=== PATIENT | male | born 1945 | race Caucasian/White ===

== ENCOUNTER → 2016-06-02 | Outpatient (CLI) | payer BC ==
[2016-06-02 13:04] LABS: BASO % 0.2 %; BASO ABS # 0.01 K/uL (0-0.2); COMPLETE YES; EOS % 2.1 %; HEMATOCRIT 45.5 % (42-52); IG% 0.5 %; LYMPH % 25.6 %; LYMPH ABS # 1.59 K/uL (1.2-3.4); MEAN CELL VOLUME 92.7 fL (80-100); MEAN CORPUSCULAR HEMOGLOBIN 32.8 pg (25-34); MEAN CORPUSCULAR HGB CONC 35.4 g/dl (32-36); MONO % 10.5 %; NEUT % 61.1 %; PLATELET COUNT 203 K/uL (130-400); RED BLOOD COUNT 4.91 M/uL (4.7-6.1); WHITE BLOOD COUNT 6.22 K/uL (4.8-10.8)
[2016-06-02 13:15] LABS: ALT/SGPT 29 U/L (12-78); AST/SGOT 17 U/L (15-37); BLOOD UREA NITROGEN 11 mg/dl (7-18); BUN/CREATININE RATIO 11.2 (10-20); CALCIUM 8.8 mg/dl (8.5-10.1); CARBON DIOXIDE 30 mmol/L (21-32); CHLORIDE 103 mmol/L (98-107); CREATININE 0.95 mg/dl (0.60-1.40); GLUCOSE 102 mg/dl (70-99); SODIUM 140 mmol/L (136-145)
[2016-06-02 13:20] LABS: ALKALINE PHOSPHATASE 59 U/L (45-117); CHOLESTEROL 176 mg/dl (0-200); CHOLESTEROL/HDL RATIO 3.2; HDL CHOLESTEROL 55 mg/dl; LDL CHOLESTEROL CALCULATED 108 mg/dl; TRIGLYCERIDES 63 mg/dl (0-150); VERY LOW DENSITY LIPOPROT CALC 13 mg/dl
[2016-06-02 13:22] LABS: ESTIMATED AVERAGE GLUCOSE 94 mg/dl; HA1C FLAG Normal (Normal)
--- NOTE | 2016-06-07 12:56 | CODING QUERY MEDICAL NECESSITY ---
SUPPORTING DIAGNOSIS NEEDED A supporting diagnosis is required for the test/procedure performed on this patient in order for us to be reimbursed by the patient's insurance. Please provide a supporting diagnosis for the following test/procedure listed below next to the test name along with your signature. *If there is no additional diagnosis for this patient that would support the following test/procedure please document that below next to the test/procedure. Test(s)/Procedure(s) that require a supporting diagnosis: * PSA DIAGNOSIS: * DOS: 06/02/16 Provider Signature: Date: Thank you Doris Marshall [facility] [employer] [facility] Once completed, please kindly fax back to [phone] For questions please call [phone]
== END | disposition home or self-care (01) ==
LOC: C.LABPBG 08:45
PROVIDERS: ATTEND Internal Medicine
DX: R73.01 Impaired fasting glucose (principal); Z12.5 Encounter for screening for malignant neoplasm of prostate

== ENCOUNTER → 2016-12-13 | Outpatient (CLI) | payer BC ==
[2016-12-13 12:13] LABS: BASO % 0.2 %; BASO ABS # 0.01 K/uL (0-0.2); COMPLETE YES; EOS % 2.8 %; HEMATOCRIT 44.9 % (42-52); IG% 0.3 %; LYMPH % 23.7 %; LYMPH ABS # 1.43 K/uL (1.2-3.4); MEAN CELL VOLUME 91.8 fL (80-100); MEAN CORPUSCULAR HEMOGLOBIN 32.3 pg (25-34); MEAN CORPUSCULAR HGB CONC 35.2 g/dl (32-36); PLATELET COUNT 184 K/uL (130-400); RED BLOOD COUNT 4.89 M/uL (4.7-6.1); WHITE BLOOD COUNT 6.03 K/uL (4.8-10.8)
[2016-12-13 12:16] LABS: ALT/SGPT 25 U/L (12-78); AST/SGOT 18 U/L (15-37); BLOOD UREA NITROGEN 13 mg/dl (7-18); BUN/CREATININE RATIO 12.6 (10-20); CALCIUM 8.7 mg/dl (8.5-10.1); CARBON DIOXIDE 30 mmol/L (21-32); CHLORIDE 104 mmol/L (98-107); CHOLESTEROL 126 mg/dl (0-200); GLUCOSE 95 mg/dl (70-99); POTASSIUM 4.2 mmol/L (3.5-5.1); SODIUM 141 mmol/L (136-145)
[2016-12-13 12:21] LABS: ALB/GLOB RATIO 0.9 (0.9-2); ALKALINE PHOSPHATASE 59 U/L (45-117); CHOLESTEROL/HDL RATIO 2.3; HDL CHOLESTEROL 55 mg/dl; LDL CHOLESTEROL CALCULATED 61 mg/dl; TRIGLYCERIDES 48 mg/dl (0-150); VERY LOW DENSITY LIPOPROT CALC 10 mg/dl
--- NOTE | 2016-12-22 12:59 | CODING QUERY MEDICAL NECESSITY ---
CQSUPPORTING DIAGNOSIS NEEDED A supporting diagnosis is required for the test/procedure performed on this patient in order for us to be reimbursed by the patient's insurance. Please provide a supporting diagnosis for the following test/procedure listed below next to the test name along with your signature. *If there is no additional diagnosis for this patient that would support the following test/procedure please document that below next to the test/procedure. Test(s)/Procedure(s) that require a supporting diagnosis: DOS 12/13/16 PROSTATE SPECIFIC TEST LIPID TEST Provider Signature: Date: Thank you Emerald Z[facility] Information Management Once completed, please kindly fax back to [phone] For questions please call [phone]
== END | disposition home or self-care (01) ==
LOC: C.LABPBG 07:48
PROVIDERS: ATTEND Internal Medicine
DX: F17.200 Nicotine dependence, unspecified, uncomplicated (principal); Z12.5 Encounter for screening for malignant neoplasm of prostate; E78.5 Hyperlipidemia, unspecified

== ENCOUNTER → 2017-03-08 | Outpatient (CLI) | payer BC | END | disposition home or self-care (01) | LOC: C.PATHSPEC 17:07 | PROVIDERS: ATTEND Urology | DX: R97.20 Elevated prostate specific antigen [PSA] (principal) ==

== ENCOUNTER 2017-06-11 15:16 | Inpatient (IN) | payer BC, OTHER ==
[~2017-06-11] VITALS: Ht 172.7 cm; Wt 82.6 kg
[~2017-06-11 15:16] MED LIST: ASPI325T45 PO; ATEN-173 PO; ATEN50TA8 PO; B CO1TAB7 PO; CHOL100010 PO; OMEG10007 PO; SIMV40TA2 PO
--- NOTE | 2017-06-11 15:35 | EMERGENCY ROOM VISIT NOTE ---
History Report prepared by Eitan: Donal Salazar Under the Supervision of: Dr. Ambrose Ronquillo D.O. First contact with patient: 15:26 Chief Complaint: LEG PAIN,LEG INJURY Stated Complaint: SWOLLEN LEFT LEG History of Present Illness The patient is a 72 year old male who presents to the Emergency Room with complaints of cramping left leg pain that began two days ago. He rates his pain mild in severity. He has a past medical history of a cardiac stent in place, hypertension, and prostate cancer. He denies any past medical history of PE or DVT. Three days ago, the patient went to his PCP to be evaluated. They next day , he woke up with left leg swelling which has never happened to him before. He then began to have this mild pain to his left calf that he states feels like a "Mj horse." He denies any fevers, headache, chest pain, shortness of breath , nausea, vomiting, abdominal pain, diarrhea, weakness, or numbness. He denies any trauma or injury to the area. He discontinued his Aspirin a couple of days ago to prepare him for his surgical procedure in two weeks. Source of History: patient Onset: two days ago Position: leg (left) Symptom Intensity: mild Quality: cramping Timing: constant Associated Symptoms: No fevers, No headache, No chest pain, No SOB, No nausea, No vomiting, No abdominal pain, No diarrhea, No weakness, No numbness Note: He is experiencing some left leg swelling as well. Review of Systems See HPI for pertinent positives & negatives. A total of 10 systems reviewed and were otherwise negative. Past Medical & Surgical Medical Problems: (1) HTN (hypertension) Family History Omitted secondary to the patient's age. Social History Smoking Status: Former Smoker Drug Use: none Marital Status: Housing Status: lives with family Occupation Status: retired Current/Historical Medications Scheduled Aspirin (Aspirin), 325 MG PO QAM Atenolol (Tenormin), 50 MG PO AM Atenolol (Atenolol), 25 MG PO HS B Complex W/ C (B Complex with C), 1 TAB PO QPM Cholecalciferol (Vitamin D), 1,000 INTER.UNIT PO QPM Fish Oil ([place]-3), 1 CAP PO QPM Simvastatin (Zocor), 40 MG PO QPM Allergies Coded Allergies: No Known Allergies (Verified , 2/13/18) Physical Exam Vital Signs Date Time Temp Pulse Resp B/P (MAP) Pulse Ox O2 Delivery O2 Flow Rate FiO2 06/11/17 17:25 67 133/72 94 Room Air 06/11/17 15:18 36.9 69 20 127/66 98 Room Air Physical Exam GENERAL: Patient is awake, alert, and in no acute distress. Patient is resting comfortably and showing no signs of anxiety EYES: The conjunctivae are clear. The pupils are round and reactive. EARS, NOSE, MOUTH AND THROAT: The nose is without any evidence of any deformity. Mucous membranes are moist tongue is midline NECK: The neck is nontender and supple. RESPIRATORY: Normal respiratory effort is noted there is no evidence of wheezing rhonchi or rales CARDIOVASCULAR: Regular rate and rhythm noted there no murmurs rubs or gallops normal S1 normal S2 GASTROINTESTINAL: The abdomen is soft. Bowel sounds are present in all quadrants. Abdomen is nontender MUSCULOSKELETAL/EXTREMITIES: There is no evidence of gross deformity full range of motion is noted in the hips and shoulders. Left calf tenderness to palpation. SKIN: Pedal edema bilaterally, left greater than right. Skin is warm and dry. Pulses symmetric. There is no obvious evidence of any rash. There are no petechiae, pallor or cyanosis noted. NEUROLOGIC: Patient is awake alert and oriented x3 strength is symmetric patellar reflexes are 2+ bilaterally Medical Decision & Procedures ER Provider Diagnostic Interpretation: Radiology results as stated below per my review and radiologist interpretation: ULTRASOUND VENOUS DOPPLER LWR EXT BILA CLINICAL HISTORY: Bilateral leg pain and swelling COMPARISON STUDY: No previous studies for comparison. FINDINGS: On the right, no intraluminal thrombus was visualized. The common femoral superficial femoral popliteal anterior tibial posterior tibial and peroneal veins are patent. On the left there is extensive thrombus with involvement of the common femoral, superficial femoral, popliteal, posterior tibial, peroneal and anterior tibial veins. IMPRESSION: 1. Extensive left lower extremity DVT 2. No evidence of right lower extremity DVT Electronically signed by: Charles Montague M.D. 06/11/2017 4:56 PM Dictated Date/Time: 06/11/2017 4:55 PM Laboratory Results 06/11/17 15:54 Test 06/11/17 15:54 Anion Gap 5.0 mmol/L (3-11) Est Creatinine Clear Calc Drug Dose 94.4 ml/min Estimated GFR () 106.4 Estimated GFR (Non- 91.8 BUN/Creatinine Ratio 6.4 (10-20) Calcium Level 8.7 mg/dl (8.5-10.1) Total Bilirubin 0.6 mg/dl (0.2-1) Aspartate Amino Transf (AST/SGOT) 14 U/L (15-37) Alanine Aminotransferase (ALT/SGPT) 17 U/L (12-78) Alkaline Phosphatase 69 U/L (45-117) Total Protein 7.6 gm/dl (6.4-8.2) Albumin 3.5 gm/dl (3.4-5.0) Globulin 4.1 gm/dl (2.5-4.0) Albumin/Globulin Ratio 0.9 (0.9-2) Laboratory results per my review. Medications Administered Medications (Trade) Dose Ordered Sig/Annie Route Start Time Stop Time Status Last Admin Dose Admin Enoxaparin Sodium (Lovenox Inj) 85 mg NOW ONCE SQ 06/11/17 17:15 06/11/17 17:16 DC 06/11/17 17:23 85 MG ED Course 1526: The patient was evaluated in room A11A. A complete history and physical examination were performed. 1715: Ordered Lovenox Inj 85 mg SQ 1720: Upon reevaluation, the patient is resting. I discussed results and treatment plan with him. He verbalizes agreement and understanding. I spoke with Dr. Arcos of the [facility]. The patient will be evaluated for further management and care. Medical Decision Differential diagnosis: Etiologies such as DVT, musculoskeletal, infection, joint effusion, trauma, lymphedema, idiopathic, CHF, as well as others were entertained.. Nursing notes reviewed. The patient is a 72-year-old male who presented to the emergency department with lower extremity edema. The patient has been noticing leg swelling for a short while. He is currently awaiting a workup because he was recently diagnosed with prostate cancer. The patient was found to have an extensive DVT in his left lower extremity. The patient was treated with Lovenox in the emergency department. I discussed this case with the on-call [facility] hospitalist group. They have agreed to evaluate the patient in the emergency department for further management and disposition. I discussed the patient's laboratory and radiographic studies with him. Medication Reconcilliation Current Medication List: was personally reviewed by me Blood Pressure Screening Patient's blood pressure: Normal blood pressure Blood pressure disposition: Did not require urgent referral Consults Time Called: 1715 Consulting Physician: Dr. Isrrael Laurent [facility] Returned Call: 1720 I discussed the patient's case with her. The patient will be evaluated for further management. Impression Primary Impression: Deep vein thrombosis (DVT) of left lower extremity Scribe Attestation The scribe's documentation has been prepared under my direction and personally reviewed by me in its entirety. I confirm that the note above accurately reflects all work, treatment, procedures, and medical decision making performed by me. Departure Information Dispostion Being Evaluated By Hospitalist Referrals Richard Bonilla M.D. (PCP) Patient Instructions My [facility] Problem Qualifiers Primary Impression: Deep vein thrombosis (DVT) of left lower extremity Affected thrombotic vein of extremity: unspecified vein of extremity Chronicity: acute Qualified Codes: I82.402 - Acute embolism and thrombosis of unspecified deep veins of left lower extremity
[2017-06-11 16:05] LABS: BASO % 0.1 %; BASO ABS # 0.01 K/uL (0-0.2); EOS % 2.2 %; EOS ABS # 0.17 K/uL (0-0.5); HEMOGLOBIN 15.1 g/dL (14.0-18.0); IG# 0.04 K/uL (0.00-0.02); LYMPH % 17.5 %; LYMPH ABS # 1.35 K/uL (1.2-3.4); MEAN CELL VOLUME 92.3 fL (80-100); MEAN CORPUSCULAR HEMOGLOBIN 32.4 pg (25-34); MEAN CORPUSCULAR HGB CONC 35.1 g/dl (32-36); MEAN PLATELET VOLUME 9.2 fL (7.4-10.4); MONO % 9.2 %; MONO ABS # 0.71 K/uL (0.11-0.59); NEUT % 70.5 %; NEUT ABS # 5.45 K/uL (1.4-6.5); PLATELET COUNT 149 K/uL (130-400); RED CELL DISTRIBUTION WIDTH CV 13.1 % (11.5-14.5); RED CELL DISTRIBUTION WIDTH SD 43.8 fL (36.4-46.3); WHITE BLOOD COUNT 7.73 K/uL (4.8-10.8)
[2017-06-11 16:19] LABS: PTT PATIENT 28.9 SECONDS (21.0-31.0)
[2017-06-11 16:23] LABS: ALBUMIN 3.5 gm/dl (3.4-5.0); CALCIUM 8.7 mg/dl (8.5-10.1); CREATININE 0.76 mg/dl (0.60-1.40); POTASSIUM 3.8 mmol/L (3.5-5.1)
[2017-06-11] MEDS ORDERED: TNR50 PO (16:24)
[2017-06-11 16:28] LABS: TOTAL PROTEIN 7.6 gm/dl (6.4-8.2)
--- NOTE | 2017-06-11 16:58 | DIAGNOSTIC IMAGING REPORT ---
ULTRASOUND VENOUS DOPPLER LWR EXT BILA CLINICAL HISTORY: Bilateral leg pain and swelling COMPARISON STUDY: No previous studies for comparison. FINDINGS: On the right, no intraluminal thrombus was visualized. The common femoral superficial femoral popliteal anterior tibial posterior tibial and peroneal veins are patent. On the left there is extensive thrombus with involvement of the common femoral, superficial femoral, popliteal, posterior tibial, peroneal and anterior tibial veins. IMPRESSION: 1. Extensive left lower extremity DVT 2. No evidence of right lower extremity DVT Electronically signed by: Charles Montague M.D. 06/11/2017 4:56 PM Dictated Date/Time: 06/11/2017 4:55 PM
[2017-06-11] MEDS ORDERED: ENOXAPARIN 100 MG/1ML SYR SQ ONE (17:15)
[2017-06-11] MEDS ORDERED: MAGNESIUM HYDROXIDE SUSP 30 ML UDC PO PRN (18:15)
[2017-06-11] MEDS ORDERED: ONDANSETRON INJ 2 MG/ML 2 ML VIAL IV PRN (18:15)
[2017-06-11] MEDS ORDERED: ACETAMINOPHEN 325 MG TAB PO PRN (18:15)
[2017-06-11] MEDS ORDERED: LORAZEPAM 2 MG/ML 1 ML VIAL IV PRN (18:30)
--- NOTE | 2017-06-11 18:32 | History and Physical ---
History & Physical Date & Time of Service: Jun 11, 2017 at 18:19 Chief Complaint: Swollen Left Leg Primary Care Physician: Richard Bonilla M.D. History of Present Illness Source: patient 72 y/o M c/o L LE pain and swelling. Pt states he was seen by PCP on Tuesday for a check-up and had no LE swelling or pain at that time. AM he woke up with L LE pain and swelling that has increased since that time. Pain is worse with ambulation. He has never had LE swelling like this before. No chest pain or SOB. Pt denies lightheadedness, dizziness fever, abd pain, n/v/c/ d. He has no prior hx of clotting. Pt with recent dx of prostate cancer. He was to have his prostate removed on 06/16. He takes aspirin for hx of SC and stent 17 years ago. This has been on hold since Tuesday for this procedure. Pt states he has held his aspirin prior for a c-scope x10 days and no issues. Past Medical/Surgical History Prostate ca, noted above hx of SC, s/p stent x17 years HTN Hyperlipidemia Family History Denies hx of clotting in other family Social History Smoking Status: Former Smoker (quit "a couple of years ago") Alcohol Use: 2-3 beers daily, has days without alcohol and no s/sx of withdrawal, is present and agrees Drug Use: none Marital Status: Occupational Status: retired Multi-Drug Resistant Organisms History of MDRO: No Allergies Coded Allergies: No Known Allergies (Verified , 05/31/17) Home Medications Scheduled Aspirin (Aspirin), 325 MG PO QAM Atenolol (Tenormin), 50 MG PO AM Atenolol (Atenolol), 25 MG PO HS B Complex W/ C (B Complex with C), 1 TAB PO QPM Cholecalciferol (Vitamin D), 1,000 INTER.UNIT PO QPM Fish Oil ([place]-3), 1 CAP PO QPM Simvastatin (Zocor), 40 MG PO QPM Review of Systems Pertinent positives and negatives reviewed in HPI--all others negative Physical Exam Vital Signs Date Time Temp Pulse Resp B/P (MAP) Pulse Ox O2 Delivery O2 Flow Rate FiO2 06/11/17 17:25 67 133/72 94 Room Air 06/11/17 15:18 36.9 69 20 127/66 98 Room Air General Appearance: WD/WN, no apparent distress Head: normocephalic, atraumatic Eyes: normal inspection, sclerae normal Respiratory/Chest: normal breath sounds, no respiratory distress Cardiovascular: regular rate, rhythm, no edema Abdomen/GI: non tender, soft Extremities/Musculoskelatal: no calf tenderness, no pedal edema Neurologic/Psych: alert, normal mood/affect, oriented x 3 Skin: normal color, warm/dry Diagnostics Laboratory Results Results Past 24 Hours Test 06/11/17 15:54 Range/Units White Blood Count 7.73 4.8-10.8 K/uL Red Blood Count 4.66 4.7-6.1 M/uL Hemoglobin 15.1 14.0-18.0 g/dL Hematocrit 43.0 42-52 % Mean Corpuscular Volume 92.3 80-100 fL Mean Corpuscular Hemoglobin 32.4 25-34 pg Mean Corpuscular Hemoglobin Concent 35.1 32-36 g/dl Platelet Count 149 130-400 K/uL Mean Platelet Volume 9.2 7.4-10.4 fL Neutrophils (%) (Auto) 70.5 % Lymphocytes (%) (Auto) 17.5 % Monocytes (%) (Auto) 9.2 % Eosinophils (%) (Auto) 2.2 % Basophils (%) (Auto) 0.1 % Neutrophils # (Auto) 5.45 1.4-6.5 K/uL Lymphocytes # (Auto) 1.35 1.2-3.4 K/uL Monocytes # (Auto) 0.71 0.11-0.59 K/uL Eosinophils # (Auto) 0.17 0-0.5 K/uL Basophils # (Auto) 0.01 0-0.2 K/uL RDW Standard Deviation 43.8 36.4-46.3 fL RDW Coefficient of Variation 13.1 11.5-14.5 % Immature Granulocyte % (Auto) 0.5 % Immature Granulocyte # (Auto) 0.04 0.00-0.02 K/uL Prothrombin Time 10.0 9.0-12.0 SECONDS Prothromb Time International Ratio 1.0 0.9-1.1 Activated Partial Thromboplast Time 28.9 21.0-31.0 SECONDS Partial Thromboplastin Ratio 1.1 Sodium Level 134 136-145 mmol/L Potassium Level 3.8 3.5-5.1 mmol/L Chloride Level 100 98-107 mmol/L Carbon Dioxide Level 29 21-32 mmol/L Anion Gap 5.0 3-11 mmol/L Blood Urea Nitrogen 5 7-18 mg/dl Creatinine 0.76 0.60-1.40 mg/dl Est Creatinine Clear Calc Drug Dose 94.4 ml/min Estimated GFR () 106.4 Estimated GFR (Non- 91.8 BUN/Creatinine Ratio 6.4 10-20 Random Glucose 94 70-99 mg/dl Calcium Level 8.7 8.5-10.1 mg/dl Total Bilirubin 0.6 0.2-1 mg/dl Aspartate Amino Transf (AST/SGOT) 14 15-37 U/L Alanine Aminotransferase (ALT/SGPT) 17 12-78 U/L Alkaline Phosphatase 69 45-117 U/L Total Protein 7.6 6.4-8.2 gm/dl Albumin 3.5 3.4-5.0 gm/dl Globulin 4.1 2.5-4.0 gm/dl Albumin/Globulin Ratio 0.9 0.9-2 Diagnostic Radiology LE US: R neg On the left there is extensive thrombus with involvement of the common femoral, superficial femoral, popliteal, posterior tibial, peroneal and anterior tibial veins. Impression Assessment and Plan 72 y/o M who was admitted on 06/11 for extensive L LE DVT L LE DVT: noted to be extensive, likely related to prostate ca Lovenox x1 in the ED, will start on heparin and monitor Holding PO agents given possible prostate surgery No s/sx of PE, will hold on scan for now. Discussed with pt and Prostate ca: Planning for prostatectomy on 06/[address] Springer Urology c/s for further planning to determine coagulation options It is unclear if the prostate dx requires urgent intervention vs waiting for tx of DVT prior to surgery CAD: s/p stent Aspirin on hold for OR Alcohol use: no hx of withdrawal and reports 2-3 beers daily, which agrees with Ativan PRN with WAS assessment Will hold on scheduled prevention for now but advised to call nursing if any concern for anxiety, nervousness, shaking, etc HTN: stable, continue home meds HLD: continue home meds Other: Full code AHA diet Heparin for DVT proph Level of Care Telemetry Resuscitation Status FULL RESUSCITATION VTE Prophylaxis VTE Risk Assessment Done? Y/N: Yes Risk Level: Low
[2017-06-11 19:15] VITALS: BP 165/70; PULSE 66; TEMP 37; O2SAT 92; Ht 172.7 cm; Wt 82.6 kg
[2017-06-11 19:19] VITALS: BP 165/70; PULSE 70; TEMP 37; O2SAT 88
[2017-06-11 19:24] VITALS: PULSE 66; O2SAT 92
[2017-06-11] MEDS: SIMVASTATIN 40 MG TAB PO SCH (22:00)
[2017-06-11] MEDS: CHOLECALCIFEROL 1000 INTER.UNIT TAB PO SCH (22:01)
[2017-06-11 23:25] VITALS: BP 113/57; PULSE 67; TEMP 36.7; O2SAT 92
[2017-06-12] VITALS (10 sets, daily range): BP systolic 105–125; BP diastolic 58–73; PULSE 60–69; TEMP 36.7–37; O2SAT 91–93
[2017-06-12 04:24] LABS: BASO % 0.1 %; BASO ABS # 0.01 K/uL (0-0.2); EOS % 3.5 %; EOS ABS # 0.24 K/uL (0-0.5); HEMATOCRIT 40.4 % (42-52); HEMOGLOBIN 14.1 g/dL (14.0-18.0); IG# 0.02 K/uL (0.00-0.02); LYMPH % 21.8 %; LYMPH ABS # 1.49 K/uL (1.2-3.4); MEAN CELL VOLUME 92.7 fL (80-100); MEAN CORPUSCULAR HEMOGLOBIN 32.3 pg (25-34); MEAN PLATELET VOLUME 9.1 fL (7.4-10.4); MONO % 11.5 %; MONO ABS # 0.79 K/uL (0.11-0.59); NEUT % 62.8 %; NEUT ABS # 4.29 K/uL (1.4-6.5); PLATELET COUNT 146 K/uL (130-400); RED CELL DISTRIBUTION WIDTH CV 13.1 % (11.5-14.5); RED CELL DISTRIBUTION WIDTH SD 44.5 fL (36.4-46.3); WHITE BLOOD COUNT 6.84 K/uL (4.8-10.8)
[2017-06-12 04:28] LABS: MEAN CORPUSCULAR HGB CONC 34.9 g/dl (32-36)
[2017-06-12] MEDS: HEPARIN 25,000 UNIT/500ML D5W 500 ML IV PRN ×3 (05:28→22:55)
[2017-06-12 06:07] LABS: PTT PATIENT 33.4 SECONDS (21.0-31.0)
--- NOTE | 2017-06-12 11:09 | Progress Note ---
Subjective Date of Service: Jun 12, 2017. Subjective Pt evaluation today including: conversation w/ patient, physical exam, lab review, review of studies, review of inpatient medication list Pain: mild left leg pain PO Intake: adequate Voiding: no voiding problems patient feels the same, left leg swollen, mild pain eating well no chest pain, no dyspnea, no tachycardia awaiting urology recommendations discussed possible options with patient such as IVC filter for surgery Problem List Medical Problems: (1) Deep vein thrombosis (DVT) of left lower extremity Status: Acute Review of Systems Musculoskeletal: + swelling (left leg swollen) All Other Systems: Reviewed and Negative Medications Current Inpatient Medications Medications (Trade) Dose Ordered Sig/Annie Route Start Time Stop Time Status Last Admin Dose Admin Acetaminophen (Tylenol Tab) 650 mg Q4H PRN PO 06/11/17 18:15 07/11/17 18:14 Magnesium Hydroxide (Milk Of Magnesia Susp) 30 ml Q12H PRN PO 06/11/17 18:15 07/11/17 18:14 Ondansetron HCl (Zofran Inj) 4 mg Q6H PRN IV 06/11/17 18:15 07/11/17 18:14 Atenolol (Tenormin Tab) 25 mg HS PO 06/11/17 21:00 07/11/17 20:59 06/11/17 22:00 25 MG Atenolol (Tenormin Tab) 50 mg DAILY PO 06/12/17 09:00 07/12/17 08:59 06/12/17 08:57 50 MG Cholecalciferol (Vitamin D Tab) 1,000 inter.unit QPM PO 06/11/17 21:00 07/11/17 20:59 06/11/17 22:01 1,000 INTER.UNIT Simvastatin (Zocor Tab) 40 mg QPM PO 06/11/17 21:00 07/11/17 20:59 06/11/17 22:00 40 MG Vitamin B Complex (Vitamin B Complex) 1 tab QPM PO 06/12/17 21:00 07/12/17 20:59 Lorazepam (Ativan Inj) 0.5 mg Q1H PRN IV 06/11/17 18:30 07/11/17 18:29 Heparin Sodium/ Dextrose 500 ml @ 27 mls/hr [id number] PRN IV 06/12/17 05:23 07/12/17 05:22 06/12/17 07:13 27 MLS/HR Objective Vital Signs Date Time Temp Pulse Resp B/P (MAP) Pulse Ox O2 Delivery O2 Flow Rate FiO2 06/12/17 07:41 36.9 62 20 105/58 (74) 91 Room Air 06/12/17 05:06 Room Air 06/12/17 04:15 36.7 64 16 118/70 (86) 92 Room Air 06/12/17 00:00 Room Air 06/11/17 23:25 36.7 67 20 113/57 (75) 92 Room Air 67 06/11/17 19:24 66 92 Room Air 06/11/17 19:19 37.0 70 18 165/70 (101) 88 Room Air 06/11/17 19:15 37.0 66 18 165/70 92 Room Air 06/11/17 19:09 64 133/56 95 06/11/17 17:25 67 133/72 94 Room Air 06/11/17 15:18 36.9 69 20 127/66 98 Room Air Physical Exam General Appearance: WD/WN, no apparent distress Eyes: normal inspection, EOMI, sclerae normal ENT: normal ENT inspection, hearing grossly normal, pharynx normal Neck: supple, no adenopathy, no JVD, trachea midline Respiratory/Chest: chest non-tender, lungs clear, normal breath sounds, no respiratory distress, no accessory muscle use Cardiovascular: regular rate, rhythm, no edema, no gallop, no JVD, no murmur Abdomen: normal bowel sounds, non tender, soft, no organomegaly Extremities: no pedal edema, normal capillary refill, pelvis stable, + swelling (left leg swollen, tender to palpation) Neurologic/Psychiatric: ultrasound technician II-XII nml as tested, no motor/sensory deficits, alert, normal mood/affect, oriented x 3 Skin: normal color, warm/dry, no rash Laboratory Results Last 24 Hours Test 06/11/17 15:54 06/12/17 04:14 06/12/17 05:40 White Blood Count 7.73 K/uL 6.84 K/uL Red Blood Count 4.66 M/uL 4.36 M/uL Hemoglobin 15.1 g/dL 14.1 g/dL Hematocrit 43.0 % 40.4 % Mean Corpuscular Volume 92.3 fL 92.7 fL Mean Corpuscular Hemoglobin 32.4 pg 32.3 pg Mean Corpuscular Hemoglobin Concent 35.1 g/dl 34.9 g/dl Platelet Count 149 K/uL 146 K/uL Mean Platelet Volume 9.2 fL 9.1 fL Neutrophils (%) (Auto) 70.5 % 62.8 % Lymphocytes (%) (Auto) 17.5 % 21.8 % Monocytes (%) (Auto) 9.2 % 11.5 % Eosinophils (%) (Auto) 2.2 % 3.5 % Basophils (%) (Auto) 0.1 % 0.1 % Neutrophils # (Auto) 5.45 K/uL 4.29 K/uL Lymphocytes # (Auto) 1.35 K/uL 1.49 K/uL Monocytes # (Auto) 0.71 K/uL 0.79 K/uL Eosinophils # (Auto) 0.17 K/uL 0.24 K/uL Basophils # (Auto) 0.01 K/uL 0.01 K/uL RDW Standard Deviation 43.8 fL 44.5 fL RDW Coefficient of Variation 13.1 % 13.1 % Immature Granulocyte % (Auto) 0.5 % 0.3 % Immature Granulocyte # (Auto) 0.04 K/uL 0.02 K/uL Prothrombin Time 10.0 SECONDS 10.3 SECONDS Prothromb Time International Ratio 1.0 1.0 Activated Partial Thromboplast Time 28.9 SECONDS 33.4 SECONDS Partial Thromboplastin Ratio 1.1 1.3 Sodium Level 134 mmol/L Potassium Level 3.8 mmol/L Chloride Level 100 mmol/L Carbon Dioxide Level 29 mmol/L Anion Gap 5.0 mmol/L Blood Urea Nitrogen 5 mg/dl Creatinine 0.76 mg/dl Est Creatinine Clear Calc Drug Dose 94.4 ml/min Estimated GFR () 106.4 Estimated GFR (Non- 91.8 BUN/Creatinine Ratio 6.4 Random Glucose 94 mg/dl Calcium Level 8.7 mg/dl Total Bilirubin 0.6 mg/dl Aspartate Amino Transf (AST/SGOT) 14 U/L Alanine Aminotransferase (ALT/SGPT) 17 U/L Alkaline Phosphatase 69 U/L Total Protein 7.6 gm/dl Albumin 3.5 gm/dl Globulin 4.1 gm/dl Albumin/Globulin Ratio 0.9 Assessment and Plan 72 y/o M who was admitted on 06/11 for extensive L LE DVT, has prostate cancer, diagnosed in March, plan for prostatectomy on 06/16 L LE DVT: noted to be extensive, likely related to prostate ca continue heparin drip since DVT related to malignancy, preferred treatment going forward would be Lovenox ultimately treatment plan will depend on need for prostatectomy certainly if prostatectomy needs to be done, the patient could have a temporary IVC filter no chest pain, no tachycardia, no dyspnea, told patient to alert RN if he has these symptoms and we will get CTA chest Prostate ca: was planning for prostatectomy on 06/[address] Springer awaiting urology consult to see if surgery needs to be done soon can plan for anticoagulation according to urology plan CAD: s/p stent Aspirin on hold for OR no chest pain or pressure Alcohol use: no hx of withdrawal and reports 2-3 beers daily, which agrees with Ativan PRN with WAS assessment no need for scheduled prevention HTN: stable, continue home meds HLD: continue home meds Other: Full code AHA diet Heparin for DVT proph
[2017-06-12 12:04] LABS: PTT PATIENT 53.7 SECONDS (21.0-31.0)
--- NOTE | 2017-06-12 18:43 | Urology Consultation ---
History General Date of Service: Jun 12, 2017. Chief Complaint: Prostate Cancer. LE DVT Primary Care Physician: Richard Bonilla M.D. 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 No previous issues. Denies injury. Does have smoking history. On Heparin> doing well Severe leg pain into groin with burning and radiation and swelling and redness. Has surgery scheduled for Rad Prostate on . Laboratory Labs were reviewed and are within normal limits unless listed below. Labs are available in the chart and at [facility] Problem List Medical Problems: (1) Deep vein thrombosis (DVT) of left lower extremity Status: Acute Past History cancer - prostate Past Surgical History: other (biopsy prostate) Social History Hx Tobacco Use In Past Year?: Yes (chews tobacco prev smoked 1/2 pack per dayx50 yrs.) Marital status: Occupation status: retired History of MDRO No Allergies Coded Allergies: No Known Allergies (Verified , 05/31/17) Medications Home Medications: Home Meds and Scripts Medications Dose Route/Sig Max Daily Dose Days Date Category Dose Instructions Atenolol 50 Mg Tab 25 Mg PO HS 06/11/17 Reported Vitamin D (Cholecalciferol) 1,000 Unit Tab 1,000 Inter.unit PO QPM 05/31/17 Reported MEDICATION CURRENTLY BEING HELD UNTIL OTHERWISE DIRECTED TO TAKE BY MD Asiya Scherer with C (B Complex W/ C) 1 Tab Tab 1 Tab PO QPM 03/30/17 Reported MEDICATION CURRENTLY BEING HELD UNTIL OTHERWISE DIRECTED TO TAKE BY [place]-3 (Fish Oil) 1 Ea Cap 1 Cap PO QPM 03/30/17 Reported MEDICATION CURRENTLY BEING HELD UNTIL OTHERWISE DIRECTED TO TAKE BY Aspirin 325 Mg Tab 325 Mg PO QAM 03/30/17 Reported MEDICATION CURRENTLY BEING HELD UNTIL OTHERWISE DIRECTED TO TAKE BY Tenormin (Atenolol) 50 Mg Tab 50 Mg PO AM 03/30/17 Reported Zocor (Simvastatin) 40 Mg Tab 40 Mg PO QPM 03/30/17 Reported MEDICATION CURRENTLY BEING HELD UNTIL OTHERWISE DIRECTED TO TAKE BY MD Inpatient Medications: Current Inpatient Medications Medications (Trade) Dose Ordered Sig/Annie Route Start Time Stop Time Status Last Admin Dose Admin Acetaminophen (Tylenol Tab) 650 mg Q4H PRN PO 06/11/17 18:15 07/11/17 18:14 Magnesium Hydroxide (Milk Of Magnesia Susp) 30 ml Q12H PRN PO 06/11/17 18:15 07/11/17 18:14 Ondansetron HCl (Zofran Inj) 4 mg Q6H PRN IV 06/11/17 18:15 07/11/17 18:14 Atenolol (Tenormin Tab) 25 mg HS PO 06/11/17 21:00 07/11/17 20:59 06/11/17 22:00 25 MG Atenolol (Tenormin Tab) 50 mg DAILY PO 06/12/17 09:00 07/12/17 08:59 06/12/17 08:57 50 MG Cholecalciferol (Vitamin D Tab) 1,000 inter.unit QPM PO 06/11/17 21:00 07/11/17 20:59 06/11/17 22:01 1,000 INTER.UNIT Simvastatin (Zocor Tab) 40 mg QPM PO 06/11/17 21:00 07/11/17 20:59 06/11/17 22:00 40 MG Vitamin B Complex (Vitamin B Complex) 1 tab QPM PO 06/12/17 21:00 07/12/17 20:59 Lorazepam (Ativan Inj) 0.5 mg Q1H PRN IV 06/11/17 18:30 07/11/17 18:29 Heparin Sodium/ Dextrose 500 ml @ 27 mls/hr [id number] PRN IV 06/12/17 05:23 07/12/17 05:22 06/12/17 07:13 27 MLS/HR Review of Systems Review of Systems All Other Systems: Reviewed and Negative (All pertinent values in HPI) Physical Exam Vital Signs: Vital Signs Past 12 Hours Date Time Temp Pulse Resp B/P (MAP) Pulse Ox O2 Delivery O2 Flow Rate FiO2 06/12/17 16:00 91 Room Air 06/12/17 15:41 36.9 69 18 116/73 (87) 91 06/12/17 12:16 36.9 62 18 112/65 (81) 92 Room Air 06/12/17 12:00 91 Room Air 06/12/17 08:00 91 Room Air 06/12/17 07:41 36.9 62 20 105/58 (74) 91 Room Air Physical Exam: General Appearance: WD/WN, no apparent distress Eyes: bilateral eyes normal inspection ENT: normal ENT inspection, TMs normal, pharynx normal Neck: supple, no JVD Respiratory/Chest: chest non-tender, no respiratory distress, no accessory muscle use Cardiovascular: regular rate, rhythm Gastrointestinal: Abdomen: normal abdomen Bladder: normal bladder Extremities: normal range of motion, + calf tenderness 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 Prostate Cancer 2. Acute DVT. Patient has surgery scheduled for . Will alert surgeon of findings. Currently on Heparin. Patient unsure of anticoagulation plan. Will monitor. Likely will be inpatient for 1-2 more days. Will discuss options. Imaging, labs, and results reviewed and interpreted by myself. History reviewed.
[2017-06-12] MEDS: SIMVASTATIN 40 MG TAB PO SCH (20:56)
[2017-06-12] MEDS: CHOLECALCIFEROL 1000 INTER.UNIT TAB PO SCH ×2 (20:58→21:48)
[2017-06-12] MEDS ORDERED: VITAMIN B COMPLEX TAB PO SCH (21:00)
[2017-06-13] VITALS (8 sets, daily range): BP systolic 95–118; BP diastolic 58–66; PULSE 58–88; TEMP 36.7–36.8; O2SAT 91–97
[2017-06-13 07:00] LABS: PTT PATIENT 66.9 SECONDS (21.0-31.0)
[2017-06-13] MEDS: HEPARIN 25,000 UNIT/500ML D5W 500 ML IV PRN (07:18)
--- NOTE | 2017-06-13 09:28 | Progress Note ---
Subjective Date of Service: Jun 13, 2017. Subjective Pt evaluation today including: conversation w/ patient, chart review Voiding: no voiding problems 72 yo male with prostate cancer admitted with DVT. Pt denies pain this morning. Problem List Medical Problems: (1) Deep vein thrombosis (DVT) of left lower extremity Status: Acute Review of Systems Constitutional: No fever, No chills Respiratory: No shortness of breath Cardiac: No chest pain Abdomen: No pain, No nausea, No vomiting Heme: No abnormal bleeding/bruising Objective Vital Signs Date Time Temp Pulse Resp B/P (MAP) Pulse Ox O2 Delivery O2 Flow Rate FiO2 06/13/17 08:29 64 18 114/66 (82) 92 Room Air 06/13/17 08:00 92 Room Air 06/13/17 07:09 36.8 59 16 95/60 (72) 91 Room Air 06/13/17 03:53 Room Air 06/13/17 03:36 36.7 58 20 105/58 (74) 95 Room Air 06/13/17 00:00 Room Air 06/12/17 23:42 105/59 (74) 06/12/17 23:22 37.0 60 18 93 Room Air 06/12/17 20:24 36.9 65 18 125/70 (88) 92 Room Air 06/12/17 20:20 Room Air 06/12/17 16:00 91 Room Air 06/12/17 15:41 36.9 69 18 116/73 (87) 91 06/12/17 12:16 36.9 62 18 112/65 (81) 92 Room Air 06/12/17 12:00 91 Room Air Physical Exam General Appearance: no apparent distress Eyes: normal inspection ENT: hearing grossly normal Neck: no JVD Respiratory/Chest: no respiratory distress, no accessory muscle use Cardiovascular: no JVD Extremities: normal inspection Neurologic/Psychiatric: alert, normal mood/affect, oriented x 3 Skin: normal color Laboratory Results Last 24 Hours Test 06/12/17 11:38 06/13/17 06:13 Activated Partial Thromboplast Time 53.7 SECONDS 66.9 SECONDS Partial Thromboplastin Ratio 2.1 2.6 Assessment and Plan A/P: DVT, prostate cancer AFVSS. Discussed pt's DVT with Dr. Springer this morning. Will plan to cancel his RALRP scheduled for Thursday. Anticoagulation as per primary service. The pt will f/u with Dr. Springer in 2 weeks and will discuss rescheduling surgery at that time. No further management at this time. Thanks for allowing us to participate in this pt's care.
[2017-06-13] MEDS ORDERED: ENOXAPARIN 120 MG/0.8 ML SYR SQ SCH (16:00)
[2017-06-13] MEDS ORDERED: NURSING VERBAL MED ORDER ONE (16:00)
[2017-06-13] MEDS ORDERED: LVNIS120 SQ (16:06)
[2017-06-13] MEDS ORDERED: ASPI81TA28 PO (16:06)
--- NOTE | 2017-06-13 16:07 | Discharge Instructions ---
Discharge Instructions Date of Service Jun 13, 2017. Admission Reason for Admission: Dvt Of Left Lower Extremity Discharge Discharge Diagnosis / Problem: dvt OF LEFT LOWER EXTREMITY Discharge Goals Goal(s): Decrease discomfort, Improve function Activity Recommendations Activity Limitations: as noted below Lifting Limitations: gradually increase as tolerated . Instructions / Follow-Up Instructions / Follow-Up F/U with PCP in 1-2 weeks Follow up with Dr. Springer in 2 weeks Current Hospital Diet Patient's current hospital diet: AHA Diet (Heart Healthy) Discharge Diet Recommended Diet: AHA Diet (Heart Healthy) Pending Studies Studies pending at discharge: no Medical Emergencies . Who to Call and When: Medical Emergencies: If at any time you feel your situation is an emergency, please call 911 immediately. . Non-Emergent Contact Non-Emergency issues call your: Primary Care Provider Call Non-Emergent contact if: your pain is worsening . . "Provider Documentation" section prepared by Taye Barnes. . VTE Core Measure Inpt VTE Proph given/why not?: Enoxaparin (Lovenox)SQ
[2017-06-13] MEDS ORDERED: LOVENOX TEACHING KIT SCH (17:00)
--- NOTE | 2017-06-13 23:00 | Discharge Summary ---
Discharge Summary Date of Service Jun 13, 2017. Discharge Summary Admission Date: Jun 11, 2017 at 18:18 Discharge Date: Jun 13, 2017 Discharge Disposition: Home Principal Diagnosis: Extensive DVT Problems/Secondary Diagnoses: Noted in hospital course Procedures: ULTRASOUND VENOUS DOPPLER LWR EXT BILA CLINICAL HISTORY: Bilateral leg pain and swelling COMPARISON STUDY: No previous studies for comparison. FINDINGS: On the right, no intraluminal thrombus was visualized. The common femoral superficial femoral popliteal anterior tibial posterior tibial and peroneal veins are patent. On the left there is extensive thrombus with involvement of the common femoral, superficial femoral, popliteal, posterior tibial, peroneal and anterior tibial veins. IMPRESSION: 1. Extensive left lower extremity DVT 2. No evidence of right lower extremity DVT Consultations: Urology Medication Reconciliation New Medications: Aspirin (Aspirin Ec) 81 Mg Tab 1 TAB PO DAILY for 30 Days, #30 TAB 2 Refills Enoxaparin (Lovenox) 120 Mg/0.8 Ml Inj 120 MG SQ Q24H for 30 Days, #30 SYR 2 Refills Take at 4pm everyday Continued Medications: Atenolol (Tenormin) 50 Mg Tab 50 MG PO AM, TAB Atenolol (Atenolol) 50 Mg Tab 25 MG PO HS B Complex W/ C (B Complex with C) 1 Tab Tab 1 TAB PO QPM Cholecalciferol (Vitamin D) 1,000 Unit Tab 1000 INTER.UNIT PO QPM Fish Oil ([place]-3) 1 Ea Cap 1 CAP PO QPM, CAP Simvastatin (Zocor) 40 Mg Tab 40 MG PO QPM, TAB Discontinued Medications: Aspirin (Aspirin) 325 Mg Tab 325 MG PO QAM MEDICATION CURRENTLY BEING HELD UNTIL OTHERWISE DIRECTED TO TAKE BY MD Discharge Exam Review of Systems: Constitutional: No fever, No chills ENT: No hearing loss Respiratory: No cough, No sputum Cardiovascular: No chest pain, No orthopnea Abdomen: No pain, No nausea Musculoskeletal: No joint pain Neurologic: No memory loss, No paralysis Psychiatric: No depression symptoms Endocrine: No fatigue Hematologic / Lymphatic: + clotting problems, No abnormal bleeding/bruising Integumentary: No rash Physical Exam: General Appearance: WD/WN, no apparent distress Eyes: normal inspection ENT: normal ENT inspection Neck: supple, no adenopathy Respiratory/Chest: chest non-tender, lungs clear, normal breath sounds Cardiovascular: regular rate, rhythm, no edema Abdomen / GI: normal bowel sounds, non tender, soft Extremities: normal inspection, normal range of motion Neurologic/Psychiatric: alert, oriented x 3 Skin: normal color Lymphatic: no adenopathy Hospital Course 72 y/o M who was admitted on 06/11 for extensive L LE DVT, has prostate cancer, diagnosed in March, plan for prostatectomy on 06/16 L LE DVT: noted to be extensive, likely related to prostate ca initially on heaprin drip will discharge patient on lovenox since DVT related to malignancy low risk of P/E as patient is saturating well on room air patient did not want IVC filter Prostate ca: was planning for prostatectomy on 06/[address] Springer Discussed pt's DVT with Dr. Springer this morning. Will plan to cancel his RALRP scheduled for . Anticoagulation as per primary service. The pt will f/u with Dr. Springer in 2 weeks and will discuss rescheduling surgery at that time. CAD: s/p stent will resume home meds Alcohol use: no hx of withdrawal and reports 2-3 beers daily, which agrees with Ativan PRN with WAS assessment no need for scheduled prevention HTN: stable, continue home meds HLD: continue home meds Other: Full code AHA diet Total Time Spent: Greater than 30 minutes This includes examination of the patient, discharge planning, medication reconciliation, and communication with other providers. Discharge Instructions Please refer to the electronic Patient Visit Report (Discharge Instructions) for additional information. Follow-Up f/u as per discharge instructions Additional Copies To Richard Bonilla M.D.
[2017-06-14] MEDS ORDERED: ENOXAPARIN 1.5 MG/KG SQ SCH (15:30)
== END 2017-06-13 16:25 | disposition home or self-care (01) | DRG 301 ==
LOC: C.EDB 15:16 → C.MED 18:18 → ENRESERV 18:26
PROVIDERS: ADMIT Family Medicine; ATTEND Internal Medicine
DX: I82.4Z2 Acute embolism and thrombosis of unspecified deep veins of left distal lower extremity (principal); I10 Essential (primary) hypertension; C61 Malignant neoplasm of prostate; I25.2 Old myocardial infarction; F17.220 Nicotine dependence, chewing tobacco, uncomplicated; I25.10 Atherosclerotic heart disease of native coronary artery without angina pectoris; F10.10 Alcohol abuse, uncomplicated; E78.5 Hyperlipidemia, unspecified; Z79.82 Long term (current) use of aspirin; Z95.818 Presence of other cardiac implants and grafts

== ENCOUNTER → 2017-07-27 | Outpatient (CLI) | payer BC ==
[~2017-07-27] MED LIST changes: -ASPI325T45 PO; +ASPI81TA28 PO; -ATEN-173 PO; +LVNIS120 SQ; +RIVA1TAB4 PO; +TNR50 PO
[2017-07-27 14:24] VITALS: BP 126/83; PULSE 61; TEMP 37.3; O2SAT 96
== END | disposition home or self-care (01) ==
LOC: C.ONC 13:54
PROVIDERS: ATTEND Physician Assistant Medical
DX: C61 Malignant neoplasm of prostate (principal)

== ENCOUNTER 2017-07-31 09:45 | Emergency (ER) | payer BC ==
[~2017-07-31] VITALS: Ht 172.7 cm; Wt 84.1 kg
[~2017-07-31 09:45] MED LIST changes: -LVNIS120 SQ
[2017-07-31 09:49] VITALS: TEMP 36.2; Ht 172.7 cm; Wt 84.1 kg
[2017-07-31] MEDS ORDERED: OXYMETAZOLINE HCL 0.05% NA SPR 15 ML BTL ONE (09:52)
[2017-07-31] MEDS ORDERED: SILVER NITR/POTASSIUM NITRATE APPLICATOR ONE (10:31)
--- NOTE | 2017-07-31 11:38 | EMERGENCY ROOM VISIT NOTE ---
History Report prepared by Valeriibjermaine: Veronica Sanders Under the Supervision of: Dr. Yaniv Grant D.O. First contact with patient: 10:26 Chief Complaint: NOSE BLEED (MINOR) Stated Complaint: NOSE BLEED, PT ON BLOOD THINNER History of Present Illness The patient is a 72 year old male who presents to the Emergency Room with complaints of an intermittent nose bleed since yesterday afternoon. He states the nosebleed started after he bent over yesterday, but it eventually stopped. This morning around 0530, the patient sneezed, and the bleeding started up again. He is on daily Xarelto, but has not taken his dosage for today yet. He denies any other complaints at today's visit. Source of History: patient Onset: yesterday afternoon Position: nose Quality: other (nosebleed) Timing: intermittent Modifying Factors (Worsening): other (bending over, sneezing) Review of Systems See HPI for pertinent positives & negatives. A total of 10 systems reviewed and were otherwise negative. Past Medical & Surgical Medical Problems: (1) HTN (hypertension) Social History Smoking Status: Never Smoker Alcohol Use: none Drug Use: none Marital Status: Housing Status: lives with family Occupation Status: retired Current/Historical Medications Scheduled Aspirin (Aspirin Ec), 1 TAB PO DAILY Atenolol (Tenormin), 50 MG PO AM Atenolol (Atenolol), 25 MG PO HS B Complex W/ C (B Complex with C), 1 TAB PO QPM Cholecalciferol (Vitamin D), 1,000 INTER.UNIT PO QPM Fish Oil ([place]-3), 1 CAP PO QPM Rivaroxaban (Xarelto), 1 TAB PO DAILY Simvastatin (Zocor), 40 MG PO QPM Allergies Coded Allergies: No Known Allergies (Verified , 07/31/17) Physical Exam Vital Signs Date Time Temp Pulse Resp B/P (MAP) Pulse Ox O2 Delivery O2 Flow Rate FiO2 07/31/17 10:38 72 20 124/93 95 07/31/17 09:49 36.2 70 18 154/76 92 Room Air Physical Exam CONSTITUTIONAL/VITAL SIGNS: Reviewed / noted above. GENERAL: Non-toxic in appearance. INTEGUMENTARY: Warm, dry, and [place]. HEAD: Normocephalic. EYES: without scleral icterus or trauma. ENT/OROPHARYNX: Moist mucous membranes. Patient has some non-bleeding superficial vessels in left nares that appear to have been recently bleeding, no active bleeding noticed. LYMPHADENOPATHY/NECK: Is supple without lymphadenopathy or meningismus. RESPIRATORY: Lungs clear and equal. CARDIOVASCULAR: Regular rate and rhythm. GI/ABDOMEN: Soft and nontender. No organomegaly or pulsatile mass. No rebound or guarding. Normal bowel sounds. EXTREMITIES: Warm and well perfused. BACK: No CVA tenderness. NEUROLOGICAL: Intact without focal deficits. PSYCHIATRIC: normal affect. MUSCULOSKELETAL: Normally developed with good muscle tone. Medical Decision & Procedures Medications Administered Medications (Trade) Dose Ordered Sig/Annie Route Start Time Stop Time Status Last Admin Dose Admin Oxymetazoline HCl (Afrin 0.05% Nasal [place]) 75 sprays STK-MED ONCE .ROUTE 07/31/17 09:52 07/31/17 09:53 DC 07/31/17 09:55 75 SPRAYS Silver Nitrate/ Potassium Nitrate (Silver Nitrate Applicators) 1 appl STK-MED ONCE .ROUTE 07/31/17 10:31 07/31/17 10:32 DC 07/31/17 10:31 1 APPL ED Course 0952: Afrin 0.05 75 Sprays IN. 1027: Previous medical records were reviewed. The patient was evaluated in room B3. A complete history and physical examination was performed. 1031: Silver Nitrate 1 application EXT. 1125: On reevaluation, the patient is feeling well and resting comfortably. I discussed the results and findings with the patient. He verbalized agreement of the treatment plan. He was discharged home. Medical Decision Etiologies such as anterior epistaxis, coagulopathy, traumatic injury, fracture , septal hematoma, posterior epistaxis as well as other pathologies were entertained. This is a 72-year-old male who presents to the ED with a chief complaint of epistaxis. The patient states that his symptoms occurred somewhat yesterday and again this morning. He is on Xarelto chronically. The patient has no other complaints. His nose is currently not bleeding on exam. There are a few areas in the left anterior septum that appear may have been recently bleeding. These were cauterized with silver nitrate. On reexam, the nose is not bleeding. There is no posterior oropharyngeal bleeding. The patient is felt to be stable for discharge. He was advised to not take his aspirin or Xarelto today and to resume it tomorrow. Medication Reconcilliation Current Medication List: was personally reviewed by me Blood Pressure Screening Patient's blood pressure: Normal blood pressure Blood pressure disposition: Did not require urgent referral Impression Primary Impression: Bleeding from the nose Scribe Attestation The scribe's documentation has been prepared under my direction and personally reviewed by me in its entirety. I confirm that the note above accurately reflects all work, treatment, procedures, and medical decision making performed by me. Departure Information Dispostion Home / Self-Care Referrals Richard Bonilla M.D. (PCP) Patient Instructions My [facility] Additional Instructions Do not take aspirin or Xarelto today. Resume this tomorrow. Use the nasal compression device if your nosebleeds. Use this for 15 minutes at a time for nose bleeding.
[2017-07-31 11:50] VITALS: BP 128/67; PULSE 62; O2SAT 96
== END 2017-07-31 11:53 | disposition home or self-care (01) ==
LOC: C.EDB 09:46
DX: R04.0 Epistaxis (principal); I10 Essential (primary) hypertension; Z79.82 Long term (current) use of aspirin

== ENCOUNTER 2021-11-29 20:35 | Inpatient (IN) ==
[2021-11-29] MEDS ORDERED: SODIUM CHLORIDE 0.9% 1000ML 1,000 ML IV ONE ×2 (20:52→21:33)
--- NOTE | 2021-11-29 20:58 | Emergency Department Note ---
Impression & Plan COVID-19, Encephalopathy acute, Hypomagnesemia, Acute hyponatremia ED Provider Note Name: DALIA ALDANA Age: 76 Sex: M Arrives Via: Ambulance Informant: Patient poor historian due to encephalopathy, EMS, family ED Provider: Vincenzo Malin MD Chief Complaint: Illness Impression: As per impressions above Medical Decision Makin-year-old gentleman with complex past medical history including CAD, dyslipidemia, DVT, hypertension arrives for evaluation of worsening confusion and fever. He has very junky lung sounds, he is febrile and he is confused. P atient essentially is encephalopathic. He is dehydrated by exam and thus given fluids and with the fever and confusion I did give him 2 L normal saline bolus with vast improvement of his mental status. Chest x-ray without lobar infiltrate and UA is clear. I suspect this is all secondary to COVID, which testing is positive. Better his lungs sound quite poor in the initial evaluation I do not feel be safe for discharge. Hospitalist was consulted for further management. At this point his O2 sats are 94% and we will hold off on steroids for now. Prior Medical Record and Triage/Nursing Notes reviewed by Me Additional history obtained from chart and family Differentials:Viral syndrome, otitis, pharyngitis, pneumonia, influenza, meningitis, urinary tract infection, sepsis, bacteremia, as well as other pathologies. Vital Signs: reviewed and remarkable for fever Interventions: nss bolus 2L IV Labs:Reviewed and remarkable for low magnesium, low sodium, positive COVID Imagin view chest x-ray diffuse viral/congestive findings no lobar infiltrat e as per my evaluation Cardiac/Tele Monitoring: Cardiac Monitoring: An Order was placed for continuous cardiac monitoring. The monitor shows a rate of 8 with a normal sinus rhythm. Consults:Dr Klever DAILEY Hospitalist Plan: Disposition: Hospitalization Condition: Fair History of Present Illness:76-year-old gentleman arrives for evaluation of altered mental status. Patient with increasing fever and confusion throughout the day. Increased urinary burning and frequency and discoloration. In addition he is having increasing cough and congestion. He reportedly was exposed to COVID in the last few days. No falls, trauma, injuries. He received 1 g of Tylenol and 400 mL IV fluids (NSS) by EMS prior to arrival. No recent antibiotics. ROS: Patient confused and unable to give review of systems Past Medical History:See Below Past Surgical History:See Below Family History:See Below Social History:See Below Home Medications:See Below Allergies:nkda Vitals:Blood Pressure: 147/84, Pulse 89, RR 20, T 381C, O2 94% on RA Physical Exam: GENERAL: Patient is tired/dehydrated/ill/confused appearing and in minimal distress. EYES: No scleral icterus, unremarkable pupils. ENT: Mucous membranes moist, no nasal congestion. NECK: No masses appreciated, nomeningismus, trachea is midline. RESPIRATORY: Junky cough with diffuse crackles worse throughout the left lung field CARDIOVASCULAR: Regular rate and rhythm.No murmurs, rubs, gallops appreciated. GASTROINTESTINAL: Abdomen soft, non-tender, no peritonitis.Bowel sounds positive.No masses appreciated. BACK: No midline tenderness, no CVA tenderness EXTREMITIES: Normal motion all extremities, no cyanosis, no edema. NEUROLOGIC: Awake confused periodic non-sensical speech, no acute motor or senso ry deficits, no focal weakness, cranial nerves grossly intact. SKIN: No rash, no jaundice, no diaphoresis. GCS: 15 ED Course: Times/Reassessments: Patient appears much improved he is talking clearly following fluids. Agreeable to hospitalization as his family. Vincenzo Malin MD Past Med/Surg History Medical History Anemia Benign colonic polyp Chronic anticoagulation Chronic obstructive pulmonary disease Dyslipidemia Epistaxis nose bleed 02/05 and had packing. now has scabbed over area and need cauterized 02/22/2019 HTN (hypertension) Hx of deep venous thrombosis 05/2016 -- takes xarelto-TAKEN OFF MED 04/19/19 BY LEANNA SIMPSON Prostate cancer (03/08/17) Surgical History History of colonoscopy X MULTIPLE History of excision of pilonidal cyst History of heart artery stent x 1 ---- 1999 follow with medical doctor History of shoulder surgery right and left Hx of cataract surgery right and left Family History Brother Cardiac disorder Sister Hepatic cirrhosis Denies family history of Ovarian cancer Prostate cancer Myocardial infarction Breast cancer Colorectal cancer Social History Smoking Status: Former smoker Tobacco Type: Cigarettes Age Quit Using Tobacco: 71; Second Hand Exposure: No; Hx Alcohol Use: Yes Alcohol type: beer Alcohol type Comment: 2-3 Alcohol Intake Frequency: 4 or More x per/Week Alcohol Intake Frequency Comment: daily Hx Substance Use: No Preferred Language: Polish Communication Ability: Effective Buggy Ladle Tender Required: No Beliefs That Will Affect Care: None marital status: Current Living Situation: Spouse current occupational status: retired current occupation: semi retired- [employer] Feels Safe at Home: Yes Dental Care, Regularly: No Physical Activity Frequency: Daily Physical Activity Frequency Comment: work Seatbelt Use: never Sunscreen Use: No Assistive Devices: Denture - Upper and Denture - Lower Allergies Allergies Allergy/AdvReac Type Severity Reaction Status Date / Time No Known Allergies Allergy Verified 09/28/21 12:55 Home Meds Home Medications Medication Instructions Recorded Confirmed cholecalciferol (vitamin D3) 25 1,000 unit PO QAM 02/21/19 11/29/21 mcg (1,000 unit) capsule (Vitamin D3) omega 6-llo-ida-fish oil 1,000 mg 1 cap PO QAM 02/21/19 11/29/21 (120 mg-180 mg) capsule (Fish Oil) aspirin 81 mg chewable tablet 81 mg PO QAM 04/20/19 11/29/21 (Colin Chewable Low Dose Aspirin) Previous Rx's Medication Instructions Recorded simvastatin 40 mg tablet 40 mg PO QPM #90 tabs 05/11/21 atenolol 50 mg tablet See Rx Instructions PO DAILY #30 11/26/21 tabs Results & Data (ED) Vital Signs Vital Signs - 24 hr 11/29/21 20:42 11/29/21 20:45 11/29/21 20:45 Temperature 38.1 C H Temperature Source Oral Pulse Rate 89 92 H Pulse Rate from SpO2 Sensor Respiratory Rate 20 25 H Respiratory Depth Normal Blood Pressure 147/84 H 110/64 Blood Pressure Mean 105 79 Pulse Oximetry 94 Oxygen Delivery Method Room Air Sepsis Recent Fever Within 48 Hours Yes Sepsis New/Unexplained Change in Mental Status Yes Sepsis Action Taken by Nursing Physician Notified 11/29/21 20:50 11/29/21 21:00 11/29/21 21:00 Temperature Temperature Source Pulse Rate 87 83 Pulse Rate from SpO2 Sensor Respiratory Rate 27 H 35 H Respiratory Depth Blood Pressure 105/64 Blood Pressure Mean 77 Pulse Oximetry Oxygen Delivery Method Sepsis Recent Fever Within 48 Hours Sepsis New/Unexplained Change in Mental Status Sepsis Action Taken by Nursing 11/29/21 21:06 11/29/21 21:06 11/29/21 21:10 Temperature Temperature Source Pulse Rate 83 81 Pulse Rate from SpO2 Sensor 84 83 Respiratory Rate 24 24 Respiratory Depth Blood Pressure 116/53 L Blood Pressure Mean 74 Pulse Oximetry 94 96 Oxygen Delivery Method Sepsis Recent Fever Within 48 Hours Sepsis New/Unexplained Change in Mental Status Sepsis Action Taken by Nursing 11/29/21 21:20 11/29/21 21:30 11/29/21 21:30 Temperature Temperature Source Pulse Rate 82 78 Pulse Rate from SpO2 Sensor 83 78 Respiratory Rate 16 28 H Respiratory Depth Blood Pressure 110/63 Blood Pressure Mean 78 Pulse Oximetry 97 95 Oxygen Delivery Method Sepsis Recent Fever Within 48 Hours Sepsis New/Unexplained Change in Mental Status Sepsis Action Taken by Nursing 11/29/21 21:40 11/29/21 21:50 11/29/21 22:00 Temperature Temperature Source Pulse Rate 87 83 Pulse Rate from SpO2 Sensor Respiratory Rate 28 H 27 H Respiratory Depth Blood Pressure 126/77 Blood Pressure Mean 93 Pulse Oximetry Oxygen Delivery Method Sepsis Recent Fever Within 48 Hours Sepsis New/Unexplained Change in Mental Status Sepsis Action Taken by Nursing 11/29/21 22:00 11/29/21 22:10 11/29/21 22:20 Temperature Temperature Source Pulse Rate 84 84 87 Pulse Rate from SpO2 Sensor Respiratory Rate 24 25 H 19 Respiratory Depth Blood Pressure Blood Pressure Mean Pulse Oximetry Oxygen Delivery Method Sepsis Recent Fever Within 48 Hours Sepsis New/Unexplained Change in Mental Status Sepsis Action Taken by Nursing Laboratory Data Result diagrams: 11/29/21 20:56 11/29/21 20:56 Lab Results 11/29/21 11/29/21 11/29/21 Range/Units 20:53 20:56 20:56 WBC 7.51 (4.8-10.8) K/ul RBC 4.49 L (4.63-6.08) M/uL Hgb 14.5 (14.0-18.0) g/dl Hct 40.2 (40.1-51.0) % MCV 89.5 (80.0-100.0) fL MCH 32.3 (25.0-34.0) pg MCHC 36.1 H (32.0-36.0) g/dL RDW Std Deviation 41.7 (36.4-46.3) fL RDW Coeff of Ramirez 12.7 (11.5-14.5) % Plt Count 150 (130-400) K/uL MPV 8.9 L (9.4-12.4) fL Immature Gran % (Auto) 1.1 % Neut % (Auto) 87.6 % Lymph % (Auto) 3.6 % [place] % (Auto) 7.6 % Eos % (Auto) 0.0 % Baso % (Auto) 0.1 % Neut # (Auto) 6.58 H (1.4-6.5) K/uL Lymph # (Auto) 0.27 L (1.2-3.4) K/uL [place] # (Auto) 0.57 (0.24-0.82) K/uL Eos # (Auto) 0.00 (0-0.50) K/uL Baso # (Auto) 0.01 (0-0.2) K/uL Immature Gran # (Auto) 0.08 H (0.00-0.02) K/uL PT 11.9 (9.0-12.0) Seconds INR 1.1 (0.9-1.1) Sodium (136-145) mmol/L Potassium (3.5-5.1) mmol/L Chloride (98-107) mmol/L Carbon Dioxide (21-32) mmol/L Anion Gap (3-11) BUN (6-23) mg/dl Creatinine (0.6-1.4) mg/dl Est Cr Clr Drug Dosing ml/min Est GFR ( Amer) ml/min Est GFR (Non-Af Amer) ml/min BUN/Creatinine Ratio (10-20) Glucose (70-99(Fasting)) mg/dl Lactate 1.3 (0.4-2.0) mmol/L Calcium (8.5-10.1) mg/dl Magnesium (1.7-2.4) mg/dl Total Bilirubin (0.2-1.0) mg/dl Direct Bilirubin (0-0.2) mg/dl AST (13-39) U/L ALT (7-52) U/L Alkaline Phosphatase (34-104) U/L Troponin I High Sens (0-20) pg/ml Total Protein (6.0-8.3) gm/dl Albumin (3.4-5.0) gm/dl Lipase (11-82) U/L Procalcitonin (0-0.5) ng/ml Urine Color Urine Appearance (Clear) Urine pH (4.5-7.5) Ur Specific [place] (1.000-1.030) Urine Protein (Negative) Urine Glucose (UA) (Negative) Urine Ketones (Negative) Urine Blood (Negative) Urine Nitrite (Negative) Urine Bilirubin (Negative) Urine Urobilinogen (Negative) Ur Leukocyte Esterase (Negative) Urine WBC (Auto) (0-5) /hpf Urine RBC (Auto) (0-4) /hpf U Hyaline Cast (Auto) (0-5) /lpf U Epithel Cells (Auto) (0-5) /lpf Urine Bacteria (Auto) (Negative) SARS-CoV-2 (PCR) (Negative) 11/29/21 11/29/21 11/29/21 Range/Units 20:56 20:56 21:00 WBC (4.8-10.8) K/ul RBC (4.63-6.08) M/uL Hgb (14.0-18.0) g/dl Hct (40.1-51.0) % MCV (80.0-100.0) fL MCH (25.0-34.0) pg MCHC (32.0-36.0) g/dL RDW Std Deviation (36.4-46.3) fL RDW Coeff of Ramirez (11.5-14.5) % Plt Count (130-400) K/uL MPV (9.4-12.4) fL Immature Gran % (Auto) % Neut % (Auto) % Lymph % (Auto) % [place] % (Auto) % Eos % (Auto) % Baso % (Auto) % Neut # (Auto) (1.4-6.5) K/uL Lymph # (Auto) (1.2-3.4) K/uL [place] # (Auto) (0.24-0.82) K/uL Eos # (Auto) (0-0.50) K/uL Baso # (Auto) (0-0.2) K/uL Immature Gran # (Auto) (0.00-0.02) K/uL PT (9.0-12.0) Seconds INR (0.9-1.1) Sodium 128 L (136-145) mmol/L Potassium 3.5 (3.5-5.1) mmol/L Chloride 93 L (98-107) mmol/L Carbon Dioxide 25 (21-32) mmol/L Anion Gap 10 (3-11) BUN 5 L (6-23) mg/dl Creatinine 0.43 L (0.6-1.4) mg/dl Est Cr Clr Drug Dosing 138.8 ml/min Est GFR ( Amer) 130.7 ml/min Est GFR (Non-Af Amer) 112.8 ml/min BUN/Creatinine Ratio 11.6 (10-20) Glucose 109 H (70-99(Fasting)) mg/dl Lactate (0.4-2.0) mmol/L Calcium 8.1 L (8.5-10.1) mg/dl Magnesium 1.5 L (1.7-2.4) mg/dl Total Bilirubin 1.2 H (0.2-1.0) mg/dl Direct Bilirubin 0.2 (0-0.2) mg/dl AST 17 (13-39) U/L ALT 15 (7-52) U/L Alkaline Phosphatase 66 (34-104) U/L Troponin I High Sens 5.1 (0-20) pg/ml Total Protein 6.1 (6.0-8.3) gm/dl Albumin 3.1 L (3.4-5.0) gm/dl Lipase 8 L (11-82) U/L Procalcitonin 0.11 (0-0.5) ng/ml Urine Color Urine Appearance (Clear) Urine pH (4.5-7.5) Ur Specific [place] (1.000-1.030) Urine Protein (Negative) Urine Glucose (UA) (Negative) Urine Ketones (Negative) Urine Blood (Negative) Urine Nitrite (Negative) Urine Bilirubin (Negative) Urine Urobilinogen (Negative) Ur Leukocyte Esterase (Negative) Urine WBC (Auto) (0-5) /hpf Urine RBC (Auto) (0-4) /hpf U Hyaline Cast (Auto) (0-5) /lpf U Epithel Cells (Auto) (0-5) /lpf Urine Bacteria (Auto) (Negative) SARS-CoV-2 (PCR) POSITIVE A* (Negative) 11/29/21 Range/Units 21:43 WBC (4.8-10.8) K/ul RBC (4.63-6.08) M/uL Hgb (14.0-18.0) g/dl Hct (40.1-51.0) % MCV (80.0-100.0) fL MCH (25.0-34.0) pg MCHC (32.0-36.0) g/dL RDW Std Deviation (36.4-46.3) fL RDW Coeff of Ramirez (11.5-14.5) % Plt Count (130-400) K/uL MPV (9.4-12.4) fL Immature Gran % (Auto) % Neut % (Auto) % Lymph % (Auto) % [place] % (Auto) % Eos % (Auto) % Baso % (Auto) % Neut # (Auto) (1.4-6.5) K/uL Lymph # (Auto) (1.2-3.4) K/uL [place] # (Auto) (0.24-0.82) K/uL Eos # (Auto) (0-0.50) K/uL Baso # (Auto) (0-0.2) K/uL Immature Gran # (Auto) (0.00-0.02) K/uL PT (9.0-12.0) Seconds INR (0.9-1.1) Sodium (136-145) mmol/L Potassium (3.5-5.1) mmol/L Chloride (98-107) mmol/L Carbon Dioxide (21-32) mmol/L Anion Gap (3-11) BUN (6-23) mg/dl Creatinine (0.6-1.4) mg/dl Est Cr Clr Drug Dosing ml/min Est GFR ( Amer) ml/min Est GFR (Non-Af Amer) ml/min BUN/Creatinine Ratio (10-20) Glucose (70-99(Fasting)) mg/dl Lactate (0.4-2.0) mmol/L Calcium (8.5-10.1) mg/dl Magnesium (1.7-2.4) mg/dl Total Bilirubin (0.2-1.0) mg/dl Direct Bilirubin (0-0.2) mg/dl AST (13-39) U/L ALT (7-52) U/L Alkaline Phosphatase (34-104) U/L Troponin I High Sens (0-20) pg/ml Total Protein (6.0-8.3) gm/dl Albumin (3.4-5.0) gm/dl Lipase (11-82) U/L Procalcitonin (0-0.5) ng/ml Urine Color Dark Yellow Urine Appearance Clear (Clear) Urine pH 7.0 (4.5-7.5) Ur Specific [place] 1.022 (1.000-1.030) Urine Protein Trace H (Negative) Urine Glucose (UA) Negative (Negative) Urine Ketones 1+ H (Negative) Urine Blood Negative (Negative) Urine Nitrite Negative (Negative) Urine Bilirubin 1+ H (Negative) Urine Urobilinogen Positive H (Negative) Ur Leukocyte Esterase Negative (Negative) Urine WBC (Auto) 1-5 (0-5) /hpf Urine RBC (Auto) 0-4 (0-4) /hpf U Hyaline Cast (Auto) 1-5 (0-5) /lpf U Epithel Cells (Auto) 20-30 H (0-5) /lpf Urine Bacteria (Auto) Negative (Negative) SARS-CoV-2 (PCR) (Negative) Administered Medications Discontinued Medications Sodium Chloride (Nss 1000ml) 1,000 mls @ 999 mls/hr IV .Q1H1M ONE Stop: 11/29/21 21:52 Last Infusion: 11/29/21 22:28 Dose: 0 mls/hr Documented By: Admin: 11/29/21 22:08 Dose: 999 mls/hr Documented By: ABBI Sodium Chloride (Nss 1000ml) 1,000 mls @ 999 mls/hr IV .Q1H1M ONE Stop: 11/29/21 22:33 Last Infusion: 11/29/21 22:28 Dose: 0 mls/hr Documented By: Admin: 11/29/21 22:08 Dose: 999 mls/hr Documented By: ABBI Sodium Chloride (Nss) 250 mls @ 999 mls/hr IV .Q16M ONE Stop: 11/29/21 21:48 Last Infusion: 08/14/22 22:56 Dose: 0 mls/hr Documented By: Admin: 11/29/21 22:26 Dose: 999 mls/hr Documented By: ABBI Discharge Plan Visit Data Chief Complaint: Weakness Stated Complaint: Weakness, AMS, Fever ED Provider: Vincenzo Malin Discharge Problem: COVID-19, Encephalopathy acute, Hypomagnesemia, Acute hyponatremia Discharge Instructions Interventions: ED Discharge Assessment Last Done: 11/29/21 23:06
[2021-11-29 21:10] LABS: Basophils # (auto) 0.01 K/uL (0-0.2); Basophils % (auto) 0.1 %; Hematocrit (blood only) 40.2 % (40.1-51.0); Hemoglobin 14.5 g/dl (14.0-18.0); Immature Granulocytes # (auto) 0.08 K/uL (0.00-0.02); Immature Granulocytes % (auto) 1.1 %; Lymphocytes # (auto) 0.27 K/uL (1.2-3.4); Lymphocytes % (auto) 3.6 %; Mean Corpuscular Hemoglobin 32.3 pg (25.0-34.0); Mean Corpuscular Hgb Conc 36.1 g/dL (32.0-36.0); Mean Corpuscular Volume 89.5 fL (80.0-100.0); Mean Platelet Volume 8.9 fL (9.4-12.4); Monocytes # (auto) 0.57 K/uL (0.24-0.82); Monocytes % (auto) 7.6 %; Neutrophils # (auto) 6.58 K/uL (1.4-6.5); Neutrophils % (auto) 87.6 %; Platelet Count 150 K/uL (130-400); RDW Coefficient of Variation 12.7 % (11.5-14.5); RDW Standard Deviation 41.7 fL (36.4-46.3); Red Blood Count 4.49 M/uL (4.63-6.08); White Blood Count 7.51 K/ul (4.8-10.8)
[2021-11-29 21:25] LABS: INR 1.1 (0.9-1.1); Prothrombin Time 11.9 Seconds (9.0-12.0)
[2021-11-29 21:30] LABS: Albumin Level 3.1 gm/dl (3.4-5.0); BUN Creatinine Ratio 11.6 (10-20); Bilirubin Direct 0.2 mg/dl (0-0.2); Bilirubin,Total 1.2 mg/dl (0.2-1.0); Calcium 8.1 mg/dl (8.5-10.1); Creatinine Clr Calc Pharmacy 138.8 ml/min; Est GFR (African American) 130.7 ml/min; Est GFR (Non-African American) 112.8 ml/min; Magnesium 1.5 mg/dl (1.7-2.4); Potassium 3.5 mmol/L (3.5-5.1); Total Protein 6.1 gm/dl (6.0-8.3)
[2021-11-29] MEDS ORDERED: SODIUM CHLORIDE 0.9% 250 ML IV ONE (21:33)
[2021-11-29 21:36] LABS: Troponin I High Sensitivity 5.1 pg/ml (0-20)
[2021-11-29 22:18] LABS: Appearance Urine Clear (Clear); Bacteria Urine Automated Negative (Negative); Blood Urine Negative (Negative); Color Urine Dark Yellow; Epithelial Cell Urine Auto 20-30 /lpf (0-5); Glucose Urine UA Negative (Negative); Ketones Urine 1+ (Negative); Leukocyte Esterase Urine Negative (Negative); Nitrite Urine Negative (Negative); Protein Urine Trace (Negative); RBC Urine Automated 0-4 /hpf (0-4); Specific Gravity Urine 1.022 (1.000-1.030); Urobilinogen Urine Positive (Negative)
[2021-11-29 22:24] LABS: Bilirubin Urine 1+ (Negative)
--- NOTE | 2021-11-29 23:05 | History & Physical Report ---
Date of Service November 29, 2021 Assessment & Plan (1) COVID-19: Plan: 76yo male presenting with weakness, confusion and poor oral intake. Patient found to be POSITIVE for Covid-19 infection. He is vaccinated x 2 + booster. No prior history of Covid. No known exposure. He is febrile, HD stable and nontoxic in appearance. He is saturating well on room air with no respiratory distress. Mild moist cough appreciated during exam. -Admit to medical -Maintain isolation precautions -Check CRP, Ferritin, LDH -Monitor oxygenation. Presently no indication for treatment with Dexamethasone or Remdesivir -Tylenol and Zofran PRN -Lovenox 40mg SQ daily (2) Coronary artery disease: Plan: Patient with stable CAD s/p PCI in the right coronary artery without stent placement in 1999. Patient denies chest pain. -Continue ASA 81mg po daily -Continue Simvastatin 40mg po daily -Continue Atenolol 50mg po daily (3) Dyslipidemia: Plan: Chronic. -Continue Simvastatin 40mg po daily (4) HTN (hypertension): Plan: Blood pressure stable -Continue Atenolol -Monitor F/E/N - LR at 125mL/hr x 2 liters, Mg repletion with 3gm IV, repeat Mg level in AM, AHA diet as tolerated Ppx - Lovenox Code -Full Dispo- Admit to medical History of Present Illness Chief Complaint: Covid-19, weakness, confusion Primary Care Provider: Richard Bonilla MD Taye Fernando is a pleasant 76yo male with history of HNT, HLP and COPD presenting with Covid-19 infection and weakness. Patient reports he has overall been doing well. His family at bedside states that he has been weak and slightly confused over the last several days. He slipped from his chair today and was unable to get back up. He has not been eating well or drinking. Also with fever, slight cough. He denies chest pain, palpitations, nausea, vomiting, diarrhea or constipation. No loss of taste or smell. Patient is vaccinated against Covid-19 x 2 + booster No known Covid-19 contacts Febrile in the ER, HD stable. Confused and weak upon arrival which improved with administration of IV fluids. SpO2 has been adequate on room air. ER Course: NSS x 2L Allergies Allergy/AdvReac Type Severity Reaction Status Date / Time No Known Allergies Allergy Verified 09/28/21 12:55 Home Medications Medication Instructions Recorded Confirmed Type cholecalciferol (vitamin D3) 25 1,000 unit PO QAM 02/21/19 11/29/21 History mcg (1,000 unit) capsule (Vitamin D3) omega 6-vjy-yon-fish oil 1,000 mg 1 cap PO QAM 02/21/19 11/29/21 History (120 mg-180 mg) capsule (Fish Oil) aspirin 81 mg chewable tablet 81 mg PO QAM 04/20/19 11/29/21 History (Colin Chewable Low Dose Aspirin) simvastatin 40 mg tablet 40 mg PO QPM #90 tabs 05/11/21 11/29/21 Rx atenolol 50 mg tablet See Rx Instructions PO DAILY #30 11/26/21 11/29/21 Rx tabs Past Med/Surg History Medical History Anemia Benign colonic polyp Chronic anticoagulation Chronic obstructive pulmonary disease Dyslipidemia Epistaxis nose bleed 02/05 and had packing. now has scabbed over area and need cauterized 02/22/2019 HTN (hypertension) Hx of deep venous thrombosis 05/2016 -- takes xarelto-TAKEN OFF MED 04/19/19 BY LEANNA SIMPSON Prostate cancer (03/08/17) Surgical History History of colonoscopy X MULTIPLE History of excision of pilonidal cyst History of heart artery stent x 1 ---- 1999 follow with medical doctor History of shoulder surgery right and left Hx of cataract surgery right and left Family History Brother Cardiac disorder Sister Hepatic cirrhosis Denies family history of Ovarian cancer Prostate cancer Myocardial infarction Breast cancer Colorectal cancer Social History Smoking Status: Former smoker Tobacco Type: Cigarettes Age Quit Using Tobacco: 71; Second Hand Exposure: No; Hx Alcohol Use: Yes Alcohol type: beer Alcohol type Comment: 2-3 Alcohol Intake Frequency: 4 or More x per/Week Alcohol Intake Frequency Comment: daily Hx Substance Use: No Preferred Language: Italian Communication Ability: Effective Carpet Technician Required: No Beliefs That Will Affect Care: None marital status: Current Living Situation: Spouse current occupational status: retired current occupation: semi retired- [employer] Feels Safe at Home: Yes Dental Care, Regularly: No Physical Activity Frequency: Daily Physical Activity Frequency Comment: work Seatbelt Use: never Sunscreen Use: No Assistive Devices: Denture - Upper and Denture - Lower Review of Systems Review of Systems: All systems reviewed & are unremarkable except as noted in HPI & below Physical Exam Physical Exam: General: patient resting comfortably, NAD, non-toxic in appearance, AA&O x 4 Skin: warm, dry, intact, no rashes or lesions HEENT: NC/AT, PERRL, EOMI, anicteric sclera, conjunctiva without injection, external ear normal to inspection and nontender, nares patent, slightly dry mucus membranes, dentition intact, no oropharyngeal lesions, neck supple, trachea midline, no LAD, no thyromegaly, no JVD Heart: +S1/S2, regular, no m/r/g Lungs: equal air entry bilaterally, no rales/rhonchi/wheezes Abd: +BS, soft, NT/ND, no masses/organomegaly/ascites Ext: warm, 2+ pulses in UE/LE bilaterally, no clubbing/cyanosis or edema Neuro: nonfocal, patient AA&O x 4, speech intact, no facial droop, moving all extremities on command with equal strength 5/5 Results & Data Results & Data ([facility]) Vital Signs (Past 12 Hours) Vital Signs Temp Pulse Resp BP Pulse Ox O2 Del Method 11/29/21 22:20 87 19 11/29/21 22:10 84 25 H 11/29/21 22:00 84 24 11/29/21 22:00 126/77 11/29/21 21:50 83 27 H 11/29/21 21:40 87 28 H 11/29/21 21:30 78 28 H 95 11/29/21 21:30 110/63 11/29/21 21:20 82 16 97 11/29/21 21:10 81 24 96 11/29/21 21:06 116/53 L 11/29/21 21:06 83 24 94 11/29/21 21:00 83 35 H 11/29/21 21:00 105/64 11/29/21 20:50 87 27 H 11/29/21 20:45 92 H 25 H 11/29/21 20:45 110/64 11/29/21 20:42 38.1 C H 89 20 147/84 H 94 Room Air Laboratory Results Laboratory Results WBC 7.51 K/ul (4.8-10.8) 11/29/21 20:56 RBC 4.49 M/uL (4.63-6.08) L 11/29/21 20:56 Hgb 14.5 g/dl (14.0-18.0) 11/29/21 20:56 Hct 40.2 % (40.1-51.0) 11/29/21 20:56 MCV 89.5 fL (80.0-100.0) 11/29/21 20:56 MCH 32.3 pg (25.0-34.0) 11/29/21 20:56 MCHC 36.1 g/dL (32.0-36.0) H 11/29/21 20:56 RDW Std Deviation 41.7 fL (36.4-46.3) 11/29/21 20:56 RDW Coeff of [place] 12.7 % (11.5-14.5) 11/29/21 20:56 Plt Count 150 K/uL (130-400) 11/29/21 20:56 MPV 8.9 fL (9.4-12.4) L 11/29/21 20:56 Immature Gran % (Auto) 1.1 % 11/29/21 20:56 Neut % (Auto) 87.6 % 11/29/21 20:56 Lymph % (Auto) 3.6 % 11/29/21 20:56 [place] % (Auto) 7.6 % 11/29/21 20:56 Eos % (Auto) 0.0 % 11/29/21 20:56 Baso % (Auto) 0.1 % 11/29/21 20:56 Neut # (Auto) 6.58 K/uL (1.4-6.5) H 11/29/21 20:56 Lymph # (Auto) 0.27 K/uL (1.2-3.4) L 11/29/21 20:56 [place] # (Auto) 0.57 K/uL (0.24-0.82) 11/29/21 20:56 Eos # (Auto) 0.00 K/uL (0-0.50) 11/29/21 20:56 Baso # (Auto) 0.01 K/uL (0-0.2) 11/29/21 20:56 Immature Gran # (Auto) 0.08 K/uL (0.00-0.02) H 11/29/21 20:56 PT 11.9 Seconds (9.0-12.0) 11/29/21 20:56 INR 1.1 (0.9-1.1) 11/29/21 20:56 Sodium 128 mmol/L (136-145) L 11/29/21 20:56 Potassium 3.5 mmol/L (3.5-5.1) 11/29/21 20:56 Chloride 93 mmol/L (98-107) L 11/29/21 20:56 Carbon Dioxide 25 mmol/L (21-32) 11/29/21 20:56 Anion Gap 10 (3-11) 11/29/21 20:56 BUN 5 mg/dl (6-23) L 11/29/21 20:56 Creatinine 0.43 mg/dl (0.6-1.4) L 11/29/21 20:56 Est Cr Clr Drug Dosing 138.8 ml/min 11/29/21 20:56 Est GFR ( Amer) 130.7 ml/min 11/29/21 20:56 Est GFR (Non-Af Amer) 112.8 ml/min 11/29/21 20:56 BUN/Creatinine Ratio 11.6 (10-20) 11/29/21 20:56 Glucose 109 mg/dl (70-99(Fasting)) H 11/29/21 20:56 Lactate 1.3 mmol/L (0.4-2.0) 11/29/21 20:53 Calcium 8.1 mg/dl (8.5-10.1) L 11/29/21 20:56 Magnesium 1.5 mg/dl (1.7-2.4) L 11/29/21 20:56 Total Bilirubin 1.2 mg/dl (0.2-1.0) H 11/29/21 20:56 Direct Bilirubin 0.2 mg/dl (0-0.2) 11/29/21 20:56 AST 17 U/L (13-39) 11/29/21 20:56 ALT 15 U/L (7-52) 11/29/21 20:56 Alkaline Phosphatase 66 U/L (34-104) 11/29/21 20:56 Troponin I High Sens 5.1 pg/ml (0-20) 11/29/21 20:56 Total Protein 6.1 gm/dl (6.0-8.3) 11/29/21 20:56 Albumin 3.1 gm/dl (3.4-5.0) L 11/29/21 20:56 Lipase 8 U/L (11-82) L 11/29/21 20:56 Procalcitonin 0.11 ng/ml (0-0.5) 11/29/21 20:56 Urine Color Dark Yellow 11/29/21 21:43 Urine Appearance Clear (Clear) 11/29/21 21:43 Urine pH 7.0 (4.5-7.5) 11/29/21 21:43 Ur Specific [place] 1.022 (1.000-1.030) 11/29/21 21:43 Urine Protein Trace (Negative) H 11/29/21 21:43 Urine Glucose (UA) Negative (Negative) 11/29/21 21:43 Urine Ketones 1+ (Negative) H 11/29/21 21:43 Urine Blood Negative (Negative) 11/29/21 21:43 Urine Nitrite Negative (Negative) 11/29/21 21:43 Urine Bilirubin 1+ (Negative) H 11/29/21 21:43 Urine Urobilinogen Positive (Negative) H 11/29/21 21:43 Ur Leukocyte Esterase Negative (Negative) 11/29/21 21:43 Urine WBC (Auto) 1-5 /hpf (0-5) 11/29/21 21:43 Urine RBC (Auto) 0-4 /hpf (0-4) 11/29/21 21:43 U Hyaline Cast (Auto) 1-5 /lpf (0-5) 11/29/21 21:43 U Epithel Cells (Auto) 20-30 /lpf (0-5) H 11/29/21 21:43 Urine Bacteria (Auto) Negative (Negative) 11/29/21 21:43 SARS-CoV-2 (PCR) POSITIVE (Negative) A* 11/29/21 21:00 Code Status & VTE Plan VTE Prophylaxis Plan VTE Prophylaxis will be ordered: Yes PG Care Time/CCT Total # of Minutes Spent Total Time Spent with Patient: Total time spent is greater than 50% in coordination of care (as documented) at patient's floor/unit and/or counseling patient: Coding Level of Care Code 44737 Initial Inpt Care Lvl 2 Diagnoses COVID-19 U07.1 Coronary artery disease I25.10 Coronary Disease-Associated Artery/Lesion type: [place] artery [place] vs. transplanted heart: [place] heart Associated angina: without angina Dyslipidemia E78.5 HTN (hypertension) I10 Hypertension type: essential hypertension (1) Coronary artery disease Coronary Disease-Associated Artery/Lesion type: [place] artery [place] vs. [place] spl[place] heart: [place] heart Associated angina: without angina Qualified Code(s): I25.10 - Atherosclerotic heart disease of [place] coronary artery without angina pectoris (2) HTN (hypertension) Hypertension type: essential hypertension Qualified Code(s): I10 - Essential (primary) hypertension
[2021-11-29] MEDS ORDERED: ACETAMINOPHEN 325 MG TAB PO PRN (23:59)
[2021-11-29] MEDS ORDERED: LACTATED RINGER'S 1,000 ML IV SCH (23:59)
[2021-11-29] MEDS ORDERED: ONDANSETRON INJ 2 MG/ML 2 ML VIAL IV PRN (23:59)
[2021-11-30] MEDS: MAGNESIUM SULFATE / D5W 1 GM/100 ML BAG IV SCH ×3 (00:20→04:00)
[2021-11-30 00:28] LABS: C Reactive Protein 4.93 mg/dl (0-0.5); Phosphorus 2.2 mg/dl (2.5-4.9)
[2021-11-30 00:47] LABS: Ferritin 605.1 ng/ml (8-388)
[2021-11-30 06:41] LABS: Basophils # (auto) 0.01 K/uL (0-0.2); Basophils % (auto) 0.2 %; Eosinophils # (auto) 0.03 K/uL (0-0.50); Eosinophils % (auto) 0.5 %; Hematocrit (blood only) 39.3 % (40.1-51.0); Hemoglobin 13.5 g/dl (14.0-18.0); Immature Granulocytes # (auto) 0.03 K/uL (0.00-0.02); Immature Granulocytes % (auto) 0.5 %; Lymphocytes # (auto) 0.43 K/uL (1.2-3.4); Lymphocytes % (auto) 7.9 %; Mean Corpuscular Hemoglobin 31.6 pg (25.0-34.0); Mean Corpuscular Hgb Conc 34.4 g/dL (32.0-36.0); Mean Platelet Volume 9.1 fL (9.4-12.4); Neutrophils # (auto) 4.37 K/uL (1.4-6.5); Neutrophils % (auto) 79.9 %; Platelet Count 144 K/uL (130-400); RDW Coefficient of Variation 13.1 % (11.5-14.5); RDW Standard Deviation 43.9 fL (36.4-46.3); Red Blood Count 4.27 M/uL (4.63-6.08); White Blood Count 5.47 K/ul (4.8-10.8)
[2021-11-30 07:07] LABS: Albumin Level 2.8 gm/dl (3.4-5.0); BUN Creatinine Ratio 9.3 (10-20); Bilirubin Direct 0.1 mg/dl (0-0.2); Bilirubin,Total 0.9 mg/dl (0.2-1.0); Calcium 7.9 mg/dl (8.5-10.1); Creatinine Clr Calc Pharmacy 138.8 ml/min; Est GFR (African American) 130.7 ml/min; Est GFR (Non-African American) 112.8 ml/min; Magnesium 2.5 mg/dl (1.7-2.4); Potassium 3.8 mmol/L (3.5-5.1); Total Protein 5.3 gm/dl (6.0-8.3)
--- NOTE | 2021-11-30 07:48 | XRay Report ---
XR chest 1V portable HISTORY: 76 years-old Male sepsis acute sepsis COMPARISON: Chest radiographs 05/31/2017 TECHNIQUE: Portable AP view of the chest FINDINGS: Cardiac silhouette is enlarged. Emphysema with chronic interstitial coarsening. Unchanged right hemid iaphragmatic elevation with blunting of the right costophrenic angle. Probable trace left pleural eff usion. Mild bibasilar opacities. Pleural calcifications redemonstrated, notably at the right lung bas e. Degenerative changes of the shoulders and spine. IMPRESSION: 1. Emphysema with chronic interstitial coarsening. 2. Trace left pleural effusion with mild nonspecific left basilar densities. 3. Chronic findings of the right lung base are stable from prior. ACT 112: Negative or not required by law. The above report was generated using voice recognition software. It may contain grammatical, syntax o r spelling errors. Electronically signed by: George Shields M.D. 11/30/2021 7:47 AM
[2021-11-30] MEDS: ASPIRIN 81 MG CHEW PO SCH (08:30)
[2021-11-30] MEDS: ATENOLOL 50 MG TABLET PO SCH (08:31)
[2021-11-30] MEDS ORDERED: ENOXAPARIN INJ 40 MG/0.4 ML SYR SQ SCH (09:00)
--- NOTE | 2021-11-30 09:24 | Electrocardiogram Report ---
Test Reason : Blood Pressure : / mmHG Vent. Rate : 095 BPM Atrial Rate : 095 BPM P-R Int : 158 ms QRS Dur : 072 ms QT Int : 356 ms P-R-T Axes : 049 009 090 degrees QTc Int : 447 ms Poor data quality, interpretation may be adversely affected Normal sinus rhythm Low voltage QRS Nonspecific ST abnormality Abnormal ECG When compared with ECG of 09-APR-2019 21:16, Vent. rate has increased BY 41 BPM Confirmed by Ambrose Nino ([id number]) on 11/30/2021 9:24:17 AM Referred By: Richard Bonilla Confirmed By:Ambrose Nino
[2021-11-30] MEDS ORDERED: REMDESIVIR 200 MG in SODIUM CHLORIDE 0.9% 210 ML IV STA (18:01)
[2021-11-30] MEDS: dexAMETHasone 6 MG in SYRINGE 0 ML IV SCH (18:32)
--- NOTE | 2021-11-30 18:49 | Hospitalist Progress Note ---
Date of Service November 30, 2021 Assessment & Plan (1) COVID-19: Plan: 76yo male presenting with weakness, confusion and poor oral intake. Patient found to be POSITIVE for Covid-19 infection. He is vaccinated x 2 + booster. No prior history of Covid. No known exposure. He is febrile on arrival With productive cough Pulse ox down to 93% today CRP mildly elevated at 4.9 Chest x-ray with some chronic appearing changes but no definite pneumonia -Start dexamethasone 6 mg daily x10-day course -Start Remdesivir x5-day course -Add flutter valve and incentive spirometry -Maintain isolation precautions -Tylenol and Zofran PRN -Has a history of DVT and was on Xarelto in the past, currently off Xarelto- favor Xarelto 10 mg daily for DVT prophylaxis for the next 30 days rather than using Lovenox in the hospital-change to Xarelto now -Follow CBC, CMP, CRP in the morning -Supplemental O2 as needed keep pulse ox greater than 90% (2) Encephalopathy acute: Plan: Secondary to COVID-19, hyponatremia Seems to be much improved today with improvement in hyponatremia Follow, supportive care (3) Acute hyponatremia: Plan: Sodium 128 on arrival Now improved 134 after multiple liters of crystalloid isotonic fluids on admission, hence likely secondary to dehydration/hypovolemia No further fluids needed He is eating and drinking -Follow BMP (4) Hypomagnesemia: Plan: Replaced on admission and now resolved (5) Coronary artery disease: Plan: Patient with stable CAD s/p PCI in the right coronary artery without stent placement in 1999. Patient denies chest pain. ECG here is with normal sinus rhythm, nonspecific ST abnormality with some ST subtle downsloping depressions in anterior leads, not significantly changed from previous. Troponin normal at 5 on admission -Continue ASA 81mg po daily -Continue Simvastatin 40mg po daily -Continue Atenolol 50mg po in the a.m. and 25 mg in the p.m. (6) Dyslipidemia: Plan: Chronic. -Continue Simvastatin 40mg po daily (7) HTN (hypertension): Plan: Blood pressure stable -Continue Atenolol -Monitor (8) Impaired fasting glucose: Plan: With a history of such, no hemoglobin A1c in several years Check hemoglobin A1c in the morning Watch for hyperglycemia now that he is on corticosteroids If fasting glucose in the morning is elevated, would institute NovoLog sliding scale and Accu-Cheks (9) Hx of deep venous thrombosis: Plan: With a history of DVT in 2017 in the setting of having prostate cancer Was on Xarelto it appears for several years, but no longer is on Xarelto -Start Xarelto 10 mg daily as prophylaxis especially in setting hospitalization [id number] recommend continuing this for 30 days Plan Disposition-continued stay on medical/surgical floor, COVID isolation precautions Admission and Anticipated Discharge Date Admission Date: November 29, 2021 Subjective Pt has a productive cough of yellow mucus, no hemoptysis. Feels a little bit better. Has no other complaints. No headache, no lightheadedness, is walking to the bathroom and back. Review of Systems Review of Systems: All systems reviewed & are unremarkable except as noted in HPI & below Physical Exam Constitutional: WD/WN, vitals as above Eyes: + anicteric sclerae ENMT: external ear and nose normal, oropharynx normal Neck: trachea midline, no thyromegaly Respiratory: normal respiratory effort and + cough; no labored breathing Auscultation: + rhonchi (Bilateral lower lung stock); no crackles and no wheezes Cardiovascular: RRR, no murmur, no edema Chest (Breasts): Chest: normal inspection of chest Gastrointestinal (Abdomen): normal bowel sounds, soft, nontender, no hepatosplenomegaly Musculoskeletal: Extremities: extremities normal to inspection; no cyanosis and no clubbing Skin: no rashes, warm and dry Neurologic: moves all extremities and awake; no focal motor deficits Psychiatric: A+Ox3, euthymic affect Lymphatic: no lymphedema Results & Data Results & Data ([facility]) Vital Signs (Past 12 Hours) Vital Signs Temp Pulse Resp BP BP Pulse Ox O2 Del Method 11/30/21 17:12 Room Air 11/30/21 17:07 36.9 C 73 20 130/76 93 Room Air 11/30/21 08:14 Room Air 11/30/21 08:14 36.5 C 82 24 157/79 H 95 Room Air Laboratory Results 11/30/21 11/30/21 11/29/21 Range/Units 06:16 06:16 21:43 WBC 5.47 (4.8-10.8) K/ul RBC 4.27 L (4.63-6.08) M/uL Hgb 13.5 L (14.0-18.0) g/dl Hct 39.3 L (40.1-51.0) % MCV 92.0 (80.0-100.0) fL MCH 31.6 (25.0-34.0) pg MCHC 34.4 (32.0-36.0) g/dL RDW Std Deviation 43.9 (36.4-46.3) fL RDW Coeff of Ramirez 13.1 (11.5-14.5) % Plt Count 144 (130-400) K/uL MPV 9.1 L (9.4-12.4) fL Immature Gran % (Auto) 0.5 % Neut % (Auto) 79.9 % Lymph % (Auto) 7.9 % [place] % (Auto) 11.0 % Eos % (Auto) 0.5 % Baso % (Auto) 0.2 % Neut # (Auto) 4.37 (1.4-6.5) K/uL Lymph # (Auto) 0.43 L (1.2-3.4) K/uL [place] # (Auto) 0.60 (0.24-0.82) K/uL Eos # (Auto) 0.03 (0-0.50) K/uL Baso # (Auto) 0.01 (0-0.2) K/uL Immature Gran # (Auto) 0.03 H (0.00-0.02) K/uL PT (9.0-12.0) Seconds INR (0.9-1.1) Sodium 134 L (136-145) mmol/L Potassium 3.8 (3.5-5.1) mmol/L Chloride 101 (98-107) mmol/L Carbon Dioxide 30 (21-32) mmol/L Anion Gap 3 (3-11) BUN 4 L (6-23) mg/dl Creatinine 0.43 L (0.6-1.4) mg/dl Est Cr Clr Drug Dosing 138.8 ml/min Est GFR ( Amer) 130.7 ml/min Est GFR (Non-Af Amer) 112.8 ml/min BUN/Creatinine Ratio 9.3 L (10-20) Glucose 101 H (70-99(Fasting)) mg/dl Lactate (0.4-2.0) mmol/L Calcium 7.9 L (8.5-10.1) mg/dl Phosphorus (2.5-4.9) mg/dl Magnesium 2.5 H (1.7-2.4) mg/dl Ferritin (8-388) ng/ml Total Bilirubin 0.9 (0.2-1.0) mg/dl Direct Bilirubin 0.1 (0-0.2) mg/dl AST 15 (13-39) U/L ALT 14 (7-52) U/L Alkaline Phosphatase 57 (34-104) U/L Lactate Dehydrogenase (86-244) U/L Troponin I High Sens (0-20) pg/ml C-Reactive Protein (0-0.5) mg/dl Total Protein 5.3 L (6.0-8.3) gm/dl Albumin 2.8 L (3.4-5.0) gm/dl Lipase (11-82) U/L Procalcitonin (0-0.5) ng/ml Urine Color Dark Yellow Urine Appearance Clear (Clear) Urine pH 7.0 (4.5-7.5) Ur Specific [place] 1.022 (1.000-1.030) Urine Protein Trace H (Negative) Urine Glucose (UA) Negative (Negative) Urine Ketones 1+ H (Negative) Urine Blood Negative (Negative) Urine Nitrite Negative (Negative) Urine Bilirubin 1+ H (Negative) Urine Urobilinogen Positive H (Negative) Ur Leukocyte Esterase Negative (Negative) Urine WBC (Auto) 1-5 (0-5) /hpf Urine RBC (Auto) 0-4 (0-4) /hpf U Hyaline Cast (Auto) 1-5 (0-5) /lpf U Epithel Cells (Auto) 20-30 H (0-5) /lpf Urine Bacteria (Auto) Negative (Negative) SARS-CoV-2 (PCR) (Negative) 11/29/21 11/29/21 11/29/21 Range/Units 21:00 20:56 20:56 WBC (4.8-10.8) K/ul RBC (4.63-6.08) M/uL Hgb (14.0-18.0) g/dl Hct (40.1-51.0) % MCV (80.0-100.0) fL MCH (25.0-34.0) pg MCHC (32.0-36.0) g/dL RDW Std Deviation (36.4-46.3) fL RDW Coeff of Ramirez (11.5-14.5) % Plt Count (130-400) K/uL MPV (9.4-12.4) fL Immature Gran % (Auto) % Neut % (Auto) % Lymph % (Auto) % [place] % (Auto) % Eos % (Auto) % Baso % (Auto) % Neut # (Auto) (1.4-6.5) K/uL Lymph # (Auto) (1.2-3.4) K/uL [place] # (Auto) (0.24-0.82) K/uL Eos # (Auto) (0-0.50) K/uL Baso # (Auto) (0-0.2) K/uL Immature Gran # (Auto) (0.00-0.02) K/uL PT (9.0-12.0) Seconds INR (0.9-1.1) Sodium (136-145) mmol/L Potassium (3.5-5.1) mmol/L Chloride (98-107) mmol/L Carbon Dioxide (21-32) mmol/L Anion Gap (3-11) BUN (6-23) mg/dl Creatinine (0.6-1.4) mg/dl Est Cr Clr Drug Dosing ml/min Est GFR ( Amer) ml/min Est GFR (Non-Af Amer) ml/min BUN/Creatinine Ratio (10-20) Glucose (70-99(Fasting)) mg/dl Lactate (0.4-2.0) mmol/L Calcium (8.5-10.1) mg/dl Phosphorus (2.5-4.9) mg/dl Magnesium (1.7-2.4) mg/dl Ferritin (8-388) ng/ml Total Bilirubin (0.2-1.0) mg/dl Direct Bilirubin (0-0.2) mg/dl AST (13-39) U/L ALT (7-52) U/L Alkaline Phosphatase (34-104) U/L Lactate Dehydrogenase 156 (86-244) U/L Troponin I High Sens (0-20) pg/ml C-Reactive Protein (0-0.5) mg/dl Total Protein (6.0-8.3) gm/dl Albumin (3.4-5.0) gm/dl Lipase (11-82) U/L Procalcitonin 0.11 (0-0.5) ng/ml Urine Color Urine Appearance (Clear) Urine pH (4.5-7.5) Ur Specific [place] (1.000-1.030) Urine Protein (Negative) Urine Glucose (UA) (Negative) Urine Ketones (Negative) Urine Blood (Negative) Urine Nitrite (Negative) Urine Bilirubin (Negative) Urine Urobilinogen (Negative) Ur Leukocyte Esterase (Negative) Urine WBC (Auto) (0-5) /hpf Urine RBC (Auto) (0-4) /hpf U Hyaline Cast (Auto) (0-5) /lpf U Epithel Cells (Auto) (0-5) /lpf Urine Bacteria (Auto) (Negative) SARS-CoV-2 (PCR) POSITIVE A* (Negative) 11/29/21 11/29/21 11/29/21 Range/Units 20:56 20:56 20:56 WBC 7.51 (4.8-10.8) K/ul RBC 4.49 L (4.63-6.08) M/uL Hgb 14.5 (14.0-18.0) g/dl Hct 40.2 (40.1-51.0) % MCV 89.5 (80.0-100.0) fL MCH 32.3 (25.0-34.0) pg MCHC 36.1 H (32.0-36.0) g/dL RDW Std Deviation 41.7 (36.4-46.3) fL RDW Coeff of Ramirez 12.7 (11.5-14.5) % Plt Count 150 (130-400) K/uL MPV 8.9 L (9.4-12.4) fL Immature Gran % (Auto) 1.1 % Neut % (Auto) 87.6 % Lymph % (Auto) 3.6 % [place] % (Auto) 7.6 % Eos % (Auto) 0.0 % Baso % (Auto) 0.1 % Neut # (Auto) 6.58 H (1.4-6.5) K/uL Lymph # (Auto) 0.27 L (1.2-3.4) K/uL [place] # (Auto) 0.57 (0.24-0.82) K/uL Eos # (Auto) 0.00 (0-0.50) K/uL Baso # (Auto) 0.01 (0-0.2) K/uL Immature Gran # (Auto) 0.08 H (0.00-0.02) K/uL PT 11.9 (9.0-12.0) Seconds INR 1.1 (0.9-1.1) Sodium 128 L (136-145) mmol/L Potassium 3.5 (3.5-5.1) mmol/L Chloride 93 L (98-107) mmol/L Carbon Dioxide 25 (21-32) mmol/L Anion Gap 10 (3-11) BUN 5 L (6-23) mg/dl Creatinine 0.43 L (0.6-1.4) mg/dl Est Cr Clr Drug Dosing 138.8 ml/min Est GFR ( Amer) 130.7 ml/min Est GFR (Non-Af Amer) 112.8 ml/min BUN/Creatinine Ratio 11.6 (10-20) Glucose 109 H (70-99(Fasting)) mg/dl Lactate (0.4-2.0) mmol/L Calcium 8.1 L (8.5-10.1) mg/dl Phosphorus 2.2 L (2.5-4.9) mg/dl Magnesium 1.5 L (1.7-2.4) mg/dl Ferritin 605.1 H (8-388) ng/ml Total Bilirubin 1.2 H (0.2-1.0) mg/dl Direct Bilirubin 0.2 (0-0.2) mg/dl AST 17 (13-39) U/L ALT 15 (7-52) U/L Alkaline Phosphatase 66 (34-104) U/L Lactate Dehydrogenase (86-244) U/L Troponin I High Sens 5.1 (0-20) pg/ml C-Reactive Protein 4.93 H (0-0.5) mg/dl Total Protein 6.1 (6.0-8.3) gm/dl Albumin 3.1 L (3.4-5.0) gm/dl Lipase 8 L (11-82) U/L Procalcitonin (0-0.5) ng/ml Urine Color Urine Appearance (Clear) Urine pH (4.5-7.5) Ur Specific [place] (1.000-1.030) Urine Protein (Negative) Urine Glucose (UA) (Negative) Urine Ketones (Negative) Urine Blood (Negative) Urine Nitrite (Negative) Urine Bilirubin (Negative) Urine Urobilinogen (Negative) Ur Leukocyte Esterase (Negative) Urine WBC (Auto) (0-5) /hpf Urine RBC (Auto) (0-4) /hpf U Hyaline Cast (Auto) (0-5) /lpf U Epithel Cells (Auto) (0-5) /lpf Urine Bacteria (Auto) (Negative) SARS-CoV-2 (PCR) (Negative) 11/29/21 Range/Units 20:53 WBC (4.8-10.8) K/ul RBC (4.63-6.08) M/uL Hgb (14.0-18.0) g/dl Hct (40.1-51.0) % MCV (80.0-100.0) fL MCH (25.0-34.0) pg MCHC (32.0-36.0) g/dL RDW Std Deviation (36.4-46.3) fL RDW Coeff of Ramirez (11.5-14.5) % Plt Count (130-400) K/uL MPV (9.4-12.4) fL Immature Gran % (Auto) % Neut % (Auto) % Lymph % (Auto) % [place] % (Auto) % Eos % (Auto) % Baso % (Auto) % Neut # (Auto) (1.4-6.5) K/uL Lymph # (Auto) (1.2-3.4) K/uL [place] # (Auto) (0.24-0.82) K/uL Eos # (Auto) (0-0.50) K/uL Baso # (Auto) (0-0.2) K/uL Immature Gran # (Auto) (0.00-0.02) K/uL PT (9.0-12.0) Seconds INR (0.9-1.1) Sodium (136-145) mmol/L Potassium (3.5-5.1) mmol/L Chloride (98-107) mmol/L Carbon Dioxide (21-32) mmol/L Anion Gap (3-11) BUN (6-23) mg/dl Creatinine (0.6-1.4) mg/dl Est Cr Clr Drug Dosing ml/min Est GFR ( Amer) ml/min Est GFR (Non-Af Amer) ml/min BUN/Creatinine Ratio (10-20) Glucose (70-99(Fasting)) mg/dl Lactate 1.3 (0.4-2.0) mmol/L Calcium (8.5-10.1) mg/dl Phosphorus (2.5-4.9) mg/dl Magnesium (1.7-2.4) mg/dl Ferritin (8-388) ng/ml Total Bilirubin (0.2-1.0) mg/dl Direct Bilirubin (0-0.2) mg/dl AST (13-39) U/L ALT (7-52) U/L Alkaline Phosphatase (34-104) U/L Lactate Dehydrogenase (86-244) U/L Troponin I High Sens (0-20) pg/ml C-Reactive Protein (0-0.5) mg/dl Total Protein (6.0-8.3) gm/dl Albumin (3.4-5.0) gm/dl Lipase (11-82) U/L Procalcitonin (0-0.5) ng/ml Urine Color Urine Appearance (Clear) Urine pH (4.5-7.5) Ur Specific [place] (1.000-1.030) Urine Protein (Negative) Urine Glucose (UA) (Negative) Urine Ketones (Negative) Urine Blood (Negative) Urine Nitrite (Negative) Urine Bilirubin (Negative) Urine Urobilinogen (Negative) Ur Leukocyte Esterase (Negative) Urine WBC (Auto) (0-5) /hpf Urine RBC (Auto) (0-4) /hpf U Hyaline Cast (Auto) (0-5) /lpf U Epithel Cells (Auto) (0-5) /lpf Urine Bacteria (Auto) (Negative) SARS-CoV-2 (PCR) (Negative) PG Care Time/CCT Total # of Minutes Spent Total Time Spent with Patient: Total time spent is greater than 50% in coordination of care (as documented) at patient's floor/unit and/or counseling patient: Coding Level of Care Code 93441 Subseq Hosp Care Lvl 3 Diagnoses COVID-19 U07.1 Encephalopathy acute G93.40 Acute hyponatremia E87.1 Hypomagnesemia E83.42 Coronary artery disease I25.10 Associated angina: without angina Coronary Disease-Associated Artery/Lesion type: [place] artery [place] vs. transplanted heart: [place] heart Dyslipidemia E78.5 HTN (hypertension) I10 Hypertension type: essential hypertension Impaired fasting glucose R73.01 Hx of deep venous thrombosis Z86.718 (1) Coronary artery disease Associated angina: without angina Coronary Disease-Associated Artery/Lesion type: [place] artery [place] vs. transplanted heart: [place] heart Qualified Code(s): I25.10 - Atherosclerotic heart disease of [place] coronary artery without angina pectoris (2) HTN (hypertension) Hypertension type: essential hypertension Qualified Code(s): I10 - Essential (primary) hypertension
[2021-11-30] MEDS ORDERED: ATENOLOL 25 MG TABLET PO SCH (21:00)
[2021-11-30] MEDS: SIMVASTATIN 40 MG TAB PO SCH (21:44)
[2021-12-01] MEDS: dexAMETHasone 6 MG in SYRINGE 0 ML IV SCH (08:55)
[2021-12-01] MEDS: RIVAROXABAN 10 MG TABLET PO SCH (08:55)
[2021-12-01] MEDS: ATENOLOL 50 MG TABLET PO SCH (08:55)
[2021-12-01] MEDS: ASPIRIN 81 MG CHEW PO SCH (08:58)
[2021-12-01 10:52] LABS: Hematocrit (blood only) 37.8 % (40.1-51.0); Mean Corpuscular Hemoglobin 31.8 pg (25.0-34.0); Mean Corpuscular Hgb Conc 34.4 g/dL (32.0-36.0); Mean Corpuscular Volume 92.4 fL (80.0-100.0); Mean Platelet Volume 9.5 fL (9.4-12.4); Platelet Count 143 K/uL (130-400); RDW Coefficient of Variation 13.2 % (11.5-14.5); RDW Standard Deviation 44.7 fL (36.4-46.3); Red Blood Count 4.09 M/uL (4.63-6.08); White Blood Count 6.19 K/ul (4.8-10.8)
[2021-12-01 11:13] LABS: Albumin Level 2.8 gm/dl (3.4-5.0); BUN Creatinine Ratio 16.7 (10-20); Bilirubin,Total 0.5 mg/dl (0.2-1.0); C Reactive Protein 6.51 mg/dl (0-0.5); Calcium 8.3 mg/dl (8.5-10.1); Creatinine Clr Calc Pharmacy 142.1 ml/min; Est GFR (Non-African American) 113.9 ml/min; Globulin 2.8 gm/dl (2.5-4.0); Magnesium 1.9 mg/dl (1.7-2.4); Potassium 3.8 mmol/L (3.5-5.1); Total Protein 5.6 gm/dl (6.0-8.3)
[2021-12-01 11:14] LABS: Basophils # (auto) 0.01 K/uL (0-0.2); Basophils % (auto) 0.2 %; Immature Granulocytes # (auto) 0.02 K/uL (0.00-0.02); Immature Granulocytes % (auto) 0.3 %; Lymphocytes # (auto) 0.32 K/uL (1.2-3.4); Lymphocytes % (auto) 5.2 %; Monocytes # (auto) 0.08 K/uL (0.24-0.82); Monocytes % (auto) 1.3 %; Neutrophils # (auto) 5.76 K/uL (1.4-6.5)
[2021-12-01 16:14] LABS: Estimated Average Glucose 88 mg/dl; Hemoglobin A1C 4.7 % (4.5-5.6)
[2021-12-01] MEDS: REMDESIVIR 100 MG in SODIUM CHLORIDE 0.9% 230 ML IV SCH (20:18)
[2021-12-01] MEDS: SIMVASTATIN 40 MG TAB PO SCH (20:21)
--- NOTE | 2021-12-01 20:33 | Hospitalist Progress Note ---
Date of Service December 01, 2021 Assessment & Plan (1) Pneumonia due to COVID-19 virus: Plan: left basilar pneumonia. clinically stable/improving. day #2 of dexamethasone. day #2 of Remdesivir. cont both. pulmonary toilet. side positioning discussed. xarelto for DVT proph. check labs including ast/alt in am. (2) Encephalopathy acute: Plan: ACUTE METABOLIC ENCEPHALOPATHY. Secondary to COVID-19 and hyponatremia - mentation improved today. Na level improved. Cont supportive care. (3) Acute hyponatremia: Plan: Sodium 128 on arrival, 2nd to volume depletion. Now improved to 134 s/p IV fluids. repeat BMP am. (4) Hypomagnesemia: Plan: Replaced Resolved (5) Coronary artery disease: Plan: s/p PCI in the right coronary artery without stent placement in 1999. No ischemic symptoms at this time. Continue ASA 81mg po daily. Continue Simvastatin 40mg po daily. Continue Atenolol but hold evening dose and reduce the AM dose to 25mg due to bradycardia. Follow response. (6) Dyslipidemia: Plan: Continue Simvastatin 40mg po daily AST/ALT remain stable on Remdesivir (7) HTN (hypertension): Plan: Stable, controlled Atenolol as above (8) Impaired fasting glucose: Plan: h/o. a1c today 4.7%. pre-DM resolved. BSGs - even on steroids - acceptable. (9) Hx of deep venous thrombosis: Plan: DVT in 2017 - in the setting of having prostate cancer. Took Xarelto for several years then came off such. Xarelto 10mg daily while here, then give for 30 days post d/c due to high risk of VTE during his recovery. Plan updated by phone this evening Admission and Anticipated Discharge Date Admission Date: November 29, 2021 Subjective feeling a bit better appetite improving mild cough but denies dyspnea denies myalgias, headache denies chest pain denies N/V/D Review of Systems Review of Systems: gen - no fevers or chills cv - no orthopnea pulm - no OROZCO GI - no abd pain psych - feels that his mentation has improved Physical Exam Physical Exam: gen - looks good, NAD, tired-appearing mouth - MMM neck - no JVD heart - RRR, s1 s2, no murmur lungs - L basilar rales, CTA b/l otherwise, no wheeze abd - soft NT ND BS+ ext - no edema, pulses 2+ b/l psych - a/o x 3 Results & Data Results & Data ([facility]) Vital Signs (Past 12 Hours) Vital Signs Temp Pulse Resp BP Pulse Ox O2 Del Method 12/01/21 14:08 36.4 C L 63 16 117/71 94 Room Air 12/01/21 08:40 Room Air 12/01/21 08:52 36.6 C 55 L 16 124/60 94 Room Air Laboratory Results Laboratory Results - last 24 hr 12/01/21 12/01/21 12/01/21 10:19 10:19 10:19 WBC 6.19 RBC 4.09 L Hgb 13.0 L Hct 37.8 L MCV 92.4 MCH 31.8 MCHC 34.4 RDW Std Deviation 44.7 RDW Coeff of Ramirez 13.2 Plt Count 143 MPV 9.5 Immature Gran % (Auto) 0.3 Neut % (Auto) 93.0 Lymph % (Auto) 5.2 [place] % (Auto) 1.3 Eos % (Auto) 0.0 Baso % (Auto) 0.2 Neut # (Auto) 5.76 Lymph # (Auto) 0.32 L [place] # (Auto) 0.08 L Eos # (Auto) 0.00 Baso # (Auto) 0.01 Immature Gran # (Auto) 0.02 Sodium 134 L Potassium 3.8 Chloride 99 Carbon Dioxide 30 Anion Gap 5 BUN 7 Creatinine 0.42 L Est Cr Clr Drug Dosing 142.1 Est GFR ( Amer) 132.0 Est GFR (Non-Af Amer) 113.9 BUN/Creatinine Ratio 16.7 Glucose 197 H POC Glucose Estimat Average Glucose 88 Hemoglobin A1c 4.7 Calcium 8.3 L Magnesium 1.9 Total Bilirubin 0.5 AST 12 L ALT 11 Alkaline Phosphatase 52 C-Reactive Protein 6.51 H Total Protein 5.6 L Albumin 2.8 L Globulin 2.8 Albumin/Globulin Ratio 1.0 12/01/21 12/01/21 17:25 19:39 WBC RBC Hgb Hct MCV MCH MCHC RDW Std Deviation RDW Coeff of Ramirez Plt Count MPV Immature Gran % (Auto) Neut % (Auto) Lymph % (Auto) [place] % (Auto) Eos % (Auto) Baso % (Auto) Neut # (Auto) Lymph # (Auto) [place] # (Auto) Eos # (Auto) Baso # (Auto) Immature Gran # (Auto) Sodium Potassium Chloride Carbon Dioxide Anion Gap BUN Creatinine Est Cr Clr Drug Dosing Est GFR ( Amer) Est GFR (Non-Af Amer) BUN/Creatinine Ratio Glucose POC Glucose 121 H 164 H Estimat Average Glucose Hemoglobin A1c Calcium Magnesium Total Bilirubin AST ALT Alkaline Phosphatase C-Reactive Protein Total Protein Albumin Globulin Albumin/Globulin Ratio PG Care Time/CCT Total # of Minutes Spent Total Time Spent with Patient: Total time spent is greater than 50% in coordination of care (as documented) at patient's floor/unit and/or counseling patient: Coding Level of Care Code 20433 Subseq Hosp Care Lvl 2 Diagnoses Pneumonia due to COVID-19 virus U07.1; J12.82 Encephalopathy acute G93.40 Acute hyponatremia E87.1 Hypomagnesemia E83.42 Coronary artery disease I25.10 Associated angina: without angina Coronary Disease-Associated Artery/Lesion type: [place] artery [place] vs. transplanted heart: [place] heart Dyslipidemia E78.5 HTN (hypertension) I10 Hypertension type: essential hypertension Impaired fasting glucose R73.01 Hx of deep venous thrombosis Z86.718 (1) Coronary artery disease Associated angina: without angina Coronary Disease-Associated Artery/Lesion type: [place] artery [place] vs. transplanted heart: [place] heart Qualified Code(s): I25.10 - Atherosclerotic heart disease of [place] coronary artery without angina pectoris (2) HTN (hypertension) Hypertension type: essential hypertension Qualified Code(s): I10 - Essential (primary) hypertension
[2021-12-02] MEDS: ATENOLOL 25 MG TABLET PO SCH (08:43)
[2021-12-02] MEDS: dexAMETHasone 6 MG in SYRINGE 0 ML IV SCH (08:44)
[2021-12-02] MEDS: RIVAROXABAN 10 MG TABLET PO SCH (08:45)
[2021-12-02] MEDS: ASPIRIN 81 MG CHEW PO SCH (09:24)
[2021-12-02 11:20] LABS: Hematocrit (blood only) 39.9 % (40.1-51.0); Hemoglobin 13.8 g/dl (14.0-18.0); Mean Corpuscular Hgb Conc 34.6 g/dL (32.0-36.0); Mean Corpuscular Volume 92.6 fL (80.0-100.0); Mean Platelet Volume 9.3 fL (9.4-12.4); Platelet Count 183 K/uL (130-400); RDW Coefficient of Variation 13.1 % (11.5-14.5); RDW Standard Deviation 45.1 fL (36.4-46.3); Red Blood Count 4.31 M/uL (4.63-6.08); White Blood Count 10.96 K/ul (4.8-10.8)
[2021-12-02 11:40] LABS: BUN Creatinine Ratio 22.2 (10-20); Calcium 8.5 mg/dl (8.5-10.1); Creatinine Clr Calc Pharmacy 132.6 ml/min; Est GFR (African American) 128.3 ml/min; Est GFR (Non-African American) 110.7 ml/min; Potassium 3.9 mmol/L (3.5-5.1)
[2021-12-02 12:06] LABS: Basophils # (auto) 0.01 K/uL (0-0.2); Basophils % (auto) 0.1 %; Immature Granulocytes # (auto) 0.07 K/uL (0.00-0.02); Immature Granulocytes % (auto) 0.6 %; Lymphocytes # (auto) 0.37 K/uL (1.2-3.4); Lymphocytes % (auto) 3.4 %; Monocytes # (auto) 0.38 K/uL (0.24-0.82); Monocytes % (auto) 3.5 %; Neutrophils # (auto) 10.13 K/uL (1.4-6.5); Neutrophils % (auto) 92.4 %
--- NOTE | 2021-12-02 21:02 | Hospitalist Progress Note ---
Date of Service December 02, 2021 Assessment & Plan (1) Pneumonia due to COVID-19 virus: Plan: left basilar pneumonia. continues to improve. day #3 of dexamethasone. day #3 of Remdesivir. cont both. pulmonary toilet. xarelto for DVT proph. check labs again in am including ast/alt due to Remdesivir usage. (2) Encephalopathy acute: Plan: ACUTE METABOLIC ENCEPHALOPATHY. Secondary to COVID-19 and hyponatremia - resolved. (3) Acute hyponatremia: Plan: Sodium 128 on arrival, 2nd to volume depletion. resolved - 137 today (4) Hypomagnesemia: Plan: Replaced Resolved (5) Coronary artery disease: Plan: s/p PCI in the right coronary artery without stent placement in 1999. No ischemic symptoms at this time. Continue ASA 81mg po daily. Continue Simvastatin 40mg po daily. Continue Atenolol but hold evening dose and reduce the AM dose to 25mg due to bradycardia. HRs / BPs stable. (6) Dyslipidemia: Plan: Continue Simvastatin 40mg po daily AST/ALT remain stable on Remdesivir (7) HTN (hypertension): Plan: Stable, controlled Atenolol as above (8) Impaired fasting glucose: Plan: h/o. a1c today 4.7%. pre-DM resolved. BSGs - even on steroids - acceptable. (9) Hx of deep venous thrombosis: Plan: DVT in 2017 - in the setting of having prostate cancer. Took Xarelto for several years then came off such. Xarelto 10mg daily while here, then give for 30 days post d/c due to high risk of VTE during his recovery. Plan updated by phone this evening anticipate d/c in am tomorrow Admission and Anticipated Discharge Date Admission Date: November 29, 2021 Subjective feeling better good night overall mild cough only no dyspnea eating is improved no fevers ambulating better Review of Systems Review of Systems: gen - no fevers or chills; energy is improving cv - no chest pain or orthopnea pulm - no dyspnea on exertion neuropsych - doesn't feel confused Physical Exam Physical Exam: gen - looks very good today; NAD mouth - MMM neck - no JVD heart - RRR, s1 s2, no murmur lungs - L basilar rales - fine, dry sounding; CTA b/l otherwise, no wheeze abd - soft NT ND BS+ ext - no edema, pulses 2+ b/l psych - a/o x 3 Results & Data Results & Data ([facility]) Vital Signs (Past 12 Hours) Vital Signs Temp Pulse Resp BP Pulse Ox O2 Del Method 12/02/21 15:53 36.6 C 60 18 116/72 94 Room Air Laboratory Results Laboratory Results - last 24 hr 12/02/21 12/02/21 12/02/21 08:36 10:57 10:57 WBC 10.96 H RBC 4.31 L Hgb 13.8 L Hct 39.9 L MCV 92.6 MCH 32.0 MCHC 34.6 RDW Std Deviation 45.1 RDW Coeff of Ramirez 13.1 Plt Count 183 MPV 9.3 L Immature Gran % (Auto) 0.6 Neut % (Auto) 92.4 Lymph % (Auto) 3.4 [place] % (Auto) 3.5 Eos % (Auto) 0.0 Baso % (Auto) 0.1 Neut # (Auto) 10.13 H Lymph # (Auto) 0.37 L [place] # (Auto) 0.38 Eos # (Auto) 0.00 Baso # (Auto) 0.01 Immature Gran # (Auto) 0.07 H Sodium 137 Potassium 3.9 Chloride 99 Carbon Dioxide 33 H Anion Gap 5 BUN 10 Creatinine 0.45 L Est Cr Clr Drug Dosing 132.6 Est GFR ( Amer) 128.3 Est GFR (Non-Af Amer) 110.7 BUN/Creatinine Ratio 22.2 H Glucose 124 H POC Glucose 99 Calcium 8.5 AST 16 ALT 14 12/02/21 12/02/21 12:24 17:30 WBC RBC Hgb Hct MCV MCH MCHC RDW Std Deviation RDW Coeff of Ramirez Plt Count MPV Immature Gran % (Auto) Neut % (Auto) Lymph % (Auto) [place] % (Auto) Eos % (Auto) Baso % (Auto) Neut # (Auto) Lymph # (Auto) [place] # (Auto) Eos # (Auto) Baso # (Auto) Immature Gran # (Auto) Sodium Potassium Chloride Carbon Dioxide Anion Gap BUN Creatinine Est Cr Clr Drug Dosing Est GFR ( Amer) Est GFR (Non-Af Amer) BUN/Creatinine Ratio Glucose POC Glucose 143 H 114 H Calcium AST ALT PG Care Time/CCT Total # of Minutes Spent Total Time Spent with Patient: Total time spent is greater than 50% in coordination of care (as documented) at patient's floor/unit and/or counseling patient: Coding Level of Care Code 25921 Subseq Hosp Care Lvl 2 Diagnoses Pneumonia due to COVID-19 virus U07.1; J12.82 Encephalopathy acute G93.40 Acute hyponatremia E87.1 Hypomagnesemia E83.42 Coronary artery disease I25.10 Associated angina: without angina Coronary Disease-Associated Artery/Lesion type: [place] artery [place] vs. transplanted heart: [place] heart Dyslipidemia E78.5 HTN (hypertension) I10 Hypertension type: essential hypertension Impaired fasting glucose R73.01 Hx of deep venous thrombosis Z86.718 (1) Coronary artery disease Associated angina: without angina Coronary Disease-Associated Artery/Lesion type: [place] artery [place] vs. transplanted heart: [place] heart Qualified Code(s): I25.10 - Atherosclerotic heart disease of [place] coronary artery without angina pectoris (2) HTN (hypertension) Hypertension type: essential hypertension Qualified Code(s): I10 - Essential (primary) hypertension
[2021-12-02] MEDS: SIMVASTATIN 40 MG TAB PO SCH (21:46)
[2021-12-02] MEDS: REMDESIVIR 100 MG in SODIUM CHLORIDE 0.9% 230 ML IV SCH (21:46)
[2021-12-03] MEDS: ATENOLOL 25 MG TABLET PO SCH (08:45)
[2021-12-03] MEDS: RIVAROXABAN 10 MG TABLET PO SCH (08:45)
[2021-12-03] MEDS: dexAMETHasone 6 MG in SYRINGE 0 ML IV SCH (08:48)
[2021-12-03] MEDS: ASPIRIN 81 MG CHEW PO SCH (08:49)
[2021-12-03 08:56] LABS: Creatinine Clr Calc Pharmacy 132.6 ml/min; Est GFR (African American) 128.3 ml/min; Est GFR (Non-African American) 110.7 ml/min
--- NOTE | 2021-12-03 14:14 | Discharge Summary ---
Date of Service date of admission - November 29, 2021 date of discharge - December 03, 2021 Admission HPI Per Admitting Provider Taye Fernando is a pleasant 76yo male with history of HNT, HLP and COPD presenting with Covid-19 infection and weakness. Patient reports he has overall been doing well. His family at bedside states that he has been weak and slightly confused over the last several days. He slipped from his chair today and was unable to get back up. He has not been eating well or drinking. Also with fever, slight cough. He denies chest pain, palpitations, nausea, vomiting, diarrhea or constipation. No loss of taste or smell. Patient is vaccinated against Covid-19 x 2 + booster No known Covid-19 contacts Febrile in the ER, HD stable. Confused and weak upon arrival which improved with administration of IV fluids. SpO2 has been adequate on room air. ER Course: NSS x 2L Principal Diagnosis COVID-19 Pneumonia Discharge Exam gen - looks good, NAD mouth - MMM neck - no JVD heart - RRR, s1 s2, no murmur lungs - L basilar rales, CTA b/l otherwise, no wheeze abd - soft NT ND BS+ ext - no edema, pulses 2+ b/l psych - a/o x 3 Discharge Data Allergies Allergy/AdvReac Type Severity Reaction Status Date / Time No Known Allergies Allergy Verified 09/28/21 12:55 Consultations PT OT Procedures Performed 2-step O2 ambulatory test - no need for home O2 Ordered Studies Chest X-Ray 11/29/21 20:54 XR chest 1V portable HISTORY: 76 years-old Male sepsis acute sepsis COMPARISON: Chest radiographs 05/31/2017 TECHNIQUE: Portable AP view of the chest FINDINGS: Cardiac silhouette is enlarged. Emphysema with chronic interstitial coarsening. Unchanged right hemidiaphragmatic elevation with blunting of the right costophrenic angle. Probable trace left pleural effusion. Mild bibasilar opacities. Pleural calcifications redemonstrated, notably at the right lung base. Degenerative changes of the shoulders and spine. IMPRESSION: 1. Emphysema with chronic interstitial coarsening. 2. Trace left pleural effusion with mild nonspecific left basilar densities. 3. Chronic findings of the right lung base are stable from prior. ACT 112: Negative or not required by law. The above report was generated using voice recognition software. It may contain grammatical, syntax or spelling errors. Electronically signed by: George Shields M.D. 11/30/2021 7:47 AM Hospital Course (1) Pneumonia due to COVID-19 virus: Left basilar pneumonia. Patient was clinically stable and improved during his stay. He was treated with IV dexamethasone and IV Remdesivir along with supportive care while here. Xarelto was used for DVT proph. He never had an O2 requirement but O2 sats, at times, were low 90s in room air. At time of discharge he passed an ambulatory oxygen 2-step test. He will complete 7 days of dexamethasone 6mg daily at home. He will remain on low-dose Xarelto 10mg daily x 30 days post-discharge for DVT prophylaxis. He passed his PT/OT evaluations and was cleared for home with his family. (2) Encephalopathy acute: ACUTE METABOLIC ENCEPHALOPATHY. Secondary to COVID-19 and hyponatremia - mentation improved and normalized while here. (3) Acute hyponatremia: Sodium 128 on arrival, 2nd to volume depletion. Improved to 137 prior to discharge. (4) Hypomagnesemia: Replaced Resolved (5) Coronary artery disease: s/p PCI in the right coronary artery without stent placement in 1999. No ischemic symptoms during his illness. Continue ASA 81mg po daily. Continue Simvastatin 40mg po daily. Continue Atenolol but stop his evening dose and reduce the AM dose to 25mg due to bradycardia. (6) Dyslipidemia: Continue Simvastatin 40mg po daily. AST/ALT remained stable while on Remdesivir treatment. (7) HTN (hypertension): Stable, controlled Atenolol dosing as above (8) Impaired fasting glucose: h/o. HbA1C 4.7% during this hospital stay. pre-DM resolved. BSGs - even on steroids - were acceptable. (9) Hx of deep venous thrombosis: DVT in 2017 - in the setting of having prostate cancer. Took Xarelto for several years then came off such. Xarelto 10mg daily while here, then will take 30 days post d/c due to high risk of VTE during his recovery. Total Time Total Time Spent Total Time Spent (In Minutes): 45 Discharge Plan Discharge Items Patient Disposition: Home - Self-Care Reason For Visit: COVID-19 Infection, weakness Discharge Diagnosis: 1. COVID-19 infection 2. Pneumonia due to COVID-19 3. Weakness due to COVID - improved 4. Confusion due to COVID - resolved 5. Low sodium - resolved Activity: As commented below Activity Comment: gradually increase your activities over the next 1-2 weeks Non-emergency contact: Primary Care Provider Call non-emergency contact if: you have any medication questions, your symptoms worsen and you have a fever Follow-up/Referrals: Richard Bonilla MD [Primary Care Provider] - 12/14/21 10:45 am Diet: Heart Healthy Addtl Attending Provider Instructions: Mr Fernando, You were hospitalized for COVID-19 infection. All of your presenting symptoms - confusion, weakness, cough, etc - were due to COVID-19. Your chest x-ray did show mild pneumonia from the COVID-19. You received IV fluids, IV steroids, and a medication called Remdesivir to treat your infection. You responded nicely to these and your symptoms have improved. Recommendations - 1. dexamethasone steroid -- take 6mg once daily for 7 days starting TODAY, 12/03/21. Take with food. This is for your COVID pneumonia. 2. blood clot prevention - take XARELTO 10mg once daily x 30 days starting TOMORROW, 12/04/21. See section below regarding blood thinners. Be sure to bring the voucher with you to the pharmacy to receive the medication for free. 3. continue your incentive spirometer and flutter valve for the next week. 4. continue to sleep/rest on your SIDE when in the bed. This helps your breathing. 5. you may take [id number] mucinex up to 1200mg twice daily as needed/desired for cough/congestion. 6. Please continue to isolate at home for another 3 days. Please avoid visitors to your home during this 3-day period. On Tuesday you may come out of isolation (go out into the community/leave your home/resume normal activities) if - * you have no fever on Tuesday and Tuesday * you continue to improve in all your symptoms 7. you may have cough, fatigue, etc for another 1-2 weeks upon return home. This is normal during the recovery period. 8. ATENOLOL - please lower the medication dose to the following - * only take 25mg of Atenolol once daily in the morning (you previously took 50mg every AM and 25mg every PM) 9. Finally, please discontinue the fish oil supplement while you are on the 30 day course of Xarelto. You can resume the fish oil once you have finished the Xarelto. Follow-up - see Dr Bonilla as scheduled Return to [facility] if - * you have worsening shortness of breath * you have chest pains * you have swelling in your legs or you have pain in your legs * you have recurrent fevers over 100 degrees * any other concerns It was our pleasure to care for you at [facility]! Please continue to feel better, Dr Tipton Addtl Engineering Design Supervisor Provider Instructions: BLOOD THINNER Instructions: For reasons not entirely known some people develop blood clots while recovering from COVID infection. Because you have had blood clots in the past you are likely at higher risk of developing a blood clot during your recovery. Thus, we are prescribing XARELTO blood thinner. Blood thinners, also known as "Anticoagulants," thin your blood to help prevent clots. Your XARELTO dose is 10mg. Take for 30 days. * You should take your medication exactly as directed. * Never skip a dose. * Never take a double dose. If you miss a dose, take it as soon as you remember. Call your Primary Care doctor if you experience any of the following: * Swelling or Pain in your leg * Sudden, continuous pain deep in a muscle * Pain that worsens when you are active or when you stand still for a long time * Chest Pain * Sudden Shortness of Breath * Rapid or pounding heart beat * Fainting * Dizziness * Cough with blood or bloody sputum * Sweating more than normal * Bruises * Heavy or uncontrolled bleeding * Blood in your urine, stool or vomit * Black or tarry stools * Heavy nose bleeding Caring for Your Self at Home: * Avoid sitting, standing or lying down for long periods without moving your legs and feet * When traveling by car, stop to get out and move around at least once every 3 hours * On long airplane, train or bus rides, get up and move around when possible * If you can't get up, wiggle your toes and tighten your calves to keep your blood moving Pending Studies at Discharge: No Stand-Alone Forms: My [email or web address], Smoking Cessation Medications and DC Order Prescriptions: New Xarelto 10 mg Tablet 10 mg PO DAILY 30 Days Qty: 30 0RF Rx Instructions: first dose 12/04/21 dexamethasone 6 mg tablet 6 mg PO DAILY 7 Days Qty: 7 0RF Rx Instructions: first dose 12/03/21 Continued simvastatin 40 mg tablet 40 mg PO QPM Qty: 90 3RF aspirin [Colin Chewable Aspirin] 81 mg tablet,chewable 81 mg PO QAM cholecalciferol (vitamin D3) [Vitamin D3] 1,000 unit Capsule 1,000 unit PO QAM Changed atenolol 50 mg tablet 25 mg PO DAILY Qty: 30 0RF Discontinued omega 0-vcv-[id number]-fish oil [Fish Oil] 1,000 mg (120 mg-180 mg) Capsule 1 cap PO QAM Discharge Orders: Discharge Order (Routine); Ordered 12/03/21 Ordered By: Aaron Horton/Other Patient Handouts: Caring for Someone Who Has COVID-19, Disinfecting Your Home of COVID-19, How COVID-19 Spreads, COVID-19 Home Care Admission Data Admit Date/Time: 11/29/21 22:52 Attending Provider: Aaron Tipton Admit Provider: Chetna Ernst Primary Care Provider: Richard Bonilla Other Providers: Chetna Ernst Other Interventions: Discharge Summary Assessment (RN) Last Done: 12/03/21 14:58 Coding Level of Care Code D/C DAY MANAGEMENT >30 MINS Diagnoses Pneumonia due to COVID-19 virus U07.1; J12.82 Encephalopathy acute G93.40 Acute hyponatremia E87.1 Hypomagnesemia E83.42 Coronary artery disease I25.10 Associated angina: without angina Coronary Disease-Associated Artery/Lesion type: [place] artery [place] vs. transplanted heart: [place] heart Dyslipidemia E78.5 HTN (hypertension) I10 Hypertension type: essential hypertension Impaired fasting glucose R73.01 Hx of deep venous thrombosis Z86.718
[2021-12-03 15:22] VITALS: BP 114/73; PULSE 53; O2SAT 94
[2021-12-03 15:24] VITALS: TEMP 97.9
== END 2021-12-03 17:40 | disposition home or self-care (01) | DRG 177 ==
LOC: ED 20:35 → EDINP 22:52 → SUATTDRO 22:52 → 3W 23:06

== ENCOUNTER 2023-08-22 07:39 | Inpatient (IN) ==
--- NOTE | 2023-08-15 15:28 | Anesthesiology Consultation ---
Date of Service August 15, 2023 Assessment & Plan (1) Encounter for pre-operative examination: Chart Review Chart Review: Acceptable Risk for Surgery and Patient NOT seen in Pre Admission Testing - Will leave to anesthesiologist's discretion DOS if repeat EKG needed -Infectious Disease screening: Per PAT nursing assessment on 08/15/23. No known infectious disease contacts in past 10 days or current infectious disease symptoms. No recent travel outside the country. Seen by cardiology 06/29/23= longstanding CADstatus post BMS to RCA 1999. May 2022 DSE showed no ischemia. Patient denies any chest pain or anginal type pains. Despite respiratory and cardiac arrest in Aprilhis LV systolic function/wall motion was normal thereafter. Chronic lung disease. PAD. Stable claudication both lower legs. CT of the neck showing severe left ICA stenosis. Dyslipidemia. Hypertensionsystolic pressure mildly elevated today. In light of diffuse vascular disease will change statin from simvastatin to maximum dose of atorvastatin 40 mg daily. Refer to vascular surgery for evaluation of possible carotid disease. Continue other medications. Follow-up in 6 months. " The patient currently has no anginal-type symptoms. Despite his cardiac and respiratory arrest in April there has no evidence of a myocardial infarction. Based on these findings he has an acceptable cardiac risk to undergo a carotid artery revascularization procedure. " History Surgery Operation Date: 08/22/23 08:00 Proposed Procedures p Left Transcarotid Artery Revascularization - Braulio Woods MD Height/Weight Height: 5 ft 8 in Weight: 65.771 kg Allergies Allergy/AdvReac Type Severity Reaction Status Date / Time sertraline AdvReac Unknown Fatigued Verified 08/15/23 14:25 Medications Home Medications Medication Instructions Recorded Confirmed Last Taken aspirin 81 mg chewable tablet 81 mg PO QAM 04/20/19 08/15/23 07/04/22 08:00 (Colin Chewable Low Dose Aspirin) cholecalciferol (vitamin D3) 25 25 mcg PO DAILY 05/25/22 08/15/23 07/02/22 mcg (1,000 unit) capsule omega-3 fatty acids 1,000 mg 1,000 mg PO DAILY 05/25/22 08/15/23 07/02/22 capsule vitamin B complex 1 tab PO DAILY 05/25/22 08/15/23 07/02/22 lidocaine 4 % topical patch 1 patch topical DAILY PRN Pain 05/09/23 08/15/23 Unknown (Aspercreme (lidocaine)) atenolol 25 mg tablet See Rx Instructions .Route 06/02/23 08/15/23 Unknown .COMPLEX #90 tabs rosuvastatin 40 mg tablet 40 mg PO DAILY #90 tabs 06/29/23 08/15/23 Unknown tamsulosin 0.4 mg capsule 0.4 mg PO DAILY #90 caps 07/05/23 08/15/23 Unknown clopidogrel 75 mg tablet (Plavix) 75 mg PO QAM 08/09/23 08/15/23 Unknown Past Medical History Medical History (Updated 08/15/23 @ 15:26 by Nicolasa Salazar PA-C) Aspiration pneumonia 04/2023 (felt secondary to chewing tobacco per PCP records) Bilateral carotid artery disease Per 04/27/2023 neck CTA-atherosclerotic calcifications of the carotid bifurcations resulting in moderate (50 to 70%) stenosis on the right and severe (70-90%) stenosis in the left Cardiac arrest 04/27/23- felt to be precipitated by resp failure ( complications from pneumonia and RSV)--[place] [facility] Chronic obstructive pulmonary disease stable per PCP records Coronary artery disease PCI/BMS to RCA in 1999 (at time of 1999 cath had diffuse coronary atherosclerotic disease per cardio records ) Dyslipidemia History of COVID-19 11/2021- hospitalized w/ covid pneumonia History of prostate cancer 2017 NO SURGERY/RADIATION [place] ONLY HTN (hypertension) Hx of deep venous thrombosis 2017 per records -- placed on Xarelto- referred to heme - Xarelto subsequently discontinued per PCP records Long COVID PAD (peripheral artery disease) Past Family History Family History Brother Cardiac disorder Sister Hepatic cirrhosis Other No family history of adverse response to anesthesia Denies family history of Ovarian cancer Prostate cancer Myocardial infarction Breast cancer Colorectal cancer Past Surgical History Surgical History History of colonoscopy X MULTIPLE History of excision of pilonidal cyst History of heart artery stent 1999>1 STENT (FOLLOWS WITH DR. MCKEON) History of nasal cauterization History of shoulder surgery RT/LEFT History of tooth extraction Hx of cataract surgery RT/LEFT Hx of prostate biopsy Social History Smoking Status: Former smoker tobacco type: cigarettes Do You Dip or Chew Tobacco: Yes (1 can/2 wks- advised by nursing) Smoking End Date: quit smoking 2016 Hx Alcohol Use: Yes Alcohol type: beer alcohol intake frequency: 0-2 drinks per day Hx Substance Use: No substance use type: does not use Lab Results Anesthesia Preop Results Results Anesthesia Widget: WBC 4.47 K/ul (4.8-10.8) L 08/15/23 Hgb 13.4 g/dl (14.0-18.0) L 08/15/23 Hct 40.3 % (42.0-52.0) L 08/15/23 Plt 156 K/uL (130-400) 08/15/23 Na 135 mmol/L (136-145) L 08/15/23 K 4.0 mmol/L (3.5-5.1) 08/15/23 Cl 97 mmol/L (98-107) L 08/15/23 CO2 33 mmol/L (21-32) H 08/15/23 BUN 7 mg/dl (6-23) 08/15/23 Creat 0.53 mg/dl (0.6-1.4) L 08/15/23 Glucose Level 97 mg/dl (70-99(Fasting)) 08/15/23 Testing Electrocardiogram Date: 04/27/23 Findings: + ST @ (123 bpm) Diffuse minor nonspecific ST and T wave abnormality When compared EKG from November 29, 2021no significant changes found per cardio Chest X-Ray Date: 08/15/23 FINDINGS: No pneumothorax. The cardiac silhouette is normal in size. No evidence for pulmonary edema. Bibasilar linear densities persist and favor scarring. Right basilar pleural calcifications again noted. Blunting of the costophrenic sulci remains unchanged and favors pleural scarring. No definite pleural effusions. No new focal lung consolidations to suggest a pneumonia. No evidence for pulmonary edema. IMPRESSION: No significant change compared to the prior study. No acute process. Echocardiogram Date: 05/02/23 EF: 60-65% LV Function: normal RWMA: + none Other Findings: no LVH or no diastolic dysfunction Valvular Disease: + no significant valvular disease Normal RV size and function Stress Test Date: 06/07/22 Type: DSE Resting EF: 55 to 60% Resting LV Function: normal Valvular Disease: no significant valvular disease Normal dobutamine echocardiogram without evidence of inducible ischemia MPHR 100%. Baseline EKG was normal. No significant ST or T wave changes during exercise recovery. Other Testing CTA brain/head, CT brain/head, CT perfusion cerebral study, CTA of neck 04/27/2023 = no acute intracranial abnormality. No perfusion abnormality. Atherosclerotic calcifications of the carotid bifurcations resulting in moderate stenosis of the right and severe stenosis in the left. Unremarkable CTA of the head
[~2023-08-22 07:39] MED LIST changes: -ASPI81TA28 PO; -ATEN50TA8 PO; +ATROPINE SULFATE 0.1 MG/ML 10ML SYR IV PRN; -B CO1TAB7 PO; -CHOL100010 PO; +DEXAMETHASONE SOD INJ 4 MG/ML VIAL ONE; +GLYCOPYRROLATE 0.2 MG/ML VIAL ONE; +HEPARIN SOD (PORCINE) 1000 UNIT/ML ONE; +HYDROmorphone INJ 1 MG/ML SYRINGE IV PRN; +LIDOCAINE 2% 2 ML VIAL/AMP(20MG/ML) INFIL ONE; +MIDAZOLAM HCL 1 MG/ML 2ML VIAL ONE; -OMEG10007 PO; +ONDANSETRON INJ 2 MG/ML 2 ML VIAL IV PRN; +ONDANSETRON INJ 2 MG/ML 2 ML VIAL ONE; +PHENYLEPHRINE HCL 10 MG/ML VIAL ONE; +PROPOFOL IV EMULSION 10 MG/ML 20 ML VIAL IV ONE; -RIVA1TAB4 PO; +ROCURONIUM BROMIDE 10 MG/ML 5 ML VIAL IV ONE; -SIMV40TA2 PO; +SUGAMMADEX SODIUM 200 MG/2 ML VIAL IV ONE; -TNR50 PO; +ePHEDrine sulfate 50 MG/ML AMP IV PRN; +fentaNYL citrate PF 100 MCG/2 ML VIAL IV PRN; +fentaNYL citrate PF 100 MCG/2 ML VIAL ONE
--- NOTE | 2023-08-22 07:43 | History & Physical Report ---
Date of Service August 22, 2023 History of Present Illness Primary Care Provider: MARK Tobar Chief Complaint: _Follow up for carotid stenosis HPI: _Mr. Fernando is an elderly male presents to Dr. Woods vascular surgery clinic today as a new patient in consultation for bilateral carotid stenosis noted on recent imaging. Patient unfortunately suffered an episode of cardiac arrest in April 2023, and was flown to [facility], where he was evaluated. During that hospital stay at [facility], he was found to have significant bilateral carotid stenosis, although was felt to be asymptomatic from that. His film library clerk noted that the patient has not yet been seen to have this addressed, and referred him to our office. Upon questioning, patient denies any symptoms of cerebrovascular insufficiency such as amaurosis, unilateral extremity weakness numbness or tingling, difficulty speaking or swallowing, facial droop, sudden onset confusion. He has done well since his release from the hospital, and continues to improve. He denies other complaints at this time including headache, fever, chest pain, shortness of breath, abdominal pain, nausea, vomiting, rest pain, claudication, nonhealing wounds or ulcers, other complaints. Imaging: Patient had a CTA of the neck performed at [facility] in April 2023, which demonstrates 60 to 70% stenosis of the right ICA, and 80 to 90% stenosis of the left ICA. He had a carotid artery duplex done today that showed severe stenosis of the left internal carotid artery and moderate stenosis of the right. Current Home Meds: (Last Updated 08/02 08:43) aspirin (aspirin 81 mg oral tablet, chewable) 81 mg PO Daily atenolol (atenolol 25 mg oral tablet) cholecalciferol (Vitamin D3 25 mcg (1000 intl units) oral capsule) 25 mcg PO Daily multivitamin (Vitamin B Complex oral tablet) 1 tab PO Daily omega-3 polyunsaturated fatty acids ([place]-3 1000 mg oral capsule) 1,000 mg PO Daily rosuvastatin (rosuvastatin 40 mg oral tablet) 40 mg PO Daily tamsulosin (tamsulosin 0.4 mg oral capsule) 0.4 mg PO Daily Allergies and Sensitivities: No Known Medication Allergies Past Medical History: Problems: Bilateral carotid artery stenosis RSV infection Status post fall OBJECTIVE Vitals: Last Updated 08/03/23 08:49 Date Temp BP Location Pulse RR SpO2 Pain 08/03/23 110/68 Right Arm 08/03/23 118/70 Left Arm 90 98 05/06/23 36.1 109/57 Right Arm 73 20 93 Vital Signs are the last 3 documented. Physical Exam _ General: no acute distress, resting comfortably in his chair HEENT:normocephalic,atraumatic Cardiovascular: regular rate Pulmonary: breathing comfortably on room air, equal chest rise bilaterally Abdomen: soft, nondistended Extremity:Warm and well perfused. 2+ radial pulse bilaterally. No wounds on feet Neuro: CNII-CNXII grossly intact, no focal deficits appreciated Skin: warm and well perfused, no rashes or jaundice appreciated ASSESSMENT: _ PLAN: _ 1 ) _bilateral carotid stenosis Patient has asymptomatic bilateral carotid stenosis, worse in the left than the right. Due to the severity of the left ICA stenosis, I would consider him for surgical intervention. The patency of his left internal carotid artery was confirmed with ultrasound. He does have 90% stenosis of the left internal carotid artery on CTA of his neck. We would recommend the patient undergo a TCAR procedure for his asymptomatic carotid artery stenosis on the left. We discussed the procedure steps and reasons for intervention in detail. The risks and benefits of the procedure were discussed including the risk of stroke, KS, nerve injury.. The patient was provided the opportunity to ask questions and they were answered in detail to his satisfaction. He would like some time to think about intervention. We will go ahead and have him call our office if he decides to undergo intervention. If not we will see him back in the office in 3 months with repeat carotid artery duplex. Patient was counseled on signs and symptoms of TIA and stroke and instructed to call our office if he experiences any of these symptoms. He expressed understanding. Patient and his are agreeable to this plan. They will call with any other questions. Thank you for letting us participate in the care of this patient. I saw and evaluated the patient. Discussed with the resident and agree with the resident's findings and plan as documented in the resident's note. I have personally spent__25___ minutes performing [id number] and non-fac e-to-face activities on this date of service. Activities Include: _x_ review of the medical record _x_ obtaining a history _x_ physical exam/evaluation __ review labs _x_ review radiology reports _x_ counseling/educating patient/family/caregiver __ discussion/referral to other healthcare professional _x_ documenting care in the medical record __ independent interpretation of results __ communication of results to patient/family/caregiver __ coordination of care Signature Line Electronic Signature on File CC: Timothy Mckeon MD [address] [facility] [id number] * CC: MARK Alcaraz [facility] [address] [facility] [address] * Placido Sunshine MD Author Signature Dt/Tm: 08/03/2023 09:32 AM Resident Division of General Surgery Electronically Reviewed/Signed by: Braulio Woods MD Cosigner Signature Dt/Tm: 08/03/2023 09:38 AM Billiard Player Palomo Dela Cruz [facility] [place] [place] [address] PC Result Type: .Outpt Ltr Date of Service: August 03, 2023 09:21 EDT Authorization Status: Final Author or Import Date: MD Bita, Placido on August 03, 2023 09:22 EDT Verified By: MD Peggy, Braulio Bran on August 03, 2023 09:38 EDT Encounter info: [id number], [place] [address], Clinic, 08/03/2023 - 08/03/2023 Allergies Allergy/AdvReac Type Severity Reaction Status Date / Time sertraline AdvReac Unknown Fatigued Verified 08/15/23 14:25 Home Medications Medication Instructions Recorded Confirmed Type aspirin 81 mg chewable tablet 81 mg PO QAM 04/20/19 08/22/23 History (Colin Chewable Low Dose Aspirin) cholecalciferol (vitamin D3) 25 25 mcg PO DAILY 05/25/22 08/22/23 History mcg (1,000 unit) capsule omega-3 fatty acids 1,000 mg 1,000 mg PO DAILY 05/25/22 08/22/23 History capsule vitamin B complex 1 tab PO DAILY 05/25/22 08/15/23 History lidocaine 4 % topical patch 1 patch topical DAILY PRN Pain 05/09/23 08/15/23 History (Aspercreme (lidocaine)) atenolol 25 mg tablet See Rx Instructions .Route 06/02/23 08/22/23 Rx .COMPLEX #90 tabs rosuvastatin 40 mg tablet 40 mg PO DAILY #90 tabs 06/29/23 08/22/23 Rx tamsulosin 0.4 mg capsule 0.4 mg PO DAILY #90 caps 07/05/23 08/22/23 Rx clopidogrel 75 mg tablet (Plavix) 75 mg PO QAM 08/09/23 08/22/23 History Past Med/Surg History Medical History Aspiration pneumonia 04/2023 (felt secondary to chewing tobacco per PCP records) Coronary artery disease PCI/BMS to RCA in 1999 (at time of 1999 cath had diffuse coronary atherosclerotic disease per cardio records ) Bilateral carotid artery disease Per 04/27/2023 neck CTA-atherosclerotic calcifications of the carotid bifurcations resulting in moderate (50 to 70%) stenosis on the right and severe (70-90%) stenosis in the left Long COVID PAD (peripheral artery disease) Cardiac arrest 04/27/23- felt to be precipitated by resp failure ( complications from pneumonia and RSV)--transferred [place] to [facility] [place] History of prostate cancer 2017 NO SURGERY/RADIATION [place] ONLY History of COVID-19 11/2021- hospitalized w/ covid pneumonia Chronic obstructive pulmonary disease stable per PCP records Dyslipidemia Hx of deep venous thrombosis 2017 per records -- placed on Xarelto- referred to heme - Xarelto subsequently discontinued per PCP records HTN (hypertension) Surgical History Hx of prostate biopsy History of tooth extraction History of nasal cauterization History of colonoscopy X MULTIPLE History of excision of pilonidal cyst Hx of cataract surgery RT/LEFT History of shoulder surgery RT/LEFT History of heart artery stent 1999>1 STENT (FOLLOWS WITH DR. MCKEON) Family History Brother Cardiac disorder Sister Hepatic cirrhosis Other No family history of adverse response to anesthesia Denies family history of Ovarian cancer Prostate cancer Myocardial infarction Breast cancer Colorectal cancer Social History Smoking Status: Former smoker Tobacco Type: Cigarettes Age Quit Using Tobacco: 71; Smoking End Date: quit smoking 2016; Second Hand Exposure: No; Do You Dip or Chew Tobacco: Yes (1 can/2 wks- advised by nursing); Tobacco Cessation Education Requested by Patient: No Hx Alcohol Use: Yes Alcohol type: beer Alcohol type Comment: 2-3 Alcohol Intake Frequency: 4 or More x per/Week Alcohol Intake Frequency Comment: daily Hx Substance Use: No Preferred Language: Greek Communication Ability: Effective Visual Impairment: No Limitations Hearing Ability: Hard of Hearing Pipe Straightener Required: No Beliefs That Will Affect Care: None marital status: Current Living Situation: Spouse current occupational status: retired current occupation: semi retired- [employer] Other Information That Helps Us Care for You: No Feels Safe at Home: Yes Safety Concerns: Feels Safe At This Time Childhood Exposure to Second-Hand Smoke: Yes Diet: regular Diet Comment: regular caffeine: Yes during the past year weight has: decreased > 10 lbs Dental Care, Regularly: No Physical Activity Frequency: Daily Physical Activity Frequency Comment: work Seatbelt Use: always Sunscreen Use: No Assistive Devices: Denture - Lower Assistive Devices Comment: lower partial
[2023-08-22] MEDS: LACTATED RINGER'S 1,000 ML BAG IV SCH (08:00)
[2023-08-22 08:13] LABS: Partial Thromboplastin Time 26 Seconds (21-31); Prothrombin Time 10.5 Seconds (9.0-12.0)
--- NOTE | 2023-08-22 08:15 | History & Physical Bridge Note ---
Date of Service August 22, 2023 History & Physical Bridge Note I have examined the patient, reviewed the History & Physical and in the interval since the performance of the History & Physical I have noted the following changes of clinical significance: no changes noted
[2023-08-22] MEDS: CEFAZOLIN 2,000 MG/15 ML SYR IV SCH (08:40)
[2023-08-22] MEDS ORDERED: PHENYLEPHRINE 100MCG/ML 10ML SYR IV ONE (09:21)
[2023-08-22] MEDS ORDERED: ePHEDrine sulfate 50 MG/5 ML SYR ONE (09:21)
[2023-08-22] MEDS ORDERED: PROTAMINE SULFATE 10 MG/ML 5 ML VIAL IV ONE (09:21)
[2023-08-22] MEDS: ceFAZolin 330 MG/ML 1 GM VIAL ONE (09:26)
[2023-08-22] MEDS: VISIPAQUE IV ONE (10:08)
[2023-08-22] MEDS: GELATIN SPONGE SZ 100 ONE (10:16)
[2023-08-22] MEDS: BUPIVACAINE/EPINEPHRINE 0.5% MPF 1:200,000 30 ML VIAL ONE (10:16)
[2023-08-22] MEDS: THROMBIN FOR SOLN 20000 UNIT KIT ONE (10:16)
[2023-08-22] MEDS: SURGICEL ABSORB HEMOSTAT 2IN X 14IN TOP ONE (10:17)
--- NOTE | 2023-08-22 10:24 | Post Operative Brief Note ---
Immediate Post Op Note v1 Date of Surgery August 22, 2023 Pre & Post Diagnosis Operation Date: 08/22/23 08:00 Pre-Op Diagnosis: Bilateral carotid artery stenosis Post-Op Diagnosis: Bilateral carotid artery stenosis I identified the patient and participated in the time-out.: Yes Procedure Operation Date: 08/22/23 08:00 Actual Procedures p Left Transcarotid Artery Revascularization(Left), ultrasound localization of right common femoral vein- Braulio Woods MD Surgeon Braulio Woods MD Marketing Analytics Analyst MD Swati Estimated Blood Loss 20 Findings Consistent with Post-Op Diagnosis Anesthesia Type General Complications none Disposition Accompanied Patient To Recovery: No Disposition: Recovery Room
--- NOTE | 2023-08-22 10:41 | Procedure Note ---
Angiogram Post Procedure Fluoroscopy Time (minutes): 3.9 Radiation (mGy): 18 Contrast: 12 Post Operative Report Pre & Post Diagnosis Operation Date: 08/22/23 08:00 <No data on this case meets the specified criteria> I identified the patient and participated in the time-out.: Yes Procedure Operation Date: 08/22/23 08:00 Actual Procedures p Left Transcarotid Artery Revascularization(Left) - Braulio Woods MD Surgeon Braulio Woods MD Desktop Technician MD Swati Estimated Blood Loss 20 Findings See Below patent left ICA stent extending down into the left common carotid Fluids see anesthesia record Specimens none Drains none Anesthesia Type General Complications none Disposition Accompanied Patient To Recovery: Yes Disposition: Recovery Room Indications High grade left carotid artery stenosis Description of Procedure Patient was brought to the operating room and placed on the operating table in supine position. General anesthesia induced and a ET tube placed. An a- line had previously been placed in the preoperative area. A surgical time out was performed to identify patient, procedure site, indications, and allergies. The patient's head was the turned to the right and the ET tube was secured to the right. The patient's left neck and chest and bilateral groins were prepped and draped in a sterile manner. The patient had a 8cm transverse incision just above the left clavicle using a 10 blade starting near the sternal notch. Using sharp and blunt dissection as well as Bovie electrocautery the subcutaneous tissue and the platysma muscle was incised transversely. The two heads of the SCM were vertically and the common carotid artery was identified. The vagus nerve was also identified. The internal jugular vein was retracted using a vessel tube as it was directly anterior to the common carotid. An umbilical tape was placed under the common carotid. A 5-0 Prolene stitch in a u fashion was placed in the common carotid artery. This was secured in place on a shod. At this time 700U of heparin was given to the patient. After 2-3 minutes an ACT was obtained which was 352. Under ultrasound guidance the right common femoral vein was accessed with an 18 gauge needle and a Yuan wire was inserted. Then the needle was exchanged for an 8 telugu sheath and the sheath was secured to the skin with a silk suture. A TCAR time out was performed and the patient had been previously treated with glycopyrrolate. The micropuncture system was used to access the common carotid, the dilator and wire were removed and a cerebral angiogram was performed. The micropuncture wire was reinserted using the dilator and the external carotid artery was accessed. The microwire and dilator were removed and exchanged for the stiff J wire. The TCAR sheath was exchanged for the micropuncture sheath. The TCAR sheath was secured to the skin using multiple silk sutures. After the J wire and dilator were removed. The flow reversal system was connected between the arterial sheath in left common carotid and the right common femoral vein. The left common carotid artery was clamped using an umbilical tape and a Rumel. Reversal of flow was confirmed using saline flushes following clamping of the common carotid. Using the monorail system a 4.5x35 balloon was placed across the common into internal bifurcation and was used to predilate the lesion. The ballo on was taken to nominal pressure. Then the balloon was exchanged for a 9-7 tapered by 40 stent which was deployed across the left internal carotid into the left common carotid. There was residual stenosis of the stent therefore a 4.5x35 balloon was used to postdilate the distal portion of the stent which improved the stenosis. After waiting 2 minutes of reversal of blood flow following stent manipulation cerebral angiogram was performed with demonstrated patent stent and no signs of dissection or thrombosis. The wire access was removed. The common carotid artery was unclamped for a total of 11minutes clamp time. The flow reversal system was disconnected and the blood was returned to the patient. The U stitch was tied as the sheath was removed from the common carotid artery. Hemostasis of the access site was obtained using Surgicel. The patient was given 25mg of protamine at this time. After 2-3 minutes an ACT was obtained which was 150. The venous sheath was removed and pressure was held to obtain hemostasis. In the neck various muscle and subcutaneous oozing was controlled using Bovie electrocautery. The subcutaneous tissue was closed using a 3-0 Vicryl and the skin was closed using a 4-0 Vicryl. The patient was awoken from general anesthesia and was able to move all limbs. The patient was taken to the PACU for recovery. All needle and sponge counts were correct at the end of the procedure. I, Dr. Woods was present and scrubbed for the entire procedure. I attest to the content of the Intraoperative Record and any orders documented therein. Any exceptions are noted below.
[2023-08-22] MEDS: PHENYLEPHRINE/NSS 25 MG/250 ML BAG IV PRN ×2 (10:50→16:37)
[2023-08-22] MEDS ORDERED: STAT IV Infusion **Titration per Protocol STA (12:52)
[2023-08-22] MEDS ORDERED: oxyCODONE/ACETAMINOPHEN 5mg/325mg TAB PO PRN (12:52)
[2023-08-22] MEDS ORDERED: LIDOCAINE 5% 1 PATCH TD PRN (13:09)
--- NOTE | 2023-08-22 13:54 | Critical Care Consultation ---
Date of Consultation August 22, 2023 Assessment & Plan (1) Left carotid artery stenosis: (2) Chronic obstructive pulmonary disease: Plan Impression: 78-year-old male with symptomatic carotid stenosis status post left transcarotid artery revascularization. He is on a low-dose of Fran-Synephrine postoperatively but otherwise appears to be doing well clinically. Recommendations: 1. Carotid stenosis status post TCAR: Management per vascular surgery. Will continue to follow. 2. Hypotension: The patient takes atenolol and Flomax in the outpatient setting which may be contributing. Continue to monitor clinically at this point time. No indication for glucagon reversal. Would hold antihypertensives for now and try and wean off of Fran-Synephrine as tolerated. If continued issues, consideration for oral midodrine might be appropriate. 3. COPD: Patient is not bronchospastic currently. Will continue to monitor. Short acting bronchodilators as needed. 4. Postoperative labs are currently pending. The patient's remaining critical care issues have been well addressed by the vascular surgery service. Will continue to follow with you. Feel free to contact us with questions or concerns History of Present Illness Attending Physician: Braulio Woods MD History of Present Illness Asked by vascular surgery service to assist in evaluation management this patient status post transcarotid artery revascularization. History is obtained from review the electronic medical record as well as discussion with the patient. Patient is a 78-year-old male with a history of COPD and prior history of tobacco abuse. He has been followed in the vascular surgery clinic for bilateral carotid stenosis and recently underwent repeat scan demonstrating 80 to 90% stenosis of the left ICA. He was taken to the OR today where he underwent left transcarotid artery revascularization. He was brought to the ICU on a low-dose of Fran-Synephrine and neurologically intact without significant complaints. We are monitoring in the ICU post vascular procedure. The patient denies any pain. No neurological complaints. No chest pain or palpitations. He denies any voice changes, hoarseness, or difficulty chewing or swallowing. He overall feels like he is doing well clinically Allergies Allergy/AdvReac Type Severity Reaction Status Date / Time sertraline AdvReac Unknown Fatigued Verified 08/22/23 07:56 Home Medications Medication Instructions Recorded Confirmed Type aspirin 81 mg chewable tablet 81 mg PO QAM 04/20/19 08/22/23 History (Colin Chewable Low Dose Aspirin) cholecalciferol (vitamin D3) 25 25 mcg PO DAILY 05/25/22 08/22/23 History mcg (1,000 unit) capsule omega-3 fatty acids 1,000 mg 1,000 mg PO DAILY 05/25/22 08/22/23 History capsule vitamin B complex 1 tab PO DAILY 05/25/22 08/22/23 History lidocaine 4 % topical patch 1 patch topical DAILY PRN Pain 05/09/23 08/15/23 History (Aspercreme (lidocaine)) atenolol 25 mg tablet See Rx Instructions .Route 06/02/23 08/22/23 Rx .COMPLEX #90 tabs rosuvastatin 40 mg tablet 40 mg PO DAILY #90 tabs 06/29/23 08/22/23 Rx tamsulosin 0.4 mg capsule 0.4 mg PO DAILY #90 caps 07/05/23 08/22/23 Rx clopidogrel 75 mg tablet (Plavix) 75 mg PO QAM 08/09/23 08/22/23 History Patient History Medical History Aspiration pneumonia 04/2023 (felt secondary to chewing tobacco per PCP records) Coronary artery disease PCI/BMS to RCA in 1999 (at time of 1999 cath had diffuse coronary atherosclerotic disease per cardio records ) Bilateral carotid artery disease Per 04/27/2023 neck CTA-atherosclerotic calcifications of the carotid bifurcations resulting in moderate (50 to 70%) stenosis on the right and severe (70-90%) stenosis in the left Long COVID PAD (peripheral artery disease) Cardiac arrest 04/27/23- felt to be precipitated by resp failure ( complications from pneumonia and RSV)--transferred [place] to [facility] [place] History of prostate cancer 2017 NO SURGERY/RADIATION [place] ONLY History of COVID-19 11/2021- hospitalized w/ covid pneumonia Chronic obstructive pulmonary disease stable per PCP records Dyslipidemia Hx of deep venous thrombosis 2017 per records -- placed on Xarelto- referred to heme - Xarelto subsequently discontinued per PCP records HTN (hypertension) Surgical History Hx of prostate biopsy History of tooth extraction History of nasal cauterization History of colonoscopy X MULTIPLE History of excision of pilonidal cyst Hx of cataract surgery RT/LEFT History of shoulder surgery RT/LEFT History of heart artery stent 1999>1 STENT (FOLLOWS WITH DR. MCKEON) Family History Brother Cardiac disorder Sister Hepatic cirrhosis Other No family history of adverse response to anesthesia Denies family history of Ovarian cancer Prostate cancer Myocardial infarction Breast cancer Colorectal cancer Social History Smoking Status: Former smoker Tobacco Type: Cigarettes Age Quit Using Tobacco: 71; Smoking End Date: quit smoking 2016; Second Hand Exposure: No; Do You Dip or Chew Tobacco: Yes (1 can/2 wks- advised by nursing); Tobacco Cessation Education Requested by Patient: No Hx Alcohol Use: Yes Alcohol type: beer Alcohol type Comment: 2-3 Alcohol Intake Frequency: 4 or More x per/Week Alcohol Intake Frequency Comment: daily Hx Substance Use: No Preferred Language: Mexican Communication Ability: Effective Visual Impairment: No Limitations Hearing Ability: Hard of Hearing Antenna Design Engineer Required: No Beliefs That Will Affect Care: None marital status: Current Living Situation: Spouse current occupational status: retired current occupation: semi retired- [employer] Other Information That Helps Us Care for You: No Feels Safe at Home: Yes Safety Concerns: Feels Safe At This Time Childhood Exposure to Second-Hand Smoke: Yes Diet: regular Diet Comment: regular caffeine: Yes during the past year weight has: decreased > 10 lbs Dental Care, Regularly: No Physical Activity Frequency: Daily Physical Activity Frequency Comment: work Seatbelt Use: always Sunscreen Use: No Assistive Devices: Denture - Lower Assistive Devices Comment: lower partial Review of Systems Review of Systems: All systems reviewed & are unremarkable except as noted in Subjective Physical Exam Constitutional: WD/WN, vitals as above Neck: trachea midline, no thyromegaly Respiratory: normal respiratory effort, lungs clear to auscultation Cardiovascular: RRR, no murmur, no edema Gastrointestinal (Abdomen): normal bowel sounds, soft, nontender, no hepatosplenomegaly Musculoskeletal: Extremities: extremities normal to inspection Skin: no rashes, warm and dry Neurologic: Nonfocal exam Lymphatic: no cervical lymphadenopathy Results & Data Results & Data Vital Signs (Past 12 Hours) Vital Signs Temp Pulse Resp BP BP Pulse Ox O2 Del Method 08/22/23 12:52 Nasal Cannula 08/22/23 12:05 59 L 14 103/45 L 100 Nasal Cannula 08/22/23 11:55 72 16 105/46 L 109/47 L 100 Nasal Cannula 08/22/23 11:40 36.3 C L 69 18 115/61 112/45 L 100 Nasal Cannula 08/22/23 11:30 56 L 16 109/53 L 112/49 L 100 Nasal Cannula 08/22/23 11:20 69 18 108/47 L 91 Room Air 08/22/23 11:10 71 14 100/55 L 98 Room Air 08/22/23 11:00 70 16 101/55 L 98 Room Air 08/22/23 10:50 84 14 105/52 L 93 Oxymask 08/22/23 10:43 36 C L 78 16 84/44 L 98 Oxymask 08/22/23 07:52 36.4 C L 65 20 146/68 H 94 Room Air O2 Flow Rate 08/22/23 12:52 2 08/22/23 12:05 2 08/22/23 11:55 2 08/22/23 11:40 2 08/22/23 11:30 2 08/22/23 11:20 08/22/23 11:10 08/22/23 11:00 08/22/23 10:50 4 08/22/23 10:43 6 08/22/23 07:52 Critical Care Results & Data Vital Signs (Past 12 Hours) Vital Signs Temp Pulse Resp BP BP Pulse Ox O2 Del Method 08/22/23 12:52 Nasal Cannula 08/22/23 12:05 59 L 14 103/45 L 100 Nasal Cannula 08/22/23 11:55 72 16 105/46 L 109/47 L 100 Nasal Cannula 08/22/23 11:40 36.3 C L 69 18 115/61 112/45 L 100 Nasal Cannula 08/22/23 11:30 56 L 16 109/53 L 112/49 L 100 Nasal Cannula 08/22/23 11:20 69 18 108/47 L 91 Room Air 08/22/23 11:10 71 14 100/55 L 98 Room Air 08/22/23 11:00 70 16 101/55 L 98 Room Air 08/22/23 10:50 84 14 105/52 L 93 Oxymask 08/22/23 10:43 36 C L 78 16 84/44 L 98 Oxymask 08/22/23 07:52 36.4 C L 65 20 146/68 H 94 Room Air O2 Flow Rate 08/22/23 12:52 2 08/22/23 12:05 2 08/22/23 11:55 2 08/22/23 11:40 2 08/22/23 11:30 2 08/22/23 11:20 08/22/23 11:10 08/22/23 11:00 08/22/23 10:50 4 08/22/23 10:43 6 08/22/23 07:52 Lab & Micro Results (Past 24 Hours) No Data to Display No Data to Display Prothromb Time International Ratio 1.0 (0.9-1.1) 08/22/23 07:4 7 I & O Totals 24 Hours 08/21/23 08/22/23 08/23/23 06:59 06:59 06:59 Intake Total 1310.130 / 1310.130 Output Total 20 / 20 Balance 1290.130 / 1290.130 Cumulative 08/08/23 16:23 thru 08/22/23 13:30 Intake Total 1310.130 Output Total 20 Balance 1290.130 RT Ventilator Mngmt (Last Documented) Ventilator Ordered Settings Respiratory Rate 14 08/22/23 12:05 Ventilator - PT Measurements Respiratory Rate 14 Coding Level of Care Code 14902 IN/OBS CONSULT LVL 3,45M Diagnoses Left carotid artery stenosis I65.22 Chronic obstructive pulmonary disease J44.9
[2023-08-22] MEDS: LACTATED RINGER'S 1,000 ML IV SCH (14:46)
--- NOTE | 2023-08-22 15:12 | Anesthesiology Progress Note ---
Date of Service August 22, 2023 Anesthesia Post Procedure Vital Signs Vital Signs: Temp Pulse Pulse Resp BP BP BP 08/22/23 13:02 54 L 14 08/22/23 13:00 103/40 L 08/22/23 13:00 36.5 C 08/22/23 12:59 54 L 14 08/22/23 12:52 08/22/23 12:45 54 L 19 08/22/23 12:39 54 L 18 08/22/23 12:05 59 L 14 103/45 L 08/22/23 11:55 72 16 105/46 L 109/47 L 08/22/23 11:40 36.3 C L 69 18 115/61 112/45 L 08/22/23 11:30 56 L 16 109/53 L 112/49 L 08/22/23 11:20 69 18 108/47 L 08/22/23 11:10 71 14 100/55 L 08/22/23 11:00 70 16 101/55 L 08/22/23 10:50 84 14 105/52 L 08/22/23 10:43 36 C L 78 16 84/44 L 08/22/23 07:52 36.4 C L 65 20 146/68 H Pulse Ox O2 Del Method O2 Flow Rate 08/22/23 13:02 100 Nasal Cannula 2 08/22/23 13:00 08/22/23 13:00 08/22/23 12:59 100 08/22/23 12:52 Nasal Cannula 2 08/22/23 12:45 99 08/22/23 12:39 99 08/22/23 12:05 100 Nasal Cannula 2 08/22/23 11:55 100 Nasal Cannula 2 08/22/23 11:40 100 Nasal Cannula 2 08/22/23 11:30 100 Nasal Cannula 2 08/22/23 11:20 91 Room Air 08/22/23 11:10 98 Room Air 08/22/23 11:00 98 Room Air 08/22/23 10:50 93 Oxymask 4 08/22/23 10:43 98 Oxymask 6 08/22/23 07:52 94 Room Air Transfer of Care Handoff Completed per policy Notes Mental Status: alert / awake / arousable and participated in evaluation Patient Amnestic to Procedure: Yes Nausea / Vomiting: adequately controlled Pain: adequately controlled Airway Patency, RR, SpO2: stable & adequate BP & HR: stable & adequate Hydration State: stable & adequate Anesthetic Complications: no major complications apparent and Pt Satisfied with anesthetic care
[2023-08-22] MEDS: ceFAZolin 2000MG 2,000 MG/15 ML SYR IV SCH (16:28)
[2023-08-23 05:08] LABS: Hematocrit (blood only) 32.9 % (42.0-52.0); Hemoglobin 10.9 g/dl (14.0-18.0); Immature Granulocytes # (auto) 0.04 K/uL (0.01-0.20); Immature Granulocytes % (auto) 0.5 %; Lymphocytes # (auto) 0.53 K/uL (1.20-3.40); Lymphocytes % (auto) 6.1 %; Mean Corpuscular Hemoglobin 28.6 pg (25.0-34.0); Mean Corpuscular Hgb Conc 33.1 g/dL (32.0-36.0); Mean Corpuscular Volume 86.4 fL (80.0-100.0); Mean Platelet Volume 8.9 fL (9.4-12.4); Monocytes # (auto) 0.66 K/uL (0.11-0.59); Monocytes % (auto) 7.6 %; Neutrophils % (auto) 85.8 %; Platelet Count 138 K/uL (130-400); RDW Coefficient of Variation 14.3 % (11.5-14.5); RDW Standard Deviation 45.7 fL (36.4-46.3); Red Blood Count 3.81 M/uL (4.70-6.10); White Blood Count 8.73 K/ul (4.8-10.8)
--- NOTE | 2023-08-23 08:39 | Critical Care Progress Note ---
Date of Service August 23, 2023 Assessment & Plan (1) Left carotid artery stenosis: (2) Chronic obstructive pulmonary disease: Admission and Anticipated Discharge Date Admission Date: August 22, 2023 Subjective Patient seen and evaluated at bedside. Blood pressures have been running relatively soft. He offers no complaints today. Review of Systems Review of Systems: As per HPI. Physical Exam Physical Exam: VITAL SIGNS - Vital signs and nursing notes were reviewed. GENERAL - 78-year-old male appearing his stated age who is in no acute distress. Communicates well with provider and answers questions appropriately. SKIN - LEFT sided neck incision site clean, dry, and intact. HEAD - NC/AT. EYES - PERRL with EOMI bilaterally. Sclera anicteric. NOSE - Midline and without cyanosis. MOUTH/OROPHARYNX - Without perioral cyanosis. NECK - Neck with FROM. LEFT-sided lower neck incision site clean, dry, and intact. LUNGS - Chest wall symmetric without accessory muscle use, intercostals retractions, or central cyanosis. Normal vesicular breath sounds CTA B/L. No wheezes, rales, or rhonchi appreciated. CARDIAC - RRR with S1/S2. No murmur, rubs, or gallops appreciated. ABDOMEN - Abdominal contour flat without pulsations or visible masses. BS normoactive all four quadrants. No tenderness, palpable masses, hepatosplenomegaly, or ascites noted. EXTREMITIES - No clubbing or peripheral cyanosis. No pretibial edema present. +2/5 radial and dorsalis pedis pulses palpated throughout. +5/5 strength noted in UE/LE bilaterally. NEUROLOGIC - Cranial nerves II through XII grossly intact. PSYCH - A&Ox3 and cooperates fully with examiner. Pt is very pleasant and interacts well with examiner. Results & Data Results & Data Vital Signs (Past 12 Hours) Vital Signs Temp Pulse Pulse Resp BP BP BP 08/23/23 07:02 36.6 C 55 L 18 117/47 L 08/23/23 06:46 51 L 16 08/23/23 06:27 56 L 18 129/50 L 08/23/23 05:00 56 L 121/50 L 08/23/23 04:27 59 L 21 08/23/23 04:24 56 L 19 08/23/23 04:23 51 L 21 08/23/23 04:10 53 L 18 08/23/23 04:02 52 L 17 08/23/23 03:30 53 L 14 08/23/23 03:01 112/49 L 08/23/23 02:01 123/48 L 08/23/23 02:01 62 19 08/23/23 02:00 55 L 19 08/23/23 01:32 53 L 17 08/23/23 01:00 53 L 23 08/23/23 01:00 113/43 L 08/23/23 00:30 59 L 21 08/23/23 00:00 36.5 C 119/49 L 08/23/23 00:00 56 L 20 08/23/23 00:00 63 08/22/23 23:35 53 L 19 08/22/23 21:30 53 L 22 08/22/23 21:01 66 21 08/22/23 21:00 62 08/22/23 21:00 113/68 08/22/23 20:59 63 22 Pulse Ox O2 Del Method O2 Flow Rate 08/23/23 07:02 100 Oxymask 2 08/23/23 06:46 100 Nasal Cannula 2 08/23/23 06:27 100 Nasal Cannula 2 08/23/23 05:00 100 Nasal Cannula 2 08/23/23 04:27 94 08/23/23 04:24 94 08/23/23 04:23 95 08/23/23 04:10 100 08/23/23 04:02 96 08/23/23 03:30 98 Nasal Cannula 2 08/23/23 03:01 08/23/23 02:01 08/23/23 02:01 100 08/23/23 02:00 91 08/23/23 01:32 08/23/23 01:00 100 08/23/23 01:00 08/23/23 00:30 92 08/23/23 00:00 08/23/23 00:00 99 08/23/23 00:00 08/22/23 23:35 100 08/22/23 21:30 100 Nasal Cannula 2 08/22/23 21:01 93 Nasal Cannula 2 08/22/23 21:00 08/22/23 21:00 08/22/23 20:59 98 Coding Diagnoses Left carotid artery stenosis I65.22 Chronic obstructive pulmonary disease J44.9
[2023-08-23] MEDS: OMEGA-3 (PURIFIED FISH OIL) 1 GM CAP PO SCH (09:01)
[2023-08-23] MEDS: ASPIRIN 81 MG CHEW PO SCH (09:01)
[2023-08-23] MEDS: CHOLECALCIFEROL 25 MCG (1000 UNITS) TAB PO SCH (09:01)
[2023-08-23] MEDS: CLOPIDOGREL BISULFATE 75 MG TAB PO SCH (09:01)
[2023-08-23] MEDS: VITAMIN B COMPLEX TAB PO SCH (09:02)
[2023-08-23] MEDS: TAMSULOSIN HCL 0.4 MG CAP PO SCH (09:02)
[2023-08-23] MEDS: ROSUVASTATIN CALCIUM 20 MG TAB PO SCH (09:02)
[2023-08-23] MEDS: ATENOLOL 25 MG TABLET PO SCH (09:52)
--- NOTE | 2023-08-23 09:53 | Surgery Progress Note ---
Date of Service August 23, 2023 Assessment & Plan (1) Left carotid artery stenosis: Plan: POD #1 after L TCAR. Pt doing well post op. Hypotensive 86/45 off phenylephrine, will start sudafed 60mg Q6. Probable d/c tomorrow. Admission and Anticipated Discharge Date Admission Date: August 22, 2023 Subjective 78 yo m POD #1 after uncomplicated L TCAR, seen in f/u today. No complaints, denies any neuro sx. Remains hypotensive without phenylepherine. Review of Systems Review of Systems: All systems reviewed & are unremarkable except as noted in HPI & below Physical Exam Constitutional: WD/WN, vitals as above healthy appearing and cooperative; not in distress ENMT: Ears: no hearing impairment Neck: trachea midline Respiratory: normal respiratory effort Auscultation: lungs clear to auscultation bilaterally and + diminished lung sounds Cardiovascular: Rate/Rhythm: regular rate and regular rhythm Vessels: posterior tibial pulses present, dorsalis pedis pulses present and radial pulses present; + abnormal peripheral pulses Extremities: normal capillary refill; no edema Gastrointestinal (Abdomen): Inspection/Auscultation: abdomen normal to inspection and normal bowel sounds Percussion/Palpation: abdomen soft; abdomen nontender Musculoskeletal: no cyanosis or clubbing, extremities motor strength 5/5 Skin: no rashes, warm and dry L neck incision C/D/I, minimal local ecchymosis, tenderness, swelling Neurologic: moves all extremities and awake; no focal motor deficits and not confused Psychiatric: A+Ox3, euthymic affect Results & Data Vital Signs (Past 12 Hours) Vital Signs Temp Pulse Pulse Resp BP BP BP 08/23/23 09:38 62 21 96/48 L 105/38 L 08/23/23 09:15 69 16 97/50 L 106/45 L 08/23/23 09:00 70 22 94/46 L 100/40 L 08/23/23 08:45 71 21 99/36 L 08/23/23 08:30 61 15 136/50 L 08/23/23 08:15 79 20 103/46 L 08/23/23 08:00 74 18 97/43 L 99/46 L 08/23/23 07:45 61 15 94/34 L 08/23/23 07:30 62 23 83/51 L 83/51 L 08/23/23 07:15 56 L 19 87/35 L 08/23/23 07:02 36.6 C 55 L 18 117/47 L 08/23/23 06:46 51 L 16 08/23/23 06:27 56 L 18 129/50 L 08/23/23 05:00 56 L 121/50 L 08/23/23 04:27 59 L 21 08/23/23 04:24 56 L 19 08/23/23 04:23 51 L 21 08/23/23 04:10 53 L 18 08/23/23 04:02 52 L 17 08/23/23 03:30 53 L 14 08/23/23 03:01 112/49 L 08/23/23 02:01 123/48 L 08/23/23 02:01 62 19 08/23/23 02:00 55 L 19 08/23/23 01:32 53 L 17 08/23/23 01:00 53 L 23 08/23/23 01:00 113/43 L 08/23/23 00:30 59 L 21 08/23/23 00:00 36.5 C 119/49 L 08/23/23 00:00 56 L 20 08/23/23 00:00 63 08/22/23 23:35 53 L 19 Pulse Ox O2 Del Method O2 Flow Rate 08/23/23 09:38 92 Room Air 08/23/23 09:15 99 Nasal Cannula 2 08/23/23 09:00 100 Nasal Cannula 2 08/23/23 08:45 95 Nasal Cannula 2 08/23/23 08:30 100 Nasal Cannula 2 08/23/23 08:15 88 L Room Air 08/23/23 08:00 86 L Room Air 08/23/23 07:45 97 Nasal Cannula 2 08/23/23 07:30 98 Nasal Cannula 2 08/23/23 07:15 100 Nasal Cannula 2 08/23/23 07:02 100 Nasal Cannula 2 08/23/23 06:46 100 Nasal Cannula 2 08/23/23 06:27 100 Nasal Cannula 2 08/23/23 05:00 100 Nasal Cannula 2 08/23/23 04:27 94 08/23/23 04:24 94 08/23/23 04:23 95 08/23/23 04:10 100 08/23/23 04:02 96 08/23/23 03:30 98 Nasal Cannula 2 08/23/23 03:01 08/23/23 02:01 08/23/23 02:01 100 08/23/23 02:00 91 08/23/23 01:32 08/23/23 01:00 100 08/23/23 01:00 08/23/23 00:30 92 08/23/23 00:00 08/23/23 00:00 99 08/23/23 00:00 08/22/23 23:35 100
[2023-08-23] MEDS: PSEUDOEPHEDRINE HCL 30 MG TAB PO PRN (10:18)
--- NOTE | 2023-08-23 13:07 | Critical Care Progress Note ---
Date of Service August 23, 2023 Assessment & Plan (1) Left carotid artery stenosis: (2) Chronic obstructive pulmonary disease: Plan Impression: 78-year-old male with symptomatic carotid stenosis status post op day 1 left transcarotid artery revascularization. He is doing well clinically. He is now off Fran-Synephrine Recommendations: 1. Carotid stenosis status post TCAR: Management per vascular surgery. Will continue to follow. 2. Hypotension: Resolved. 3. COPD: Patient is not bronchospastic currently. Will continue to monitor. Short acting bronchodilators as needed. 4. Mild anemia. No indication for transfusion. Disposition per vascular surgery Patient is doing well clinically. His critical care issues appear to have resolved. Critical care will sign off. Feel free to contact us with questions or concerns Admission and Anticipated Discharge Date Admission Date: August 22, 2023 Subjective Patient seen and examined. EMR reviewed. Discussed on multidisciplinary rounds and with bedside critical care nurse as well as with patient and family at bedside. Patient is doing well clinically. He is asymptomatic. He denies any chest pain, palpitations, or shortness of breath. His neck feels fine. His voice is stable. He is not experiencing any difficulty swallowing. No neurological symptoms. Review of Systems Review of Systems: All systems reviewed & are unremarkable except as noted in Subjective Physical Exam Constitutional: WD/WN, vitals as above Neck: trachea midline, no thyromegaly Respiratory: normal respiratory effort, lungs clear to auscultation Cardiovascular: RRR, no murmur, no edema Gastrointestinal (Abdomen): normal bowel sounds, soft, nontender, no hepatosplenomegaly Musculoskeletal: Extremities: extremities normal to inspection Skin: no rashes, warm and dry Lymphatic: no cervical lymphadenopathy Results & Data Results & Data Vital Signs (Past 12 Hours) Vital Signs Temp Pulse Pulse Resp BP BP BP 08/23/23 12:32 64 19 118/52 L 131/51 L 08/23/23 12:15 65 24 108/54 L 122/46 L 08/23/23 12:01 36.5 C 70 16 99/46 L 92/44 L 08/23/23 11:45 80 22 84/41 L 100/40 L 08/23/23 11:30 58 L 22 80/41 L 08/23/23 11:15 59 L 18 92/46 L 90/42 L 08/23/23 11:00 60 22 92/46 L 08/23/23 10:45 60 22 08/23/23 10:35 63 17 08/23/23 10:15 61 14 85/40 L 08/23/23 10:15 61 18 85/40 L 91/35 L 08/23/23 09:38 62 21 96/48 L 105/38 L 08/23/23 09:35 62 21 96/48 L 08/23/23 09:30 63 17 08/23/23 09:15 61 20 08/23/23 09:15 69 16 97/50 L 106/45 L 08/23/23 09:00 66 20 97/50 L 08/23/23 09:00 70 22 94/46 L 100/40 L 08/23/23 08:45 71 21 99/36 L 08/23/23 08:30 61 15 136/50 L 08/23/23 08:15 79 20 103/46 L 08/23/23 08:00 74 18 97/43 L 99/46 L 08/23/23 07:45 61 15 94/34 L 08/23/23 07:30 62 23 83/51 L 83/51 L 08/23/23 07:15 56 L 19 87/35 L 08/23/23 07:02 36.6 C 55 L 18 117/47 L 08/23/23 06:46 51 L 16 08/23/23 06:27 56 L 18 129/50 L 08/23/23 05:00 56 L 121/50 L 08/23/23 04:27 59 L 21 08/23/23 04:24 56 L 19 08/23/23 04:23 51 L 21 08/23/23 04:10 53 L 18 08/23/23 04:02 52 L 17 08/23/23 03:30 53 L 14 08/23/23 03:01 112/49 L 08/23/23 02:01 123/48 L 08/23/23 02:01 62 19 08/23/23 02:00 55 L 19 08/23/23 01:32 53 L 17 Pulse Ox O2 Del Method O2 Flow Rate 08/23/23 12:32 93 Room Air 08/23/23 12:15 97 Room Air 08/23/23 12:01 92 Room Air 08/23/23 11:45 93 Room Air 08/23/23 11:30 94 Room Air 08/23/23 11:15 92 Room Air 08/23/23 11:00 93 Room Air 08/23/23 10:45 92 Room Air 08/23/23 10:35 92 08/23/23 10:15 90 Room Air 08/23/23 10:15 92 Room Air 08/23/23 09:38 92 Room Air 08/23/23 09:35 93 Room Air 08/23/23 09:30 92 Room Air 08/23/23 09:15 99 Nasal Cannula 2 08/23/23 09:15 99 Nasal Cannula 2 08/23/23 09:00 100 Nasal Cannula 2 08/23/23 09:00 100 Nasal Cannula 2 08/23/23 08:45 95 Nasal Cannula 2 08/23/23 08:30 100 Nasal Cannula 2 08/23/23 08:15 88 L Room Air 08/23/23 08:00 86 L Room Air 08/23/23 07:45 97 Nasal Cannula 2 08/23/23 07:30 98 Nasal Cannula 2 08/23/23 07:15 100 Nasal Cannula 2 08/23/23 07:02 100 Nasal Cannula 2 08/23/23 06:46 100 Nasal Cannula 2 08/23/23 06:27 100 Nasal Cannula 2 08/23/23 05:00 100 Nasal Cannula 2 08/23/23 04:27 94 08/23/23 04:24 94 08/23/23 04:23 95 08/23/23 04:10 100 08/23/23 04:02 96 08/23/23 03:30 98 Nasal Cannula 2 08/23/23 03:01 08/23/23 02:01 08/23/23 02:01 100 08/23/23 02:00 91 08/23/23 01:32 Critical Care Results & Data Vital Signs (Past 12 Hours) Vital Signs Temp Pulse Pulse Resp BP BP BP 08/23/23 12:32 64 19 118/52 L 131/51 L 08/23/23 12:15 65 24 108/54 L 122/46 L 08/23/23 12:01 36.5 C 70 16 99/46 L 92/44 L 08/23/23 11:45 80 22 84/41 L 100/40 L 08/23/23 11:30 58 L 22 80/41 L 08/23/23 11:15 59 L 18 92/46 L 90/42 L 08/23/23 11:00 60 22 92/46 L 08/23/23 10:45 60 22 08/23/23 10:35 63 17 08/23/23 10:15 61 14 85/40 L 08/23/23 10:15 61 18 85/40 L 91/35 L 08/23/23 09:38 62 21 96/48 L 105/38 L 08/23/23 09:35 62 21 96/48 L 08/23/23 09:30 63 17 08/23/23 09:15 61 20 08/23/23 09:15 69 16 97/50 L 106/45 L 08/23/23 09:00 66 20 97/50 L 08/23/23 09:00 70 22 94/46 L 100/40 L 08/23/23 08:45 71 21 99/36 L 08/23/23 08:30 61 15 136/50 L 08/23/23 08:15 79 20 103/46 L 08/23/23 08:00 74 18 97/43 L 99/46 L 08/23/23 07:45 61 15 94/34 L 08/23/23 07:30 62 23 83/51 L 83/51 L 08/23/23 07:15 56 L 19 87/35 L 08/23/23 07:02 36.6 C 55 L 18 117/47 L 08/23/23 06:46 51 L 16 08/23/23 06:27 56 L 18 129/50 L 08/23/23 05:00 56 L 121/50 L 08/23/23 04:27 59 L 21 08/23/23 04:24 56 L 19 08/23/23 04:23 51 L 21 08/23/23 04:10 53 L 18 08/23/23 04:02 52 L 17 08/23/23 03:30 53 L 14 08/23/23 03:01 112/49 L 08/23/23 02:01 123/48 L 08/23/23 02:01 62 19 08/23/23 02:00 55 L 19 08/23/23 01:32 53 L 17 Pulse Ox O2 Del Method O2 Flow Rate 08/23/23 12:32 93 Room Air 08/23/23 12:15 97 Room Air 08/23/23 12:01 92 Room Air 08/23/23 11:45 93 Room Air 08/23/23 11:30 94 Room Air 08/23/23 11:15 92 Room Air 08/23/23 11:00 93 Room Air 08/23/23 10:45 92 Room Air 08/23/23 10:35 92 08/23/23 10:15 90 Room Air 08/23/23 10:15 92 Room Air 08/23/23 09:38 92 Room Air 08/23/23 09:35 93 Room Air 08/23/23 09:30 92 Room Air 08/23/23 09:15 99 Nasal Cannula 2 08/23/23 09:15 99 Nasal Cannula 2 08/23/23 09:00 100 Nasal Cannula 2 08/23/23 09:00 100 Nasal Cannula 2 08/23/23 08:45 95 Nasal Cannula 2 08/23/23 08:30 100 Nasal Cannula 2 08/23/23 08:15 88 L Room Air 08/23/23 08:00 86 L Room Air 08/23/23 07:45 97 Nasal Cannula 2 08/23/23 07:30 98 Nasal Cannula 2 08/23/23 07:15 100 Nasal Cannula 2 08/23/23 07:02 100 Nasal Cannula 2 08/23/23 06:46 100 Nasal Cannula 2 08/23/23 06:27 100 Nasal Cannula 2 08/23/23 05:00 100 Nasal Cannula 2 08/23/23 04:27 94 08/23/23 04:24 94 08/23/23 04:23 95 08/23/23 04:10 100 08/23/23 04:02 96 08/23/23 03:30 98 Nasal Cannula 2 08/23/23 03:01 08/23/23 02:01 08/23/23 02:01 100 08/23/23 02:00 91 08/23/23 01:32 Lab & Micro Results (Past 24 Hours) RBC 3.81 M/uL (4.70-6.10) L 08/23/23 WBC 8.73 K/ul (4.8-10.8) 08/23/23 Hgb 10.9 g/dl (14.0-18.0) L 08/23/23 Hct 32.9 % (42.0-52.0) L 08/23/23 MCV 86.4 fL (80.0-100.0) 08/23/23 MCH 28.6 pg (25.0-34.0) 08/23/23 MCHC 33.1 g/dL (32.0-36.0) 08/23/23 RDW Standard Deviation 45.7 fL (36.4-46.3) 08/23/23 RDW Coefficient of Variation 14.3 % (11.5-14.5) 08/23/23 Plt Count 138 K/uL (130-400) 08/23/23 MPV 8.9 fL (9.4-12.4) L 08/23/23 Neutrophils (%) (Auto) 85.8 % 08/23/23 Lymphocytes (%) (Auto) 6.1 % 08/23/23 Monocytes # (Auto) 0.66 K/uL (0.11-0.59) H 08/23/23 Eosinophils # (Auto) 0.00 K/uL (0.00-0.50) 08/23/23 Immature Granulocyte % (Auto) 0.5 % 08/23/23 Neutrophils # (Auto) 7.50 K/uL (1.40-6.50) H 08/23/23 Lymphocytes # (Auto) 0.53 K/uL (1.20-3.40) L 08/23/23 Monocytes # (Auto) 0.66 K/uL (0.11-0.59) H 08/23/23 Eosinophils # (Auto) 0.00 K/uL (0.00-0.50) 08/23/23 Basophils # (Auto) 0.00 K/uL (0.00-0.20) 08/23/23 Immature Granulocyte # (Auto) 0.04 K/uL (0.01-0.20) 4 No Data to Display No Data to Display I & O Totals 24 Hours 08/22/23 08/23/23 08/24/23 06:59 06:59 06:59 Intake Total 2831.861 / 2831.861 1218.187 / 1218.187 Output Total 920 / 920 Balance 1911.861 / 6042.717 2645.187 / 1218.187 Cumulative 04/22/24 16:23 thru 08/23/23 12:37 Intake Total 4050.048 Output Total 920 Balance 3130.048 RT Ventilator Mngmt (Last Documented) Ventilator Ordered Settings Respiratory Rate 19 08/23/23 12:32 Ventilator - PT Measurements Respiratory Rate 19 Coding Level of Care Code 96127 SUB INP/OBS CARE 2/35MIN Diagnoses Left carotid artery stenosis I65.22 Chronic obstructive pulmonary disease J44.9
--- NOTE | 2023-08-24 13:25 | Surgery Progress Note ---
Date of Service August 24, 2023 Assessment & Plan (1) Left carotid artery stenosis: Plan: POD #2 after L TCAR. Pt feeling well post op. New onset a fib this morning, per EKG on chart. Rate adequate, pt asymptomatic. Discussed with Dr Woods, recommends consult pt's hand zipper trimmer, Dr Ochoa. Pt on DAPT for TCAR, but no AC. Regarding post op hypotension, pt to remain on sudafed 60mg Q6 PO and stop phenylephrine. Admission and Anticipated Discharge Date Admission Date: August 22, 2023 Subjective 78 yo m POD #2 after uncomplicated L TCAR, seen in f/u today. Pt states feeling ok, no complaints. Per chart, pt noted to be in a fib early this AM. Review of Systems Review of Systems: All systems reviewed & are unremarkable except as noted in HPI & below Physical Exam Constitutional: WD/WN, vitals as above healthy appearing and cooperative; not in distress ENMT: Ears: no hearing impairment Neck: trachea midline Respiratory: normal respiratory effort Auscultation: lungs clear to auscultation bilaterally and + diminished lung sounds Cardiovascular: Rate/Rhythm: + irregularly irregular Vessels: posterior tibial pulses present, dorsalis pedis pulses present and radial pulses present; + abnormal peripheral pulses Extremities: normal capillary refill; no edema Gastrointestinal (Abdomen): Inspection/Auscultation: abdomen normal to inspection and normal bowel sounds Percussion/Palpation: abdomen soft; abdomen nontender Musculoskeletal: no cyanosis or clubbing, extremities motor strength 5/5 Skin: no rashes, warm and dry (L supraclavicular incision C/D/I, mild local ecchymosis,tenderness) Neurologic: moves all extremities and awake; no focal motor deficits and not confused Psychiatric: A+Ox3, euthymic affect Results & Data Vital Signs (Past 12 Hours) Vital Signs Temp Pulse Pulse Resp BP BP BP 08/24/23 13:00 79 23 08/24/23 13:00 88/45 L 08/24/23 12:56 100/54 L 08/24/23 12:56 67 24 08/24/23 12:30 115/56 L 08/24/23 12:30 71 20 08/24/23 11:30 96/58 L 08/24/23 11:30 95 H 26 H 08/24/23 10:49 112/47 L 08/24/23 10:00 99/51 L 08/24/23 10:00 80 17 08/24/23 09:45 77 24 08/24/23 09:45 96/50 L 08/24/23 09:15 86/53 L 08/24/23 09:15 72 22 08/24/23 08:45 71/49 L 08/24/23 08:45 73 20 08/24/23 08:30 96/53 L 08/24/23 08:30 75 17 08/24/23 08:15 72 16 08/24/23 08:15 85/48 L 08/24/23 08:05 08/24/23 08:00 97 H 08/24/23 08:00 08/24/23 08:00 87/48 L 08/24/23 08:00 79 17 08/24/23 07:45 88 23 08/24/23 07:30 95 H 20 08/24/23 07:15 75 19 08/24/23 07:09 81 33 H 08/24/23 06:00 73 15 107/61 08/24/23 05:00 36.7 C 84 18 112/61 08/24/23 04:00 85 16 105/55 L 08/24/23 03:02 78 16 105/55 L 08/24/23 02:00 75 16 98/53 L Pulse Ox O2 Del Method O2 Flow Rate 08/24/23 13:00 97 Room Air 08/24/23 13:00 08/24/23 12:56 08/24/23 12:56 08/24/23 12:30 08/24/23 12:30 08/24/23 11:30 08/24/23 11:30 08/24/23 10:49 08/24/23 10:00 08/24/23 10:00 94 Nasal Cannula 1 08/24/23 09:45 95 08/24/23 09:45 08/24/23 09:15 08/24/23 09:15 92 08/24/23 08:45 08/24/23 08:45 95 08/24/23 08:30 08/24/23 08:30 94 08/24/23 08:15 95 08/24/23 08:15 08/24/23 08:05 Nasal Cannula 08/24/23 08:00 08/24/23 08:00 Nasal Cannula 08/24/23 08:00 08/24/23 08:00 95 08/24/23 07:45 92 08/24/23 07:30 92 08/24/23 07:15 96 08/24/23 07:09 97 08/24/23 06:00 100 Nasal Cannula 1 08/24/23 05:00 98 Nasal Cannula 1 08/24/23 04:00 95 Nasal Cannula 1 08/24/23 03:02 100 Nasal Cannula 1 08/24/23 02:00 96 Nasal Cannula 1
[2023-08-24] MEDS: PSEUDOEPHEDRINE HCL 30 MG TAB PO SCH (13:26)
--- NOTE | 2023-08-24 17:31 | Cardiology Consultation ---
Date of Consultation August 24, 2023 Assessment & Plan (1) Atrial fibrillation: (2) Coronary artery disease: (3) Dyslipidemia: (4) HTN (hypertension): Plan ASSESSMENT/PLAN: 1. Atrial fibrillation: We discussed the diagnosis. He is completely asymptomatic at this time. Heart rate is well-controlled and he has not received beta-abdoulaye for at least 2 days due to hypotension. Resume beta- abdoulaye when able. We discussed diagnosis in detail. We discussed treatment strategies such as rate control, rhythm control, ablation. This could represent postop A-fib but also may have paroxysmal atrial fibrillation without knowing. Continue rate control strategy for now by resuming beta-abdoulaye when able. Recommend anticoagulation for stroke risk reduction if no contraindication and if okay from a postsurgical standpoint. For now, can use heparin drip and then on discharge, Eliquis. Check electrolytes and TSH in the morning. 2. CAD s/p RCA PCI: No angina. Single antiplatelet therapy would suffice from a cardiac standpoint, especially in the setting of anticoagulation therapy as above. If Plavix is not necessary from a vascular standpoint, can discontinue Plavix while on anticoagulation therapy and continue aspirin 81 mg daily indefinitely. Continue high intensity statin therapy. 3. Dyslipidemia: Continue high intensity statin therapy. Most recent LDL was excellent. 4. Hypertension: History of hypertension but has been hypotensive here for the most part. Blood pressure overall improved this afternoon. Resume beta-abdoulaye when able. 5. Disposition: Cardiology will continue to follow. Upon discharge, he should follow-up with his primary casino cage manager, Dr. Mckeon. Recommendation for anticoagulation therapy was communicated with primary vascular service. Thank you for allowing me to participate in the care of your patient. Please call for any other questions or concerns. Sincerely, Rell Munoz M.D. History of Present Illness Reason for Consultation: Atrial fibrillation Requesting Physician: Verito Singh Attending Physician: Braulio Woods MD History of Present Illness Mr. Fernando is a pleasant 78-year-old gentleman with a history significant for CAD s/p RCA PCI, carotid artery stenosis, peripheral arterial disease, hypertension, dyslipidemia, DVT (2018, COPD, and cardiac arrest on 04/27/2023 in the setting of RSV pneumonia. His primary casino cage manager is Dr. Mckeon. He was admitted on 08/22/2023 for left transcarotid artery revascularization with Dr. Woods. He underwent the procedure and afterwards, was sent to the ICU for monitoring. He was hypotensive with systolic pressure at times in the 80s to 90s. He was transiently treated with Fran-Synephrine for blood pressure management. On 08/23/2023 at approximately 2340, sinus rhythm converted to atrial fibrillation as noted on telemetry. His heart rate did not significantly change however and he was completely asymptomatic in this regard. He denies chest pain, shortness of breath, palpitations, syncope, near syncope, edema, melena, hematochezia, or hematuria. He denies a history of heart failure, diabetes, TIA/stroke. Review of systems: As above. Review of systems otherwise negative/unremarkable. Family history: Positive for CAD. Social history: He quit smoking in 2017. He drinks 2 or 3 beers per day. He lives at home with his . 2 adult daughters. His daughter, Lynn, was present at the bedside. Allergies Allergy/AdvReac Type Severity Reaction Status Date / Time sertraline AdvReac Unknown Fatigued Verified 08/22/23 07:56 Home Medications Medication Instructions Recorded Confirmed Type aspirin 81 mg chewable tablet 81 mg PO QAM 04/20/19 08/22/23 History (Colin Chewable Low Dose Aspirin) cholecalciferol (vitamin D3) 25 25 mcg PO DAILY 05/25/22 08/22/23 History mcg (1,000 unit) capsule omega-3 fatty acids 1,000 mg 1,000 mg PO DAILY 05/25/22 08/22/23 History capsule vitamin B complex 1 tab PO DAILY 05/25/22 08/22/23 History lidocaine 4 % topical patch 1 patch topical DAILY PRN Pain 05/09/23 08/15/23 History (Aspercreme (lidocaine)) atenolol 25 mg tablet See Rx Instructions .Route 06/02/23 08/22/23 Rx .COMPLEX #90 tabs rosuvastatin 40 mg tablet 40 mg PO DAILY #90 tabs 06/29/23 08/22/23 Rx tamsulosin 0.4 mg capsule 0.4 mg PO DAILY #90 caps 07/05/23 08/22/23 Rx clopidogrel 75 mg tablet (Plavix) 75 mg PO QAM 08/09/23 08/22/23 History Patient History Medical History Aspiration pneumonia 04/2023 (felt secondary to chewing tobacco per PCP records) Coronary artery disease PCI/BMS to RCA in 1999 (at time of 1999 cath had diffuse coronary atherosclerotic disease per cardio records ) Bilateral carotid artery disease Per 04/27/2023 neck CTA-atherosclerotic calcifications of the carotid bifurcations resulting in moderate (50 to 70%) stenosis on the right and severe (70-90%) stenosis in the left Long COVID PAD (peripheral artery disease) Cardiac arrest 04/27/23- felt to be precipitated by resp failure ( complications from pneumonia and RSV)--transferred [place] to [facility] [place] History of prostate cancer 2017 NO SURGERY/RADIATION [place] ONLY History of COVID-19 11/2021- hospitalized w/ covid pneumonia Chronic obstructive pulmonary disease stable per PCP records Dyslipidemia Hx of deep venous thrombosis 2018 per records -- placed on Xarelto- referred to heme - Xarelto subsequently discontinued per PCP records HTN (hypertension) Surgical History Hx of prostate biopsy History of tooth extraction History of nasal cauterization History of colonoscopy X MULTIPLE History of excision of pilonidal cyst Hx of cataract surgery RT/LEFT History of shoulder surgery RT/LEFT History of heart artery stent 1999>1 STENT (FOLLOWS WITH DR. MCKEON) Family History Brother Cardiac disorder Sister Hepatic cirrhosis Other No family history of adverse response to anesthesia Denies family history of Ovarian cancer Prostate cancer Myocardial infarction Breast cancer Colorectal cancer Social History Smoking Status: Former smoker Tobacco Type: Cigarettes Age Quit Using Tobacco: 71; Smoking End Date: quit smoking 2016; Second Hand Exposure: No; Do You Dip or Chew Tobacco: Yes (1 can/2 wks- advised by nursing); Tobacco Cessation Education Requested by Patient: No Hx Alcohol Use: Yes Alcohol type: beer Alcohol type Comment: 2-3 Alcohol Intake Frequency: 4 or More x per/Week Alcohol Intake Frequency Comment: daily Hx Substance Use: No Preferred Language: Slovak Communication Ability: Effective Visual Impairment: No Limitations Hearing Ability: Hard of Hearing Animal Doctor Required: No Beliefs That Will Affect Care: None marital status: Current Living Situation: Spouse current occupational status: retired current occupation: semi retired- [employer] Other Information That Helps Us Care for You: No Feels Safe at Home: Yes Safety Concerns: Feels Safe At This Time Childhood Exposure to Second-Hand Smoke: Yes Diet: regular Diet Comment: regular caffeine: Yes during the past year weight has: decreased > 10 lbs Dental Care, Regularly: No Physical Activity Frequency: Daily Physical Activity Frequency Comment: work Seatbelt Use: always Sunscreen Use: No Assistive Devices: Denture - Lower Assistive Devices Comment: lower partial Physical Exam Physical Exam: Gen.: No acute distress. Alert. HEENT: Anicteric sclera. Neck: No JVD. No bruits. Cardiac: No ventricular heave. Irregularly irregular. Normal rate. Normal S1- S2. No murmurs, rubs, or gallops. Pulmonary: Clear to auscultation bilaterally without wheezes, rales, or rhonchi. Abdomen: Soft, nontender, nondistended, with normoactive bowel sounds. No bruits noted. Extremities: 2+ radial pulses bilaterally. No edema or cyanosis. Results & Data Vital Signs (Past 12 Hours) Vital Signs Temp Pulse Pulse Resp BP BP Pulse Ox 08/24/23 15:03 36.5 C 79 18 101/46 L 96 08/24/23 14:00 93 H 20 116/50 L 08/24/23 13:30 70 21 08/24/23 13:30 91/51 L 08/24/23 13:00 79 23 97 08/24/23 13:00 88/45 L 08/24/23 12:56 100/54 L 08/24/23 12:56 67 24 08/24/23 12:30 115/56 L 08/24/23 12:30 71 20 08/24/23 11:30 96/58 L 08/24/23 11:30 95 H 26 H 08/24/23 10:49 112/47 L 08/24/23 10:00 99/51 L 08/24/23 10:00 80 17 94 08/24/23 09:45 77 24 95 08/24/23 09:45 96/50 L 08/24/23 09:15 86/53 L 08/24/23 09:15 72 22 92 08/24/23 08:45 71/49 L 08/24/23 08:45 73 20 95 08/24/23 08:30 96/53 L 08/24/23 08:30 75 17 94 08/24/23 08:15 72 16 95 08/24/23 08:15 85/48 L 08/24/23 08:05 08/24/23 08:00 97 H 08/24/23 08:00 08/24/23 08:00 87/48 L 08/24/23 08:00 79 17 95 08/24/23 07:45 88 23 92 08/24/23 07:30 95 H 20 92 08/24/23 07:15 75 19 96 08/24/23 07:09 81 33 H 97 08/24/23 06:00 73 15 107/61 100 O2 Del Method O2 Flow Rate 08/24/23 15:03 Room Air 08/24/23 14:00 08/24/23 13:30 08/24/23 13:30 08/24/23 13:00 Room Air 08/24/23 13:00 08/24/23 12:56 08/24/23 12:56 08/24/23 12:30 08/24/23 12:30 08/24/23 11:30 08/24/23 11:30 08/24/23 10:49 08/24/23 10:00 08/24/23 10:00 Nasal Cannula 1 08/24/23 09:45 08/24/23 09:45 08/24/23 09:15 08/24/23 09:15 08/24/23 08:45 08/24/23 08:45 08/24/23 08:30 08/24/23 08:30 08/24/23 08:15 08/24/23 08:15 08/24/23 08:05 Nasal Cannula 08/24/23 08:00 08/24/23 08:00 Nasal Cannula 08/24/23 08:00 08/24/23 08:00 08/24/23 07:45 08/24/23 07:30 08/24/23 07:15 08/24/23 07:09 08/24/23 06:00 Nasal Cannula 1 Laboratory Results Laboratory Results - last 48 hr 08/23/23 04:47 WBC 8.73 RBC 3.81 L Hgb 10.9 L Hct 32.9 L MCV 86.4 MCH 28.6 MCHC 33.1 RDW Std Deviation 45.7 RDW Coeff of [place] 14.3 Plt Count 138 MPV 8.9 L Immature Gran % (Auto) 0.5 Neut % (Auto) 85.8 Lymph % (Auto) 6.1 [place] % (Auto) 7.6 Eos % (Auto) 0.0 Baso % (Auto) 0.0 Neut # (Auto) 7.50 H Lymph # (Auto) 0.53 L [place] # (Auto) 0.66 H Eos # (Auto) 0.00 Baso # (Auto) 0.00 Immature Gran # (Auto) 0.04 Diagnostic Findings Telemetry personally reviewed and noted for rate controlled atrial fibrillation. He was in sinus rhythm up until approximately 08/23/2023 at 2340. ECG personally reviewed 08/24/2023 at 5:22 AM: Atrial fibrillation 82 bpm. Echo 05/02/2023: Normal LV size, wall motion, systolic function. EF 60 to 65%. Normal RV size and systolic function. No significant valvular abnormalities. Operative note reviewed as noted above in HPI. Labs reviewed and notable for mild anemia. Labs from 08/15/2023 demonstrated normal potassium, normal renal function. Medications Administered Current Inpatient Medications Aspirin (Aspirin 81 Mg Chew) 81 mg PO QAM [facility] Stop: 09/22/23 08:59 Last Admin: 08/24/23 08:41 Dose: 81 mg Atenolol (Atenolol 25 Mg Tablet) 25 mg PO DAILY [facility] Stop: 09/22/23 08:59 Last Admin: 08/24/23 08:23 Dose: Not Given Clopidogrel Bisulfate (Clopidogrel Bisulfate 75 Mg Tab) 75 mg PO QAM [facility] Stop: 09/22/23 08:59 Last Admin: 08/24/23 08:41 Dose: 75 mg Fish Oil ([place]-3 (Purified Fish Oil) 1 Gm Cap) 1 gm PO DAILY [facility] Stop: 09/22/23 08:59 Last Admin: 08/24/23 08:41 Dose: 1 gm Lactated Ringer's (Lr) 1,000 mls @ 125 mls/hr IV .Q8H [facility] Stop: 09/21/23 12:51 Last Admin: 08/24/23 15:27 Dose: 125 mls/hr Lidocaine (Lidocaine 5% 1 Patch) 1 patch TD DAILY PRN PRN Reason: Pain Stop: 09/21/23 13:08 Oxycodone/Acetaminophen (Oxycodone/Acetaminophen 5mg/325mg Tab) 1 - 2 tab PO Q4H PRN PRN Reason: Pain (Scale 3,4,5,6) Stop: 09/05/23 12:51 Pseudoephedrine HCl (Pseudoephedrine Hcl 30 Mg Tab) 60 mg PO Q6H [facility] Stop: 09/23/23 13:59 Last Admin: 08/24/23 13:26 Dose: 60 mg Rosuvastatin Calcium (Rosuvastatin Calcium 20 Mg Tab) 40 mg PO DAILY [facility] Stop: 09/22/23 08:59 Last Admin: 08/24/23 08:41 Dose: 40 mg Tamsulosin HCl (Tamsulosin Hcl 0.4 Mg Cap) 0.4 mg PO DAILY [facility] Stop: 09/22/23 08:59 Last Admin: 08/24/23 08:41 Dose: 0.4 mg Vitamin B Complex (Vitamin B Complex Tab) 1 tab PO DAILY [facility] Stop: 09/22/23 08:59 Last Admin: 08/24/23 08:41 Dose: 1 tab Vitamin D (Cholecalciferol 25 Mcg (1000 Units) Tab) 25 mcg PO DAILY [facility] Stop: 09/22/23 08:59 Last Admin: 08/24/23 08:41 Dose: 25 mcg PG Care Time/CCT Total # of Minutes Spent Total Time Spent with Patient: Total time spent is greater than 50% in coordination of care (as documented) at patient's floor/unit and/or counseling patient: Coding Level of Care Code 01186 INT INP/OBS CARE 3/75MIN Diagnoses Atrial fibrillation I48.91 Coronary artery disease involving [place] coronary artery of [place] heart without angina pectoris I25.10 Coronary Disease-Associated Artery/Lesion type: [place] artery [place] vs. transplanted heart: [place] heart Associated angina: without angina Dyslipidemia E78.5 Essential hypertension I10 Hypertension type: essential hypertension (2) Coronary artery disease Coronary Disease-Associated Artery/Lesion type: [place] artery [place] vs. transplanted heart: [place] heart Associated angina: without angina Qualified Code(s): I25.10 - Atherosclerotic heart disease of [place] coronary artery without angina pectoris (4) HTN (hypertension) Hypertension type: essential hypertension Qualified Code(s): I10 - Essential (primary) hypertension
[2023-08-24] MEDS: HEPARIN SODIUM/DEXTROSE 25,000 UNITS/500 ML BAG IV SCH (18:23)
[2023-08-24 18:24] LABS: Basophils # (auto) 0.01 K/uL (0.00-0.20); Basophils % (auto) 0.2 %; Eosinophils # (auto) 0.11 K/uL (0.00-0.50); Eosinophils % (auto) 2.1 %; Hemoglobin 10.8 g/dl (14.0-18.0); Immature Granulocytes # (auto) 0.01 K/uL (0.01-0.20); Immature Granulocytes % (auto) 0.2 %; Lymphocytes # (auto) 0.67 K/uL (1.20-3.40); Lymphocytes % (auto) 12.8 %; Mean Corpuscular Hemoglobin 28.8 pg (25.0-34.0); Mean Corpuscular Hgb Conc 32.7 g/dL (32.0-36.0); Mean Platelet Volume 9.2 fL (9.4-12.4); Monocytes # (auto) 0.47 K/uL (0.11-0.59); Neutrophils # (auto) 3.95 K/uL (1.40-6.50); Neutrophils % (auto) 75.7 %; Platelet Count 119 K/uL (130-400); RDW Coefficient of Variation 14.4 % (11.5-14.5); RDW Standard Deviation 46.3 fL (36.4-46.3); Red Blood Count 3.75 M/uL (4.70-6.10); White Blood Count 5.22 K/ul (4.8-10.8)
[2023-08-24] MEDS: Heparin IV Adult Wt-Based Low-Dose *NO* INITIAL Bolus Protocol IV STA (18:24)
[2023-08-24 18:32] LABS: ANTI-Xa, UFH(UnfractionatedHep < 0.10 IU/ml (0.3-0.7); Partial Thromboplastin Time 27 Seconds (21-31); Prothrombin Time 10.7 Seconds (9.0-12.0)
[2023-08-25 01:03] LABS: ANTI-Xa, UFH(UnfractionatedHep 0.16 IU/ml (0.3-0.7)
[2023-08-25] MEDS: HEPARIN SOD (PORCINE) 1000 UNIT/ML IV ONE (01:50)
[2023-08-25 04:27] VITALS: TEMP 97.9
[2023-08-25 05:25] LABS: Est GFR (African American) 131.4 ml/min; Est GFR (Non-African American) 113.4 ml/min; Magnesium 1.4 mg/dl (1.7-2.4); Potassium 3.9 mmol/L (3.5-5.1)
[2023-08-25 05:40] LABS: Thyroid Stimulating Hormone 2.468 uIu/ml (0.300-4.500)
[2023-08-25 07:55] LABS: ANTI-Xa, UFH(UnfractionatedHep 0.39 IU/ml (0.3-0.7)
--- NOTE | 2023-08-25 12:44 | Cardiology Progress Note ---
Date of Service August 25, 2023 Assessment & Plan (1) Dyslipidemia: (2) HTN (hypertension): (3) Bilateral carotid artery disease: Plan ASSESSMENT/PLAN: 1. Atrial fibrillation: Converted spontaneously to sinus rhythm overnight. He was asymptomatic while in A-fib with normal heart rate. Continue atenolol. This could represent postop A-fib but also may have paroxysmal atrial fibrillation without knowing. Can replace heparin with Eliquis 5 mg twice daily upon discharge. Unless needed from a vascular standpoint, would discontinue Plavix while on Eliquis to avoid triple therapy and increased bleeding risk. If felt to be postop A-fib, could potentially discontinue antic oagulation therapy in the outpatient setting. Could consider 30-day event monitor. 2. CAD s/p RCA PCI: No angina. Single antiplatelet therapy would suffice from a cardiac standpoint, especially in the setting of anticoagulation therapy as above. If Plavix is not necessary from a vascular standpoint, can discontinue Plavix while on anticoagulation therapy and continue aspirin 81 mg daily indef initely. Continue high intensity statin therapy. 3. Dyslipidemia: Continue high intensity statin therapy. Most recent LDL was excellent. 4. Hypertension: Normotensive today. Beta-abdoulaye has been resumed. 5. Hypomagnesemia: Will defer to primary service. 6. Disposition: Patient care and recommendations were communicated with consulting provider, Verito Singh. Cardiology will sign off. Have requested cardiology office to arrange appointment with his primary dough cutter, Dr. Ochoa, a few weeks after discharge. Admission and Anticipated Discharge Date Admission Date: August 22, 2023 Subjective Patient seen late this morning. He converted to sinus rhythm at 0057 AM this morning. He remained asymptomatic while in atrial fibrillation. He denies chest pain, shortness of breath, lightheadedness, syncope, near syncope, edema, or bleeding. He was alone in his hospital room. Review of systems: As above. Physical Exam Physical Exam: Gen.: No acute distress. Alert. HEENT: Anicteric sclera. Neck: No JVD. Cardiac: No ventricular heave. Regular. Normal rate. Normal S1-S2. No murmurs, rubs, or gallops. Pulmonary: Clear to auscultation bilaterally without wheezes, rales, or rhonchi. Abdomen: Soft, nontender, nondistended, with normoactive bowel sounds. No bruits noted. Extremities: 1+ radial pulses bilaterally. No edema or cyanosis. Results & Data Vital Signs (Past 12 Hours) Vital Signs Temp Pulse Pulse Resp BP BP Pulse Ox 08/25/23 12:29 36.6 C 94 H 20 102/64 97 08/25/23 12:15 93 H 23 08/25/23 12:00 93 H 26 H 08/25/23 12:00 102/54 L 08/25/23 11:45 91 H 21 08/25/23 11:30 96 H 24 94 08/25/23 11:15 64 18 97 08/25/23 11:00 87 24 97 08/25/23 11:00 130/55 L 08/25/23 10:45 93 H 26 H 96 08/25/23 10:30 80 18 98 08/25/23 10:15 92 H 22 97 08/25/23 10:00 116/54 L 08/25/23 10:00 89 21 97 08/25/23 09:45 91 H 21 97 08/25/23 09:30 84 27 H 98 08/25/23 09:15 94 H 21 96 08/25/23 09:00 94 H 21 96 08/25/23 09:00 116/52 L 08/25/23 08:45 97 H 16 95 08/25/23 08:30 98 H 21 95 08/25/23 08:15 108 H 24 08/25/23 08:08 109/62 08/25/23 08:08 106 H 08/25/23 08:07 103 H 19 08/25/23 08:07 102/51 L 08/25/23 08:00 08/25/23 08:00 70 08/25/23 08:00 102 H 08/25/23 08:00 08/25/23 08:00 103 H 08/25/23 07:00 95 H 15 08/25/23 07:00 123/56 L 08/25/23 06:15 115/55 L 08/25/23 06:00 102 H 20 08/25/23 05:00 103 H 23 97 08/25/23 05:00 131/67 08/25/23 04:00 102 H 16 95 08/25/23 04:00 125/60 08/25/23 04:00 36.6 C 08/25/23 03:00 101 H 23 08/25/23 03:00 108/45 L 97 08/25/23 02:12 104 H 20 08/25/23 02:12 109/48 L 95 08/25/23 01:00 107 H 28 H 94 08/25/23 01:00 101/54 L O2 Del Method 08/25/23 12:29 Room Air 08/25/23 12:15 08/25/23 12:00 08/25/23 12:00 08/25/23 11:45 08/25/23 11:30 08/25/23 11:15 08/25/23 11:00 08/25/23 11:00 08/25/23 10:45 08/25/23 10:30 08/25/23 10:15 08/25/23 10:00 08/25/23 10:00 08/25/23 09:45 08/25/23 09:30 08/25/23 09:15 08/25/23 09:00 08/25/23 09:00 08/25/23 08:45 08/25/23 08:30 Room Air 08/25/23 08:15 08/25/23 08:08 08/25/23 08:08 08/25/23 08:07 08/25/23 08:07 08/25/23 08:00 Room Air 08/25/23 08:00 08/25/23 08:00 08/25/23 08:00 Room Air 08/25/23 08:00 08/25/23 07:00 08/25/23 07:00 08/25/23 06:15 08/25/23 06:00 08/25/23 05:00 08/25/23 05:00 08/25/23 04:00 08/25/23 04:00 08/25/23 04:00 08/25/23 03:00 08/25/23 03:00 08/25/23 02:12 08/25/23 02:12 08/25/23 01:00 08/25/23 01:00 Laboratory Results Laboratory Results - last 24 hr 08/24/23 08/25/23 08/25/23 18:01 00:38 04:51 WBC 5.22 RBC 3.75 L Hgb 10.8 L Hct 33.0 L MCV 88.0 MCH 28.8 MCHC 32.7 RDW Std Deviation 46.3 RDW Coeff of [place] 14.4 Plt Count 119 L MPV 9.2 L Immature Gran % (Auto) 0.2 Neut % (Auto) 75.7 Lymph % (Auto) 12.8 [place] % (Auto) 9.0 Eos % (Auto) 2.1 Baso % (Auto) 0.2 Neut # (Auto) 3.95 Lymph # (Auto) 0.67 L [place] # (Auto) 0.47 Eos # (Auto) 0.11 Baso # (Auto) 0.01 Immature Gran # (Auto) 0.01 PT 10.7 INR 1.0 APTT 27 PTT Ratio 1.0 Heparin Anti-Xa, Unfract < 0.10 L 0.16 L Sodium 132 L Potassium 3.9 Chloride 97 L Carbon Dioxide 32 Anion Gap 3 BUN 9 Creatinine 0.41 L Est Cr Clr Drug Dosing 146.0 Est GFR ( Amer) 131.4 Est GFR (Non-Af Amer) 113.4 BUN/Creatinine Ratio 22.0 H Glucose 94 Calcium 8.0 L Magnesium 1.4 L TSH 2.468 08/25/23 07:38 WBC RBC Hgb Hct MCV MCH MCHC RDW Std Deviation RDW Coeff of [place] Plt Count MPV Immature Gran % (Auto) Neut % (Auto) Lymph % (Auto) [place] % (Auto) Eos % (Auto) Baso % (Auto) Neut # (Auto) Lymph # (Auto) [place] # (Auto) Eos # (Auto) Baso # (Auto) Immature Gran # (Auto) PT INR APTT PTT Ratio Heparin Anti-Xa, Unfract 0.39 Sodium Potassium Chloride Carbon Dioxide Anion Gap BUN Creatinine Est Cr Clr Drug Dosing Est GFR ( Amer) Est GFR (Non-Af Amer) BUN/Creatinine Ratio Glucose Calcium Magnesium TSH Diagnostic Findings Telemetry personally reviewed: Sinus rhythm. A-fib converted to sinus rhythm on 08/25/2023 at 0057. Labs reviewed and notable for stable renal function, normal potassium. Normal TSH, hypomagnesemia. Medications Administered Current Inpatient Medications Aspirin (Aspirin 81 Mg Chew) 81 mg PO QAM [facility] Stop: 09/22/23 08:59 Last Admin: 08/25/23 08:06 Dose: 81 mg Atenolol (Atenolol 25 Mg Tablet) 25 mg PO DAILY [facility] Stop: 09/22/23 08:59 Last Admin: 08/25/23 08:07 Dose: 25 mg Clopidogrel Bisulfate (Clopidogrel Bisulfate 75 Mg Tab) 75 mg PO QAM [facility] Stop: 09/22/23 08:59 Last Admin: 08/25/23 08:08 Dose: 75 mg Fish Oil ([place]-3 (Purified Fish Oil) 1 Gm Cap) 1 gm PO DAILY [facility] Stop: 09/22/23 08:59 Last Admin: 08/25/23 08:09 Dose: 1 gm Lactated Ringer's (Lr) 1,000 mls @ 125 mls/hr IV .Q8H [facility] Stop: 09/21/23 12:51 Last Infusion: 08/25/23 12:24 Dose: Infused Heparin Sodium/Dextrose (Heparin Sodium/Dextrose) 25,000 units in 500 mls @ 20 mls/hr IV .Q24H [facility]; Protocol Stop: 09/23/23 17:59 Last Titration: 08/25/23 12:24 Dose: Infused Lidocaine (Lidocaine 5% 1 Patch) 1 patch TD DAILY PRN PRN Reason: Pain Stop: 09/21/23 13:08 Oxycodone/Acetaminophen (Oxycodone/Acetaminophen 5mg/325mg Tab) 1 - 2 tab PO Q4H PRN PRN Reason: Pain (Scale 3,4,5,6) Stop: 09/05/23 12:51 Pseudoephedrine HCl (Pseudoephedrine Hcl 30 Mg Tab) 60 mg PO Q6H [facility] Stop: 09/23/23 13:59 Last Admin: 08/25/23 07:45 Dose: 60 mg Rosuvastatin Calcium (Rosuvastatin Calcium 20 Mg Tab) 40 mg PO DAILY [facility] Stop: 09/22/23 08:59 Last Admin: 08/25/23 08:09 Dose: 40 mg Tamsulosin HCl (Tamsulosin Hcl 0.4 Mg Cap) 0.4 mg PO DAILY [facility] Stop: 09/22/23 08:59 Last Admin: 08/25/23 08:10 Dose: 0.4 mg Vitamin B Complex (Vitamin B Complex Tab) 1 tab PO DAILY [facility] Stop: 09/22/23 08:59 Last Admin: 08/25/23 08:10 Dose: 1 tab Vitamin D (Cholecalciferol 25 Mcg (1000 Units) Tab) 25 mcg PO DAILY [facility] Stop: 09/22/23 08:59 Last Admin: 08/25/23 08:07 Dose: 25 mcg PG Care Time/CCT Total # of Minutes Spent Total Time Spent with Patient: Total time spent is greater than 50% in coordination of care (as documented) at patient's floor/unit and/or counseling patient: Coding Level of Care Code 00180 SUB INP/OBS CARE 3/50MIN Diagnoses Dyslipidemia E78.5 Essential hypertension I10 Hypertension type: essential hypertension Bilateral carotid artery disease I77.9 (2) HTN (hypertension) Hypertension type: essential hypertension Qualified Code(s): I10 - Essential (primary) hypertension
--- NOTE | 2023-08-25 12:50 | Surgery Progress Note ---
Date of Service August 25, 2023 Assessment & Plan (1) Left carotid artery stenosis: Plan: POD #3 after L TCAR. Pt feeling well post op. Now back in reg rhythm. Will d/c today on Eliquis per cardiology. Admission and Anticipated Discharge Date Admission Date: August 22, 2023 Subjective Patient without complaint. Has converted back to sinus rhythm. Physical Exam Constitutional: WD/WN, vitals as above Neck: trachea midline Respiratory: normal respiratory effort; no respiratory distress Cardiovascular: Rate/Rhythm: regular rate and regular rhythm Skin: + incision (dry and clean) Neurologic: CN's II-XI intact bilaterally and moves all extremities Results & Data Vital Signs (Past 12 Hours) Vital Signs Temp Pulse Pulse Resp BP BP Pulse Ox 08/25/23 12:29 36.6 C 94 H 20 102/64 97 08/25/23 12:15 93 H 23 08/25/23 12:00 93 H 26 H 08/25/23 12:00 102/54 L 08/25/23 11:45 91 H 21 08/25/23 11:30 96 H 24 94 08/25/23 11:15 64 18 97 08/25/23 11:00 87 24 97 08/25/23 11:00 130/55 L 08/25/23 10:45 93 H 26 H 96 08/25/23 10:30 80 18 98 08/25/23 10:15 92 H 22 97 08/25/23 10:00 116/54 L 08/25/23 10:00 89 21 97 08/25/23 09:45 91 H 21 97 08/25/23 09:30 84 27 H 98 08/25/23 09:15 94 H 21 96 08/25/23 09:00 94 H 21 96 08/25/23 09:00 116/52 L 08/25/23 08:45 97 H 16 95 08/25/23 08:30 98 H 21 95 08/25/23 08:15 108 H 24 08/25/23 08:08 109/62 08/25/23 08:08 106 H 08/25/23 08:07 103 H 19 08/25/23 08:07 102/51 L 08/25/23 08:00 08/25/23 08:00 70 08/25/23 08:00 102 H 08/25/23 08:00 08/25/23 08:00 103 H 08/25/23 07:00 95 H 15 08/25/23 07:00 123/56 L 08/25/23 06:15 115/55 L 08/25/23 06:00 102 H 20 08/25/23 05:00 103 H 23 97 08/25/23 05:00 131/67 08/25/23 04:00 102 H 16 95 08/25/23 04:00 125/60 08/25/23 04:00 36.6 C 08/25/23 03:00 101 H 23 08/25/23 03:00 108/45 L 97 08/25/23 02:12 104 H 20 08/25/23 02:12 109/48 L 95 08/25/23 01:00 107 H 28 H 94 08/25/23 01:00 101/54 L O2 Del Method 08/25/23 12:29 Room Air 08/25/23 12:15 08/25/23 12:00 08/25/23 12:00 08/25/23 11:45 08/25/23 11:30 08/25/23 11:15 08/25/23 11:00 08/25/23 11:00 08/25/23 10:45 08/25/23 10:30 08/25/23 10:15 08/25/23 10:00 08/25/23 10:00 08/25/23 09:45 08/25/23 09:30 08/25/23 09:15 08/25/23 09:00 08/25/23 09:00 08/25/23 08:45 08/25/23 08:30 Room Air 08/25/23 08:15 08/25/23 08:08 08/25/23 08:08 08/25/23 08:07 08/25/23 08:07 08/25/23 08:00 Room Air 08/25/23 08:00 08/25/23 08:00 08/25/23 08:00 Room Air 08/25/23 08:00 08/25/23 07:00 08/25/23 07:00 08/25/23 06:15 08/25/23 06:00 08/25/23 05:00 08/25/23 05:00 08/25/23 04:00 08/25/23 04:00 08/25/23 04:00 08/25/23 03:00 08/25/23 03:00 08/25/23 02:12 08/25/23 02:12 08/25/23 01:00 08/25/23 01:00
[2023-08-25 13:47] VITALS: BP 98/70; PULSE 80; RESP 26; O2SAT 96
[2023-08-25] MEDS: APIXABAN 5 MG TABLET PO SCH (14:17)
[2023-08-25] MEDS ORDERED: APIXABAN 5 MG TABLET PO SCH (21:00)
--- NOTE | 2023-08-26 05:38 | Electrocardiogram Report ---
Test Reason : Blood Pressure : / mmHG Vent. Rate : 082 BPM Atrial Rate : 182 BPM P-R Int : 000 ms QRS Dur : 074 ms QT Int : 368 ms P-R-T Axes : 000 016 034 degrees QTc Int : 429 ms Atrial fibrillation Low voltage QRS Abnormal ECG When compared with ECG of 27-APR-2023 02:23, Atrial fibrillation has replaced Sinus rhythm Vent. rate has decreased BY 41 BPM Nonspecific T wave abnormality no longer evident in Lateral leads Confirmed by Min Munoz ([id number]) on 08/26/2023 5:38:26 AM Referred By: Braulio Woods Confirmed By:Min Munoz
--- NOTE | 2023-08-27 06:05 | Electrocardiogram Report ---
Test Reason : Blood Pressure : / mmHG Vent. Rate : 085 BPM Atrial Rate : 085 BPM P-R Int : 210 ms QRS Dur : 074 ms QT Int : 358 ms P-R-T Axes : 047 012 047 degrees QTc Int : 426 ms Sinus rhythm with 1st degree A-V block Low voltage QRS Borderline ECG When compared with ECG of 24-AUG-2023 05:22, Sinus rhythm has replaced Atrial fibrillation Confirmed by Min Munoz ([id number]) on 08/27/2023 6:05:19 AM Referred By: Braulio Woods Confirmed By:Min Munoz
--- NOTE | 2023-08-29 08:22 | Discharge Summary ---
Date of Service August 29, 2023 Admission HPI Per Admitting Provider Chief Complaint: _Follow up for carotid stenosis HPI: _Mr. Fernando is an elderly male presents to Dr. Woods vascular surgery clinic today as a new patient in consultation for bilateral carotid stenosis noted on recent imaging. Patient unfortunately suffered an episode of cardiac arrest in April 2023, and was flown to [facility], where he was evaluated. During that hospital stay at [facility], he was found to have significant bilateral carotid stenosis, although was felt to be asymptomatic from that. His diamond cutter noted that the patient has not yet been seen to have this addressed, and referred him to our office. Upon questioning, patient denies any symptoms of cerebrovascular insufficiency such as amaurosis, unilateral extremity weakness numbness or tingling, difficulty speaking or swallowing, facial droop, sudden onset confusion. He has done well since his release from the hospital, and continues to improve. He denies other complaints at this time including headache, fever, chest pain, shortness of breath, abdominal pain, nausea, vomiting, rest pain, claudication, nonhealing wounds or ulcers, other complaints. Imaging: Patient had a CTA of the neck performed at [facility] in April 2023, which demonstrates 60 to 70% stenosis of the right ICA, and 80 to 90% stenosis of the left ICA. He had a carotid artery duplex done today that showed severe stenosis of the left internal carotid artery and moderate stenosis of the right. Current Home Meds: (Last Updated 08/02 08:43) aspirin (aspirin 81 mg oral tablet, chewable) 81 mg PO Daily atenolol (atenolol 25 mg oral tablet) cholecalciferol (Vitamin D3 25 mcg (1000 intl units) oral capsule) 25 mcg PO Daily multivitamin (Vitamin B Complex oral tablet) 1 tab PO Daily omega-3 polyunsaturated fatty acids ([place]-3 1000 mg oral capsule) 1,000 mg PO Daily rosuvastatin (rosuvastatin 40 mg oral tablet) 40 mg PO Daily tamsulosin (tamsulosin 0.4 mg oral capsule) 0.4 mg PO Daily Allergies and Sensitivities: No Known Medication Allergies Past Medical History: Problems: Bilateral carotid artery stenosis RSV infection Status post fall OBJECTIVE Vitals: Last Updated 08/03/23 08:49 Date Temp BP Location Pulse RR SpO2 Pain 08/03/23 110/68 Right Arm 08/03/23 118/70 Left Arm 90 98 05/06/23 36.1 109/57 Right Arm 73 20 93 Vital Signs are the last 3 documented. Physical Exam _ General: no acute distress, resting comfortably in his chair HEENT:normocephalic,atraumatic Cardiovascular: regular rate Pulmonary: breathing comfortably on room air, equal chest rise bilaterally Abdomen: soft, nondistended Extremity:Warm and well perfused. 2+ radial pulse bilaterally. No wounds on feet Neuro: CNII-CNXII grossly intact, no focal deficits appreciated Skin: warm and well perfused, no rashes or jaundice appreciated ASSESSMENT: _ PLAN: _ 1 ) _bilateral carotid stenosis Patient has asymptomatic bilateral carotid stenosis, worse in the left than the right. Due to the severity of the left ICA stenosis, I would consider him for surgical intervention. The patency of his left internal carotid artery was confirmed with ultrasound. He does have 90% stenosis of the left internal carotid artery on CTA of his neck. We would recommend the patient undergo a TCAR procedure for his asymptomatic carotid artery stenosis on the left. We discussed the procedure steps and reasons for intervention in detail. The risks and benefits of the procedure were discussed including the risk of stroke, MO, nerve injury.. The patient was provided the opportunity to ask questions and they were answered in detail to his satisfaction. He would like some time to think about intervention. We will go ahead and have him call our office if he decides to undergo intervention. If not we will see him back in the office in 3 months with repeat carotid artery duplex. Patient was counseled on signs and symptoms of TIA and stroke and instructed to call our office if he experiences any of these symptoms. He expressed understanding. Patient and his are agreeable to this plan. They will call with any other questions. Thank you for letting us participate in the care of this patient. I saw and evaluated the patient. Discussed with the resident and agree with the resident's findings and plan as documented in the resident's note. I have personally spent__25___ minutes performing [id number] and yat-[id number] activities on this date of service. Activities Include: _x_ review of the medical record _x_ obtaining a history _x_ physical exam/evaluation __ review labs _x_ review radiology reports _x_ counseling/educating patient/family/caregiver __ discussion/referral to other healthcare professional _x_ documenting care in the medical record __ independent interpretation of results __ communication of results to patient/family/caregiver __ coordination of care Signature Line Electronic Signature on File CC: Timothy Ochoa MD [address] [facility] [address] [facility] [address] * CC: MARK Alcaraz [facility] [address] [facility] [address] * Placido Sunshine MD Author Signature Dt/Tm: 08/03/2023 09:32 AM Resident Division of General Surgery Electronically Reviewed/Signed by: Braulio Woods MD Cosigner Signature Dt/Tm: 08/03/2023 09:38 AM Service Delivery Manager Palomo Dela Cruz [facility] [address], [address] [place] [address] PC Result Type: .Outpt Ltr Date of Service: August 03, 2023 09:21 EDT Authorization Status: Final Author or Import Date: MD Bita, Placido on August 03, 2023 09:22 EDT Verified By: MD Peggy, Braulio Bran on August 03, 2023 09:38 EDT Encounter info: [id number], [place] [address], Clinic, 08/03/2023 - 08/03/2023 Admission Exam Per Admitting Provider General: no acute distress, resting comfortably in his chair HEENT:normocephalic,atraumatic Cardiovascular: regular rate Pulmonary: breathing comfortably on room air, equal chest rise bilaterally Abdomen: soft, nondistended Extremity:Warm and well perfused. 2+ radial pulse bilaterally. No wounds on feet Neuro: CNII-CNXII grossly intact, no focal deficits appreciated Skin: warm and well perfused, no rashes or jaundice appreciated Principal Diagnosis 1. s/p L TCAR 2. L ICA stenosis Discharge Exam Constitutional WD/WN, vitals as above healthy appearing and cooperative; not in distress ENMT Ears: no hearing impairment Neck trachea midline Respiratory normal respiratory effort Auscultation: lungs clear to auscultation bilaterally and + diminished lung sounds Cardiovascular Rate/Rhythm: regular rate, regular rhythm and + irregularly irregular Vessels: posterior tibial pulses present, dorsalis pedis pulses present and radial pulses present; + abnormal peripheral pulses Extremities: normal capillary refill; no edema Gastrointestinal (Abdomen) Inspection/Auscultation: abdomen normal to inspection and normal bowel sounds Percussion/Palpation: abdomen soft; abdomen nontender Musculoskeletal no cyanosis or clubbing, extremities motor strength 5/5 Skin no rashes, warm and dry (L supraclavicular incision C/D/I, mild local ecchymosis,tenderness) Neurologic moves all extremities and awake; no focal motor deficits and not confused Psychiatric A+Ox3, euthymic affect Discharge Data Allergies Allergy/AdvReac Type Severity Reaction Status Date / Time sertraline AdvReac Unknown Fatigued Verified 08/26/23 11:42 Consultations 08/22/23 12:52 Consult Transmission Operator Routine 08/24/23 13:10 Consult Cardiology Routine Procedures Performed Operation Date: 08/22/23 08:00 Actual Procedures p Left Transcarotid Artery Revascularization(Left) - Braulio Woods MD Ordered Studies 08/22/23 07:10 EV angio carotid cereb LT Routine US EV guide vascular access Routine Hospital Course (1) Left carotid artery stenosis: POD #3 after L TCAR. Pt feeling well post op. Now back in reg rhythm. Will d/c today on Eliquis per cardiology. Total Time Total Time Spent Total Time Spent (In Minutes): 0 Discharge Plan Discharge Items Patient Disposition: Home - Self-Care Reason For Visit: Bilateral Carotid Artery Stenosis Discharge Diagnosis: Bilateral carotid artery stenosis Activity: Per Instructions section Non-emergency contact: Surgeon Call non-emergency contact if: your temperature is above 101.5, your wound has increased redness, your wound has increased drainage and your wound pain has increased Follow-up/Referrals: Kole Shin CRNP [Primary Care Provider] - (PCP office will contact patient to set follow up appointment. ) Diet: Heart Healthy Addtl Attending Provider Instructions: SPECIAL CARE INSTRUCTIONS: Medications: * Continue to take Aspirin, plavix, and statin as directed. * Start eliquis as directed and follow up with your diamond cutter for the atrial fibrillation Incision Care: * You may shower, but do not rub incision. You may let the warm soapy water run over it. Be sure to dry the incision well after bathing. * Do not shave directly over the incision until it is healed. * DO NOT IMMERSE THE INCISION IN A TUB/POOL/etc. UNTIL HEALED. Restrictions: * Do not drive for at least one week or if you are still taking any narcotic pain medication. * Do not lift anything heavier than a gallon of milk for one week after going home. Possible Complications: * Numbness - It is normal to have some numbness around the incision. Numbness can extend beyond the incision to areas of the neck, ear and face. The numbness is due to bruising of nerves during the surgery and will gradually improve over a period of months. * Hoarseness/Difficulty Speaking and Swallowing - The bruising of nerves in the neck can also cause a hoarse voice, difficulty speaking or swallowing. This may improve over time, HOWEVER, if it continues for more than a few days please contact our office ([phone]). * Excessive Swelling - There will be some swelling immediately after surgery which usually resolves within one week. If you notice that the swelling is getting worse, notify your surgeon ([phone]). * Drainage/Bleeding - If there is any drainage or bleeding, it should be a very small amount (less than a teaspoon per day). If you have excessive bleeding or drainage from the incision, call your surgeon ([phone]) right away. ACTIVATION OF EMERGENCY MEDICAL SYSTEM: Call 911, immediately, if you experience any of the following: Warning Signs and Symptoms of Stroke: * Sudden numbness or weakness of the face, arm or leg, especially on one side of the body * Sudden confusion, trouble speaking or understanding * Sudden trouble seeing in one or both eyes * Sudden trouble walking, dizziness, loss of balance or coordination * Sudden severe headache with no cause Do not delay calling 911 if you experience any warning signs or symptoms of a stroke. Delay in seeking medical attention may affect what treatments can be given to you. Risk Factors for Stroke: You can reduce your chances of stroke by working with your medical provider to adopt a healthy lifestyle. Some specific ways to lower your chance of stroke are: * If you are a smoker, now is the time to stop smoking cigarettes * If you are diabetic, improve the control of your blood sugars * Avoid excessive amounts of alcohol * Control high blood pressure * Lose weight if you are overweight * Be sure to lead an active lifestyle * Eat a healthy diet low in salt, cholesterol and fat You should know about other risk factors for stroke that you are unable to cont rol. These include: * Age 55 years or older * Male gender * Certain racial groups: , or / * Family History of Stroke, Mini stroke or Heart Attack * Sickle Cell Disease You will be receiving a call from the Vascular Surgery Nurse after you are discharged. FOLLOW UP VISIT: It is important for you to keep your follow up appointments with your medical provider. Keep any scheduled doctor appointments. Call [phone] to schedule a follow up appointment if one not already scheduled. Pending Studies at Discharge: No Stand-Alone Forms: [facility] [employer], Smoking Cessation Medications and DC Order Prescriptions: New Eliquis 5 mg tablet 5 mg PO Q12H Qty: 60 11RF pseudoephedrine HCl [Sudafed] 30 mg tablet 30 mg PO Q6H Qty: 20 0RF oxycodone-acetaminophen [Percocet] 5-325 mg tablet 1 tab PO Q8H PRN (Reason: pain) Qty: 10 0RF Continued tamsulosin 0.4 mg capsule 0.4 mg PO DAILY Qty: 90 3RF clopidogrel [Plavix] 75 mg tablet 75 mg PO QAM rosuvastatin 40 mg tablet 40 mg PO DAILY Qty: 90 3RF atenolol 25 mg tablet See Rx Instructions .ROUTE .COMPLEX Qty: 90 3RF Dose Instruction: TAKE 1 TABLET DAILY Rx Instructions: TAKE 1 TABLET DAILY cholecalciferol (vitamin D3) 25 mcg (1,000 unit) capsule 25 mcg PO DAILY omega-3 fatty acids 1,000 mg capsule 1,000 mg PO DAILY vitamin B complex Tablet 1 tab PO DAILY lidocaine [Aspercreme (lidocaine)] 4 % adhesive patch,medicated 1 patch topical DAILY PRN (Reason: Pain) aspirin [Colin Chewable Aspirin] 81 mg tablet,chewable 81 mg PO QAM Discharge Orders: Discharge Order (Routine); Ordered 08/25/23 Ordered By: Braulio Woods Admission Data Admit Date/Time: 08/22/23 12:43 Attending Provider: Simoni,Braulio J Admit Provider: Braulio Woods Primary Care Provider: Kole Shin. Other Providers: Felipe Chaves; Jhonatan Silvestre; Rodriguez Mclaughlin; Albin Enriquez; Vamsi Mahan; Brian Pillai; Marcio Melvin; Shayna Rodriguez; Tori Sorensen; Jordan Sweeney; Noman Mauricio; Alexandria Childress; Timothy Ochoa Jr Other Interventions: Discharge Summary Assessment (RN) Last Done: 08/25/23 14:23
== END 2023-08-25 15:32 | disposition home or self-care (01) | DRG 36 ==
LOC: ASU 07:39 → 1E 12:43
PROC: EV.TCAR (2023-08-22 08:00)